=== PATIENT | female | born 1985 ===

== ENCOUNTER → 2019-09-18 08:40 | Outpatient (BNVA) | payer OTHER, SELFPAY | PROVIDERS: Visit Provider Psychiatry & Neurology Psychiatry | DX: F33.3 Major depressive disorder, recurrent, severe with psychotic symptoms (principal); F43.10 Post-traumatic stress disorder, unspecified; G47.00 Insomnia, unspecified | CPT/HCPCS: 99204 ==

== ENCOUNTER 2019-09-18 11:35 | Inpatient (IN) | payer OTHER, SELFPAY ==
[2019-09-18 11:40] VITALS: BP 201/97; PULSE 73; RESP 18; TEMP 36.6; O2SAT 98; BMI 46.5
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
[2019-09-18 12:03] LABS: Basophils % 0.4 %; Eosinophils # 0.2 10^3/uL (0.0-0.8); Eosinophils % 1.5 %; Hematocrit 39.4 % (37.0-47.0); Hemoglobin 11.9 g/dL (11.5-15.3); Lymphocytes # 2.6 10^3/uL (0.8-4.8); Lymphocytes % 26.6 %; Mean Corpuscular HGB Conc 30.2 g/dL (30.0-36.0); Mean Corpuscular Hemoglobin 25.2 pg (28.0-34.0); Mean Corpuscular Volume 83.5 fL (81-99); Mean Platelet Volume 10.8 fL (7.4-10.4); Monocytes # 0.8 10^3/uL (0.2-0.9); Monocytes % 7.6 %; Neutrophils # 6.3 10^3/uL (1.8-7.7); Neutrophils % 63.4 %; Nucleated Red Blood Cells % 0 %; Platelet Count 334 10^3/cmm (130-400); Red Blood Count 4.72 10^6/uL (4.1-5.3); Red Cell Distribution Width 15.2 % (12.1-15.1); White Blood Count 9.9 10^3/uL (4.0-10.0)
[2019-09-18 12:12] LABS: HCG Qualitative Urine. Negative (Negative)
[2019-09-18 12:18] LABS: Alanine Aminotransferase 14 U/L (0-33); Albumin Level 4.2 g/dL (3.5-5.2); Alkaline Phosphatase 101 IU/L (35-105); Aspartate Amino Transferase 16 U/L (0-32); Blood Urea Nitrogen 10 mg/dL (6-20); Calcium 9.3 mg/dL (8.5-10.5); Carbon Dioxide 23 mmol/L (22-29); Chloride 102 mmol/L (98-107); Creatinine Clr Calc Pharmacy 151.9587; Globulin 3.7 g/dL (1.3-4.6); Glomerular Filtration Rate 95.8 mL/min (90-130); Glucose 97 mg/dL (65-115); Osmolality Calculated 280 mOsm/kg (285-295); Sodium 137 mmol/L (136-145); Total Bilirubin 0.3 mg/dL (0.15-1.2); Total Protein 7.9 g/dL (6.6-8.7)
[2019-09-18 12:21] LABS: Amphetamines Screen Urine Negative (Negative); Barbiturates Screen Urine Negative (Negative); Benzodiazepines Screen Urine Negative (Negative); Cocaine Screen Urine Negative (Negative); Opiate Screen Urine Negative (Negative); PCP Screen Urine Negative (Negative); THC Screen Urine Negative (Negative)
[2019-09-18 12:25] LABS: Alcohol Level < 10 mg/dL (0-10)
[2019-09-18 12:40] LABS: Acetaminophen < 5.0 ug/mL (10-30); Salicylate < 0.3 mg/dL (3-10)
--- NOTE | 2019-09-18 13:11 | PC.NURSE ---
Patient is very tearful at this time. Patient offered food and drink, denies need at this time. Pt denies any other needs at this time. Tissues provided to patient at this time.
[2019-09-18 13:38] VITALS: BP 171/92; PULSE 70; RESP 18; TEMP 36.6; O2SAT 100
[2019-09-18 14:00] VITALS: BP 158/100; PULSE 68; RESP 20; TEMP 36.8; O2SAT 100
[2019-09-18] MEDS: acetaminophen 325 mg Tablet 650 MG PO (20:29)
[2019-09-18] MEDS: hyDROXYzine 25 mg Capsule 50 MG PO (20:30)
--- NOTE | 2019-09-18 20:59 | PC.NURSE ---
PRN VISTARIL PT GIVEN VISTARIL 50 MG PO FOR INCREASING ANXIETY. WILL MONITOR FOR MEDICATION EFFECTIVENESS.
[2019-09-18 21:07] VITALS: BP 152/111; PULSE 73; RESP 18; TEMP 37; O2SAT 98
[2019-09-19 06:00] VITALS: BP 148/81; PULSE 59; RESP 16; TEMP 36.2; O2SAT 98
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
[2019-09-19] MEDS: fluoxetine 20 mg Capsule PO (12:52)
[2019-09-19 14:00] VITALS: BP 158/100; PULSE 72; RESP 18; TEMP 37; O2SAT 99
[2019-09-19] MEDS: propranolol 20 mg Tablet PO ×2 (14:50→20:47)
[2019-09-19] MEDS: acetaminophen 325 mg Tablet 650 MG PO (14:50)
[2019-09-19 21:55] VITALS: BP 133/82; PULSE 78; RESP 19; TEMP 37.1; O2SAT 97
[2019-09-20 06:00] VITALS: BP 120/80; PULSE 65; RESP 18; TEMP 36.9; O2SAT 98
[2019-09-20] MEDS: fluoxetine 20 mg Capsule PO (08:32)
[2019-09-20] MEDS: propranolol 20 mg Tablet PO (08:32)
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
[2019-09-20 12:53] VITALS: BP 120/80; PULSE 65; RESP 18; TEMP 36.9; O2SAT 98
== END 2019-09-20 13:50 | disposition home or self-care (01) | DRG 885 ==
LOC: ER 13:03 → NP 13:26
PROVIDERS: Admitting Provider Psychiatry & Neurology Psychiatry; Emergency Provider Emergency Medicine; Visit Provider Psychiatry & Neurology Psychiatry
DX: F33.2 Major depressive disorder, recurrent severe without psychotic features (principal); Z68.42 Body mass index [BMI] 45.0-49.9, adult; R45.851 Suicidal ideations; F60.3 Borderline personality disorder; F43.11 Post-traumatic stress disorder, acute; F17.210 Nicotine dependence, cigarettes, uncomplicated; Z62.810 Personal history of physical and sexual abuse in childhood; Z62.819 Personal history of unspecified abuse in childhood; E66.01 Morbid (severe) obesity due to excess calories; E28.2 Polycystic ovarian syndrome
CPT/HCPCS: 12345; 36415; 80053; 80306; 80307; 81025; 85025; 99284

== ENCOUNTER → 2019-09-27 11:05 | Outpatient (BNVA) | payer OTHER, SELFPAY | PROVIDERS: Visit Provider Counselor Professional | DX: F43.10 Post-traumatic stress disorder, unspecified (principal); F33.9 Major depressive disorder, recurrent, unspecified; F60.3 Borderline personality disorder | CPT/HCPCS: 90834 ==

== ENCOUNTER → 2019-10-04 08:31 | Outpatient (BNVA) | payer OTHER, SELFPAY | PROVIDERS: Visit Provider Psychiatry & Neurology Psychiatry | DX: F60.3 Borderline personality disorder (principal); F43.12 Post-traumatic stress disorder, chronic; F33.9 Major depressive disorder, recurrent, unspecified | CPT/HCPCS: 90834; 99213 ==

== ENCOUNTER → 2019-10-18 09:06 | Outpatient (BNVA) | payer OTHER, SELFPAY | PROVIDERS: Visit Provider Counselor Professional | DX: F43.10 Post-traumatic stress disorder, unspecified (principal); F33.9 Major depressive disorder, recurrent, unspecified; F60.3 Borderline personality disorder | CPT/HCPCS: 90832 ==

== ENCOUNTER → 2019-10-31 16:06 | Outpatient (BNVA) | payer OTHER, SELFPAY | PROVIDERS: Visit Provider Counselor Professional | DX: F43.10 Post-traumatic stress disorder, unspecified (principal); F33.9 Major depressive disorder, recurrent, unspecified; F60.3 Borderline personality disorder | CPT/HCPCS: 90834 ==

== ENCOUNTER → 2019-11-14 08:34 | Outpatient (BNVA) | payer OTHER, SELFPAY | PROVIDERS: Visit Provider Nurse Practitioner Psychiatric/Mental Health | DX: F33.9 Major depressive disorder, recurrent, unspecified (principal); F43.10 Post-traumatic stress disorder, unspecified; F60.3 Borderline personality disorder | CPT/HCPCS: 99213 ==

== ENCOUNTER 2020-02-24 06:55 | Outpatient (CLI) | payer SELFPAY ==
--- NOTE | 2020-02-24 07:25 | MM_ITS ---
WS: [id number] BILATERAL DIGITAL SCREENING MAMMOGRAPHY WITH CAD CLINICAL INFORMATION: SCREEN HISTORY: Screening mammogram. No current complaints. COMPARISON: January 10, 2019 TECHNIQUE: Bilateral CC and MLO views. FINDINGS: Scattered fibroglandular densities bilaterally. No suspicious focal mass, asymmetry, calcifications, or architectural distortion. No evidence of malignancy. MM/[id number] IMPRESSION: BI-RADS: 1-Negative FOLLOW UP: 1 Year Follow-up Recommend return to annual screening mammography.
== END 2020-02-24 06:56 | disposition home or self-care (01) ==
LOC: RADSHAW 06:56
PROVIDERS: Visit Provider Obstetrics & Gynecology
DX: Z12.31 Encounter for screening mammogram for malignant neoplasm of breast (principal)
CPT/HCPCS: 77067

== ENCOUNTER → 2020-03-16 15:27 | Outpatient (BNVA) | payer SELFPAY | PROVIDERS: Visit Provider Family Medicine Adult Medicine | DX: D64.9 Anemia, unspecified (principal); E66.01 Morbid (severe) obesity due to excess calories; Z68.42 Body mass index [BMI] 45.0-49.9, adult; F51.4 Sleep terrors [night terrors]; F43.10 Post-traumatic stress disorder, unspecified; F60.3 Borderline personality disorder | CPT/HCPCS: 80053; 80061; 84439; 84443; 85025 ==

== ENCOUNTER 2020-04-07 20:00 | Outpatient (CLI) | payer SELFPAY | END 2020-04-07 20:01 | disposition home or self-care (01) | LOC: SLEEP 04-08 10:24 | PROVIDERS: Visit Provider Family Medicine Adult Medicine | DX: R06.83 Snoring (principal); R53.83 Other fatigue; G47.33 Obstructive sleep apnea (adult) (pediatric) | CPT/HCPCS: 95810 ==

== ENCOUNTER 2020-04-28 20:00 | Outpatient (CLI) | payer SELFPAY | END 2020-04-28 20:01 | disposition home or self-care (01) | LOC: SLEEP 04-29 09:48 | PROVIDERS: Visit Provider Family Medicine Adult Medicine | DX: G47.33 Obstructive sleep apnea (adult) (pediatric) (principal) | CPT/HCPCS: 95811 ==

== ENCOUNTER 2021-08-30 16:34 | Emergency (ER) | payer MEDICAID, SELFPAY ==
[2021-08-30 16:42] VITALS: BP 133/86; PULSE 116; RESP 16; TEMP 36.8; O2SAT 96; BMI 52.7
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
[2021-08-30 18:42] VITALS: BP 164/95; PULSE 114; O2SAT 95
[2021-08-30 18:46] VITALS: BP 164/95; PULSE 114; RESP 16; O2SAT 95
[2021-08-30 18:46] LABS: Basophils % 0.3 %; Eosinophils % 0.1 %; Hematocrit 49.6 % (37.0-47.0); Hemoglobin 16.2 g/dL (11.5-15.3); Lymphocytes # 0.6 10^3/uL (0.8-4.8); Lymphocytes % 5.4 %; Mean Corpuscular HGB Conc 32.7 g/dL (30.0-36.0); Mean Corpuscular Hemoglobin 28.9 pg (28.0-34.0); Mean Corpuscular Volume 88.4 fl (81-99); Mean Platelet Volume 11.5 fL (7.4-10.4); Monocytes # 0.4 10^3/uL (0.2-0.9); Monocytes % 3.7 %; Neutrophils # 10.44 10^3/uL (1.8-7.7); Neutrophils % 90.2 %; Nucleated Red Blood Cells % 0 %; Platelet Count 268 10^3/cmm (130-400); Red Blood Count 5.61 10^6/uL (4.1-5.3); Red Cell Distribution Width 14.1 % (12.1-15.1); White Blood Count 11.6 10^3/uL (4.0-10.0)
[2021-08-30 19:09] VITALS: RESP 16
[2021-08-30] MEDS: morphine 4 mg/mL SDV 1 mL IVP (19:09)
[2021-08-30] MEDS: ondansetron 2 mg/ML SDV 2 mL 4 MG IVP (19:09)
[2021-08-30] MEDS: lactated ringers 1,000 ML 999 ML IV ×2 (19:11→22:53)
[2021-08-30 19:34] LABS: HCG Qualitative Urine. Negative (Negative)
[2021-08-30 19:40] LABS: Specific Gravity, Urine 1.015 (1.005-1.030); Urine Appearance Clear (CLEAR); Urine Color Yellow (Yellow); pH Urine 5 (5-7)
[2021-08-30 19:41] LABS: Add Urine Microscopic? YES; Bacteria Urine 1+ /hpf; Bilirubin Urine 1+ (Negative); Blood Urine Neg (Negative); Glucose Urine UA Norm (Normal); Ketones Urine 1+ (Negative); Leukocyte Esterase Urine 2+ (Negative); Mucus Urine 1+ /hpf; Nitrate Urine Negative (Negative); Protein Urine Neg (Negative); RBC Urine 0-4 /hpf (0-2); Urobilinogen Urine Norm (Negative); WBC Urine 15-25 /hpf (0-5)
[2021-08-30 19:46] LABS: Influenza A by IFA Negative (Negative); Influenza B by IFA Negative (Negative)
--- NOTE | 2021-08-30 20:34 | CTR_ITS ---
PROCEDURE INFORMATION: Exam: CT Abdomen And Pelvis With Contrast Exam date and time: 08/30/2021 9:10 PM Age: 36 years old Clinical indication: Nausea and vomiting; Abdominal pain; Generalized; Patient HX: C/O abd pain with n/v/d. ; Additional info: Abdominal pain, n/v/d TECHNIQUE: Imaging protocol: Computed tomography of the abdomen and pelvis with contrast. Radiation optimization: All CT scans at this facility use at least one of these dose optimization techniques: automated exposure control; mA and/or kV adjustment per patient size (includes targeted exams where dose is matched to clinical indication); or iterative reconstruction. Contrast material: OMNI 300; Contrast volume: 95 ml; Contrast route: INTRAVENOUS (IV); COMPARISON: CR Abdomen Series Acute [id number] 06/13/2016 2:24 AM RADIATION DOSE METRICS: Total DLP (mGy-cm): 1892.9 FINDINGS: Liver: Diffuse fatty infiltration of the liver. Hepatomegaly. Gallbladder and bile ducts: Sludge in the gallbladder. No wall thickening visualized. The bile ducts are normal. Pancreas: Normal. No ductal dilation. Spleen: Normal. No splenomegaly. Adrenal glands: Normal. No mass. Kidneys and ureters: Normal. No hydronephrosis. Stomach and bowel: Unremarkable. No obstruction. No mucosal thickening. Appendix: The appendix is visualized and is normal. Intraperitoneal space: Unremarkable. No free air. No significant fluid collection. Vasculature: Unremarkable. No abdominal aortic aneurysm. Lymph nodes: Unremarkable. No enlarged lymph nodes. Urinary bladder: Unremarkable as visualized. Reproductive: Unremarkable as visualized. Bones/joints: Unremarkable. No acute fracture. Soft tissues: Small fat containing umbilical hernia. CT/CT abdomen pelvis w con* [id number] IMPRESSION: 1. No acute abnormality identified in the abdomen or pelvis. 2. Enlarged liver with fatty infiltration.
[2021-08-30 21:06] LABS: Alanine Aminotransferase 24 U/L (0-33); Albumin Level 4.3 g/dL (3.5-5.2); Alkaline Phosphatase 99 IU/L (35-105); Anion Gap 17.8 (5-19); Aspartate Amino Transferase 14 U/L (0-32); Blood Urea Nitrogen 9 mg/dL (6-20); Calcium 9.3 mg/dL (8.5-10.5); Carbon Dioxide 23 mmol/L (22-29); Chloride 102 mmol/L (98-107); Globulin 3.3 g/dL (1.3-4.6); Glomerular Filtration Rate 81.2 mL/min (90-130); Glucose 116 mg/dL (65-115); Lipase 11 U/L (13-60); Osmolality Calculated 288 mOsm/kg (285-295); Potassium 3.8 mmol/L (3.5-5.1); Sodium 139 mmol/L (136-145); Total Bilirubin 0.5 mg/dL (0.15-1.2); Total Protein 7.6 g/dL (6.6-8.7)
[2021-08-30] MEDS: iohexol 300 mg/mL 100 mL Btl IV (21:11)
[2021-08-30] MEDS: ketorolac 30 mg/mL INJ 15 MG IVP (22:53)
[2021-08-30] MEDS: diphenhydrAMINE 50 mg/mL SDV 1mL 25 MG IVP (22:53)
[2021-08-30] MEDS: metoclopramide 5 mg/mL SDV 2 mL 10 MG IVP (22:54)
[2021-08-31 00:27] VITALS: BP 145/78; PULSE 97; RESP 16; TEMP 36.8; O2SAT 98
[2021-08-31 00:51] VITALS: BP 137/78; PULSE 94; RESP 16; TEMP 36.8; O2SAT 98
== END 2021-08-31 00:53 | disposition home or self-care (01) ==
PROVIDERS: Emergency Medicine; Emergency Provider Emergency Medicine
DX: B34.9 Viral infection, unspecified (principal); E86.0 Dehydration; K76.0 Fatty (change of) liver, not elsewhere classified; F17.210 Nicotine dependence, cigarettes, uncomplicated
CPT/HCPCS: 74177; 80053; 81001; 81025; 83690; 85025; 87804; 96361; 96374; 96375; 99284; J1200; J1885; J2270; J2405; J2765; Q9967

== ENCOUNTER → 2021-09-30 11:13 | Outpatient (BNVA) | payer MEDICAID, SELFPAY | PROVIDERS: PCP Family Medicine Adult Medicine; Visit Provider Nurse Practitioner Psychiatric/Mental Health | DX: F60.3 Borderline personality disorder (principal); F43.10 Post-traumatic stress disorder, unspecified; F33.41 Major depressive disorder, recurrent, in partial remission | CPT/HCPCS: 99214 ==

== ENCOUNTER → 2022-03-02 10:27 | Outpatient (BNVA) | payer BC, SELFPAY | PROVIDERS: PCP Family Medicine Adult Medicine; Visit Provider Nurse Practitioner Family | DX: J02.0 Streptococcal pharyngitis (principal); J03.90 Acute tonsillitis, unspecified | CPT/HCPCS: 87880 ==

== ENCOUNTER → 2022-04-20 14:35 | Outpatient (BNVA) | payer BC, MEDICAID, SELFPAY | PROVIDERS: PCP Family Medicine Adult Medicine; Visit Provider Family Medicine | DX: J02.0 Streptococcal pharyngitis (principal) | CPT/HCPCS: 87880 ==

== ENCOUNTER 2022-05-10 02:20 | Emergency (ER) | payer BC, MEDICAID, SELFPAY ==
[2022-05-10 02:26] VITALS: BP 171/94; PULSE 97; RESP 18; TEMP 36.8; O2SAT 97; BMI 44.7
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
[2022-05-10] MEDS: HYDROcodone-acetaminophen 7.5-325 mg Tablet 1 TAB PO (02:45)
[2022-05-10] MEDS: ketorolac 30 mg/mL INJ IM (02:45)
== END 2022-05-10 03:05 | disposition home or self-care (01) ==
PROVIDERS: Emergency Provider Nurse Practitioner Family; PCP Family Medicine Adult Medicine
DX: S16.1XXA Strain of muscle, fascia and tendon at neck level, initial encounter (principal); S39.92XA Unspecified injury of lower back, initial encounter; S29.9XXA Unspecified injury of thorax, initial encounter; F17.210 Nicotine dependence, cigarettes, uncomplicated; V89.0XXA Person injured in unspecified motor-vehicle accident, nontraffic, initial encounter
CPT/HCPCS: 96372; 99284; J1885

== ENCOUNTER 2022-05-16 10:56 | Emergency (ER) | payer BC, MEDICAID, SELFPAY ==
[2022-05-16 11:16] VITALS: BP 173/87; PULSE 68; RESP 18; TEMP 36.5; O2SAT 100
[2022-05-16 12:03] LABS: Basophils % 0.6 %; Eosinophils # 0.1 10^3/uL (0.0-0.8); Eosinophils % 0.8 %; Hematocrit 50.8 % (37.0-47.0); Hemoglobin 15.3 g/dL (11.5-15.3); Lymphocytes # 1.9 10^3/uL (0.8-4.8); Mean Corpuscular HGB Conc 30.1 g/dL (30.0-36.0); Mean Corpuscular Hemoglobin 29.7 pg (28.0-34.0); Mean Corpuscular Volume 98.4 fl (81-99); Mean Platelet Volume 10.6 fL (7.4-10.4); Monocytes # 0.6 10^3/uL (0.2-0.9); Monocytes % 9.8 %; Neutrophils # 3.62 10^3/uL (1.8-7.7); Neutrophils % 58.3 %; Nucleated Red Blood Cells % 0 %; Platelet Count 245 10^3/cmm (130-400); Red Blood Count 5.16 10^6/uL (4.1-5.3); Red Cell Distribution Width 13.2 % (12.1-15.1); White Blood Count 6.2 10^3/uL (4.0-10.0)
[2022-05-16 12:22] LABS: Alanine Aminotransferase 38 U/L (0-33); Alkaline Phosphatase 76 U/L (35-105); Aspartate Amino Transferase 24 U/L (0-32); Blood Urea Nitrogen 8 mg/dL (6-20); Calcium 9.3 mg/dL (8.5-10.5); Carbon Dioxide 21 mmol/L (22-29); Chloride 102 mmol/L (98-107); Globulin 3.8 g/dL (1.3-4.6); Glomerular Filtration Rate 138.8 mL/min (90-130); Glucose 80 mg/dL (65-115); Osmolality Calculated 279 mOsm/kg (285-295); Sodium 136 mmol/L (136-145); Total Bilirubin 0.5 mg/dL (0.15-1.2); Total Protein 7.8 g/dL (6.6-8.7)
[2022-05-16 12:24] LABS: Anion Gap 16.8 (5-19); Potassium 3.8 mmol/L (3.5-5.1)
--- NOTE | 2022-05-16 13:37 | W.ED.ABDPA2 ---
HPI - Abdominal Pain General: Chief Complaint: Abdominal Pain Stated Complaint: Unknown Time Seen by Provider: 05/16/22 13:37 History of Present Illness: Ms. Duarte is a 37-year-old lady presenting to the emergency department due to nausea, vomiting, fevers, and abdominal pain. She reports onset of symptoms subacute approximately 1 week ago. Denies known specific provoking event. Since that time she has had multiple episodes of nonbilious and nonbloody emesis from today. Provoked by any oral intake. Has seen PCP and treated outpatient with antiemetic without significant relief. Abdominal pain is primarily epigastric and worse with vomiting. Intensity of symptoms is moderate. Course has worsened. No other specific changes in health, exacerbating, or alleviating factors identified. LMP reported to be mid March Onset (ago): week(s) Pain Consistency: constant Location: Epigastric Severity: moderate Quality: cramping, aching and sharp Exacerbating factors: eating and vomiting Relieving factors: nothing Associated Symptoms: Reports chills, nausea and vomiting Related Data: Date of Last Menstrual Period: 07/31/19 Review of Systems General: Reports: 10 or more systems reviewed and unremarkable except in HPI and below Const: Reports: chills GI: Reports: nausea and vomiting PFSH ED PFSH: Medical History Abnormal uterine bleeding 04/05/19--- 34-year-old female with morbid obesity, complaining she has been with vaginal bleeding for 4 months. She refers she had been diagnosed previously with PCOS by some providers and others not. She refers that she had been treated with OCPs and the Depo without resolution. She also refers she has not had a Pap in at least 4 years. Patient was counseled regarding the most common causes of excessive menstrual bleeding are: anovulation, abnormal growths in the uterus, such as polyps or fibroids, and bleeding disorders. Evaluation entails blood tests to look for a bleeding disorder, anemia, or thyroid disease, a pelvic ultrasound, which can detect endometrial polyps and fibroids, an endometrial biopsy or a hysteroscopy. Treatment options are medical treatment and surgical treatment. But the best treatment of heavy menstrual bleeding will depend on the cause of the bleeding and the patient?s preferences with need to prevent or desire to have children in the future. Medical treatment can be Hormonal control, (the pill, skin patch, vaginal ring, shot, hormonal IUD, and implant), Antifibrinolytic medicines, Non-steroidal anti-inflammatory drugs, Progestin pills, GnRH agonists. Surgical treatment also depends on the cause of AUB and may be myomectomy, endometrial ablation and a hysterectomy. A patient education handout about menorrhagia was given. Bilateral knee pain Dehydration symptoms Epidermoid cyst Ganglion cyst of dorsum of right wrist Gastroenteritis Infertility 04/15/2014-- Discussed that her inability to get was possibly because of an ovulation caused by PCO S.. given that her is 52 years old with medical problems like diabetes I would also recommend a [id number] evaluation to rule out male factor as a cause for her infertility. I would recommend him getting a sperm count as well. Discussed that I would recommend initial regulation of her period for about 6 months and then we can consider ovulation induction with Clomid. Offered her the option of seeing an infertility specialist which she declines at this point. We will reevaluate her infertility in 6 months. Insomnia disorder with non-sleep disorder mental comorbidity Morbid obesity with BMI of 45.0-49.9, adult Night terrors, adult PCOS (polycystic ovarian syndrome) 04/12/19--- Patient came with irregular bleeding-first, who has a history of oligomenorrhea. She refers she was told before that she might have PCOS. Pelvic ultrasound done showed normal uterus and multifolicular ovaries. Bilateral ovaries had several follicles. Discussed that her oligomenorrhea and excess vaginal bleeding when she gets her period as well as increased hair growth noticed on her face were sufficient to give her a diagnosis of PCOS. Discussed the ultrasound shows multifollicular ovaries were suspicious for PCOS. Discussed that since her TSH, prolactin, test was normal and her ultrasound showed no major abnormalities of her uterus and multifollicular ovaries that PCOS was the most likely cause of her irregular menses. I discussed that PCOS was a state of excessive estrogen and androgen levels. Discussed that women with PCOS are at a higher risk of developing hypertension, diabetes, coronary artery disease, elevated cholesterol level, insulin resistance. I discussed that it would be important to screen for these with fasting lipid level as well as two-hour glucose tolerance test. I also discussed that the hormonal imbalance causes her oligomenorrhea and that she was likely having anovulatory cycles. I discussed that the most important thing to do would be weight loss through exercise and diet. I recommend 30 minutes to one hour of exercise 5-6 times a week, low carbohydrate diet. I discussed that women who lost 10-15% of body fat automatically began ovulating and having regular menstrual periods. She refer she does not want to get . I discussed that the unopposed estrogen in patients with PCOS can cause endometrial hyperplasia/cancer. I discussed that it was important to induce regular periods. She agrees with this plan and as she currently does not plan to get we will use control pills to obtain regular periods as well as to prevent . In 6 months if she has lost sufficient weight, we will stop control pills and see if she cycles on her own. Post traumatic stress disorder (PTSD) Psychiatric care Severe obstructive sleep apnea-hypopnea syndrome Subcutaneous nodule of chest wall Viral syndrome Surgical History No history of previous surgery Family History Mother Breast cancer dx age Hypertension Grandmother Hypertension MATERNAL AND PATERNAL Diabetes MATERNAL Grandfather Hypertension MATERNAL AND PATERNAL Heart disease MATERNAL AND PATERNAL Family/Other No problems noted. Denies family history of Colon cancer Ovarian cancer Hyperlipidemia Uterine cancer Thyroid disease Stroke Female Reproductive History: Date of last menstrual period: 07/31/19 Para: 0 Spontaneous abortions: No Physical Exam Const: COMMON NORMALS: alert GENERAL APPEARANCE: cooperative and well developed HENMT: COMMON NORMALS: normocephalic and atraumatic HEAD & SCALP: normocephalic and atraumatic Eye: COMMON NORMALS: conjunctivae normal CONJUNCTIVA: Yes conjunctivae normal SCLERA: sclerae normal Neck/C-Spine: COMMON NORMALS: supple GENERAL: Yes trachea midline Resp: COMMON NORMALS: clear to auscultation bilaterally EFFORT & INSPECTION: Yes able to speak in complete sentences AUSCULTATION: clear to auscultation bilaterally Cardio: COMMON NORMALS: regular rate and regular rhythm RATE: regular rate RHYTHM: regular rhythm GI: COMMON NORMALS: Soft to palpation PALPATION: Yes Soft to palpation, Yes Tenderness to palpation present (GI), No Guarding due to palpation present (GI) and No Rigid due to palpation Extremity: GENERAL: Yes normal exam except as noted and No edema Neuro: COMMON NORMALS: moves all extremities SENSORIUM/ORIENTATION: Yes alert and No Orientation impaired Psych: COMMON NORMALS: mental status grossly normal and Normal thought process present THOUGHT PROCESS: Normal thought process present Course Vital Signs: Vital signs: Vital Signs Temperature 97.7 F 05/16/22 16:17 Pulse Rate 68 05/16/22 16:17 Respiratory Rate 18 05/16/22 16:17 Blood Pressure 173/87 05/16/22 16:17 Pulse Oximetry 100 05/16/22 16:17 MDM - Abdominal Pain Medical Decision Making 37-year-old lady presenting with 1 week history of GI symptoms. Exam as above. Labs with no significant hematologic abnormality, metabolic panel with perhaps mild evidence of dehydration. hCG is positive. No evidence of UTI. Given abdominal symptoms and ED diagnosis of I believe that ultrasound is warranted. Ultrasound demonstrates gestational age 7 weeks 3 days and is an IUP. Patient proved with IV fluids and antiemetics and able to tolerate p.o. intake. Most likely etiology is nausea vomiting associated with . The results of ED evaluation were discussed with the patient including prescriptions and/or symptomatic cares (if applicable) including appropriate and responsible use, followup plan, and return precautions. The patient verbalized understanding and felt safe for discharge. Medical Records I reviewed the patient's medical records. Lab Data I reviewed the patient's lab results. 05/16/22 11:53 05/16/22 11:53 Labs/Radiology: Radiology Impressions Transvaginal US 05/16/22 15:12 IMPRESSION: Live intrauterine gestation. Laboratory Results WBC 6.2 10^3/uL (4.0-10.0) 05/16/22 11:53 RBC 5.16 10^6/uL (4.1-5.3) 05/16/22 11:53 Hgb 15.3 g/dL (11.5-15.3) 05/16/22 11:53 Hct 50.8 % (37.0-47.0) H 05/16/22 11:53 MCV 98.4 fl (81-99) 05/16/22 11:53 MCH 29.7 pg (28.0-34.0) 05/16/22 11:53 MCHC 30.1 g/dL (30.0-36.0) 05/16/22 11:53 RDW 13.2 % (12.1-15.1) 05/16/22 11:53 Plt Count 245 10^3/cmm (130-400) 05/16/22 11:53 MPV 10.6 fL (7.4-10.4) H 05/16/22 11:53 Neut % (Auto) 58.3 % 05/16/22 11:53 Lymph % (Auto) 30.0 % 05/16/22 11:53 Alfalfa % (Auto) 9.8 % 05/16/22 11:53 Eos % (Auto) 0.8 % 05/16/22 11:53 Baso % (Auto) 0.6 % 05/16/22 11:53 Neut # (Auto) 3.62 10^3/uL (1.8-7.7) 05/16/22 11:53 Lymph # (Auto) 1.9 10^3/uL (0.8-4.8) 05/16/22 11:53 Alfalfa # (Auto) 0.6 10^3/uL (0.2-0.9) 05/16/22 11:53 Eos # (Auto) 0.1 10^3/uL (0.0-0.8) 05/16/22 11:53 Baso # (Auto) 0.0 10^3/uL (0.0-0.1) 05/16/22 11:53 Nucleated RBC % (auto) 0 % 05/16/22 11:53 Nucleated RBCs # 0.0 /100WBC 05/16/22 11:53 Sodium 136 mmol/L (136-145) 05/16/22 11:53 Potassium 3.8 mmol/L (3.5-5.1) 05/16/22 11:53 Chloride 102 mmol/L (98-107) 05/16/22 11:53 Carbon Dioxide 21 mmol/L (22-29) L 05/16/22 11:53 Anion Gap 16.8 (5-19) 05/16/22 11:53 BUN 8 mg/dL (6-20) 05/16/22 11:53 Creatinine 0.5 mg/dL (0.5-0.9) 05/16/22 11:53 GFR Calculation 138.8 mL/min (90-130) H 05/16/22 11:53 Glucose 80 mg/dL (65-115) 05/16/22 11:53 Calculated Osmolality 279 mOsm/kg (285-295) L 05/16/22 11:53 Calcium 9.3 mg/dL (8.5-10.5) 05/16/22 11:53 Total Bilirubin 0.5 mg/dL (0.15-1.2) 05/16/22 11:53 AST 24 U/L (0-32) 05/16/22 11:53 ALT 38 U/L (0-33) H 05/16/22 11:53 Alkaline Phosphatase 76 U/L (35-105) 05/16/22 11:53 Total Protein 7.8 g/dL (6.6-8.7) 05/16/22 11:53 Albumin 4.0 g/dL (3.5-5.2) 05/16/22 11:53 Globulin 3.8 g/dL (1.3-4.6) 05/16/22 11:53 HCG, Qual Positive (Negative) H 05/16/22 14:15 Ser , Semi-Qnt 62018.00 mIU/mL 05/16/22 11:53 Urine Color Janice (Yellow) 05/16/22 16:10 Urine Appearance Clear (CLEAR) 05/16/22 16:10 Urine pH 6 (5-7) 05/16/22 16:10 Ur Specific [place] 1.025 (1.005-1.030) 05/16/22 16:10 Urine Protein Trace (Negative) 05/16/22 16:10 Urine Glucose (UA) Norm (Normal) 05/16/22 16:10 Urine Ketones 2+ (Negative) H 05/16/22 16:10 Urine Blood Neg (Negative) 05/16/22 16:10 Urine Nitrate Negative (Negative) 05/16/22 16:10 Urine Bilirubin Neg (Negative) 05/16/22 16:10 Urine Urobilinogen 4 mg/dL (Negative) H 05/16/22 16:10 Ur Leukocyte Esterase Negative (Negative) 05/16/22 16:10 Urine RBC None /hpf (0-2) 05/16/22 16:10 Urine WBC 0-4 /hpf (0-5) H 05/16/22 16:10 Ur Squamous Epith Cells 0-4 /hpf (0-5) H 05/16/22 16:10 Amorphous Sediment Not Reportable 05/16/22 16:10 Urine Bacteria Trace /hpf (NONE) 05/16/22 16:10 Discharge Plan Discharge Patient Disposition: Home Clinical Impression: Nausea & vomiting, Abdominal pain, Condition: Stable Prescriptions: New doxylamine succinate 25 mg tablet 12.5 mg PO Q6H PRN (Reason: nausea and vomiting) Qty: 30 0RF No Action [id number] oil 400 mcg-35 mg -25 mg-5 mg tablet,chewable PO fluoxetine 40 mg capsule 80 mg PO QAM Qty: 60 1RF Rx Instructions: take two capsules by mouth every morning propranolol 20 mg tablet 20 mg PO BID PRN (Reason: anxiety) Qty: 60 1RF Rx Instructions: take one tablet by mouth morning and evening, if needed for anxiety Discharge Orders: Discharge ED (Routine); Ordered 05/16/22 Ordered By: Minh Nicole Referrals: Selvin Conrad MD [Primary Care Provider] - Discharge Diet: Usual diet Discharge Activity: Increase activity as tolerated Patient Instructions: Nausea and Vomiting in (ED), at 7 to 10 Weeks (ED) Activity Restrictions/Additional Instructions: Thank you for visiting the emergency department. You were seen evaluated for nausea and vomiting as well as abdominal discomfort. The most likely cause of your symptoms is related to . I will message case management for follow-up with an dough molder hand. Please ensure that you are staying hydrated. I will prescribe doxylamine and vitamin B6 which is first-line for nausea and vomiting during . I will also prescribe Reglan. Based on ultrasound today you are 8 weeks 3 days and estimated due date is 12/23/2022. Return to the emergency department for uncontrolled symptoms or anything else that you are concerned about and feel needs emergency department evaluation. Coding Level of Care Code ED Dental Specialist for [facility]ai Fwd Exam Comprehensive
[2022-05-16] MEDS: sodium chloride 0.9% 1,000 ML 999 ML IV (14:19)
[2022-05-16] MEDS: metoclopramide 5 mg/mL SDV 2 mL 10 MG IVP (14:19)
[2022-05-16 14:39] LABS: HCG, Serum Qual Positive (Negative)
--- NOTE | 2022-05-16 15:12 | USR_ITS ---
PROCEDURE INFORMATION: Exam: US First Trimester, Transabdominal and US , Transvaginal Exam date and time: 05/16/2022 4:48 PM Age: 37 years old Clinical indication: Pain; Other: Nausea vomiting x1 week; Gestational age or lmp: 7w3d; ; Additional info: Abd pain, n/v, unsure last lmp, pos preg test. Hcg 19375 LABS AND CLINICAL REPORTS: Last menstrual period start date: 03/18/2022 Gestational age (Established): 8 w 3 d Estimated due date (Established): 12/23/2022 TECHNIQUE: Imaging protocol: Real-time transabdominal obstetrical ultrasound of the maternal pelvis and a first trimester , less than 14 weeks 0 days, with image documentation. Transvaginal imaging was used for better evaluation of the fetus, adnexa, and/or cervix. COMPARISON: CT abdomen pelvis w con* [id number] 08/30/2021 9:10 PM FINDINGS: Gestation: Yolk sac measures 3.2 mm. Embryonic/ heart rate: 144 bpm Extra-embryonic membranes/Placenta: Unremarkable. No subchorionic bleed. Amniotic fluid: Amniotic fluid and extra-amniotic fluid is normal for gestational age. BIOMETRY: Gestational age (AUA): 7 w 3 d Mean sac diameter: 3.2 cm. EGA (MSD) is 7 w 5 d [place] length (CRL): 11.6 mm. EGA (CRL) is 7 w 3 d MATERNAL: Uterus: Intrauterine gestation. No uterine mass. Cervix: Cervical length measures 4.2 cm. Right ovary/adnexa: Right ovary measures 2.4 x 2.3 x 4.9 cm. Vascular flow to the right ovary is preserved. Left ovary/adnexa: Corpus luteum noted in the left ovary. Left ovary measures 2.2 x 3.1 x 4.8 cm. Vascular flow to the left ovary is preserved. Intraperitoneal space: Trace free fluid in the posterior cul-de-sac. US/ OB transvaginal [id number] IMPRESSION: Live intrauterine gestation.
[2022-05-16 16:17] VITALS: BP 173/87; PULSE 68; RESP 18; TEMP 36.5; O2SAT 100
[2022-05-16 17:21] LABS: Add Urine Microscopic? YES; Bilirubin Urine Neg (Negative); Blood Urine Neg (Negative); Glucose Urine UA Norm (Normal); Ketones Urine 2+ (Negative); Leukocyte Esterase Urine Negative (Negative); Nitrate Urine Negative (Negative); Protein Urine Trace (Negative); Specific Gravity, Urine 1.025 (1.005-1.030); Urine Appearance Clear (CLEAR); Urine Color Amber (Yellow); Urobilinogen Urine 4 mg/dL (Negative); pH Urine 6 (5-7)
[2022-05-16 17:22] LABS: Add Urine Culture? No; Bacteria Urine TRACE /hpf; Squamous Epithelial Cell Urine 0-4 /hpf (0-5); WBC Urine 0-4 /hpf (0-5)
--- NOTE | 2022-05-17 10:01 | DCPLANNER ---
Addendum entered by Kavita Donis 05/19/22 11:31: Patient had a follow up appointment scheduled for 05.19.22 at [facility] - patient did attend appointment. Original Note: manager casino had message to schedule a follow up appointment for patient with [facility]. manager casino sent patients information to the front office staff at [facility]. Patients information will be printed and reviewed. Clinic will call patient with appointment information.
== END 2022-05-16 18:00 | disposition home or self-care (01) ==
PROVIDERS: Emergency Provider Emergency Medicine; PCP Family Medicine Adult Medicine
DX: O21.9 Vomiting of pregnancy, unspecified (principal); O26.891 Other specified pregnancy related conditions, first trimester; R10.9 Unspecified abdominal pain; Z3A.01 Less than 8 weeks gestation of pregnancy
CPT/HCPCS: 36415; 76817; 80053; 81001; 84702; 84703; 85025; 96361; 96374; 99285; J2765; J7030

== ENCOUNTER → 2022-05-19 08:31 | Outpatient (BNVA) | payer BC, MEDICAID, SELFPAY | PROVIDERS: PCP Family Medicine Adult Medicine; Visit Provider Nurse Practitioner Women's Health | DX: Z32.00 Encounter for pregnancy test, result unknown (principal); Z34.90 Encounter for supervision of normal pregnancy, unspecified, unspecified trimester; R82.90 Unspecified abnormal findings in urine | CPT/HCPCS: 81000; 81025; 87086 ==

== ENCOUNTER 2022-05-20 18:06 | Emergency (ER) | payer BC, MEDICAID, SELFPAY ==
[2022-05-20 18:33] VITALS: BP 176/112; PULSE 74; RESP 16; TEMP 36.9; O2SAT 95
--- NOTE | 2022-05-20 19:08 | ED_ITS ---
HPI - General: Chief complaint: Vaginal Bleeding Stated complaint: 7 Week Preg, Cramping and Bleeding Time Seen by Provider: 05/20/22 18:51 Source: patient Mode of arrival: ambulatory Limitations: no limitations History of Present Illness: See nursing system. Patient with complaints of spotting and mild pelvic cramping started this morning. Patient states that she has not passed any clots or saclike structures. She was seen in the emergency room on May 16, 2022 and had transvaginal ultrasound that showed 7-week 3- day live ending urine at that time. Adnexa were normal. Patient states this is her first . She believes she got in February. She does not know her blood type. She has had no care. Date of Last Menstrual Period: 07/31/19 Associated symptoms: Deny dysuria, headache(s), nausea or vomiting Review of Systems Const: Denies: fever(s) or chills Eyes: Denies: change in vision ENMT: Denies: throat pain Card: Denies: chest pain or palpitations Resp: Denies: dyspnea or wheezing GI: Reports: other (Mild suprapubic cramping.); Denies: nausea or vomiting : Reports: vaginal bleeding (Spotting); Denies: flank pain, dysuria or urinary frequency Musc: Denies: neck pain or back pain Skin/Breast: Denies: rash or pruritus Neuro: Denies: headache(s) or numbness in extremities Psych: Denies: anxiety Ronny/Lymph: Denies: enlarged lymph nodes [facility] ED PFSH: Medical History Abnormal uterine bleeding 04/05/19--- 34-year-old female with morbid obesity, complaining she has been with vaginal bleeding for 4 months. She refers she had been diagnosed previously with PCOS by some providers and others not. She refers that she had been treated with OCPs and the Depo without resolution. She also refers she has not had a Pap in at least 4 years. Patient was counseled regarding the most common causes of excessive menstrual bleeding are: anovulation, abnormal growths in the uterus, such as polyps or fibroids, and bleeding disorders. Evaluation entails blood tests to look for a bleeding disorder, anemia, or thyroid disease, a pelvic ultrasound, which can detect endometrial polyps and fibroids, an endometrial biopsy or a hysteroscopy. Treatment options are medical treatment and surgical treatment. But the best treatment of heavy menstrual bleeding will depend on the cause of the bleeding and the patient?s preferences with need to prevent or desire to have children in the future. Medical treatment can be Hormonal control, (the pill, skin patch, vaginal ring, shot, hormonal IUD, and implant), Antifibrinolytic medicines, Non-steroidal anti-inflammatory drugs, Progestin pills, GnRH agonists. Surgical treatment also depends on the cause of AUB and may be myomectomy, endometrial ablation and a hysterectomy. A patient education handout about menorrhagia was given. Bilateral knee pain Dehydration symptoms Epidermoid cyst Ganglion cyst of dorsum of right wrist Gastroenteritis Infertility 04/15/2014-- Discussed that her inability to get was possibly because of an ovulation caused by PCO S.. given that her is 52 years old with medical problems like diabetes I would also recommend a vozf-zz-crew evaluation to rule out male factor as a cause for her infertility. I would recommend him getting a sperm count as well. Discussed that I would recommend initial regulation of her period for about 6 months and then we can consider ovulation induction with Clomid. Offered her the option of seeing an infertility specialist which she declines at this point. We will reevaluate her infertility in 6 months. Insomnia disorder with non-sleep disorder mental comorbidity Morbid obesity with BMI of 45.0-49.9, adult Night terrors, adult PCOS (polycystic ovarian syndrome) 04/12/19--- Patient came with irregular bleeding-first, who has a history of oligomenorrhea. She refers she was told before that she might have PCOS. Pelvic ultrasound done showed normal uterus and multifolicular ovaries. Bilateral ovaries had several follicles. Discussed that her oligomenorrhea and excess vaginal bleeding when she gets her period as well as increased hair growth noticed on her face were sufficient to give her a diagnosis of PCOS. Discussed the ultrasound shows multifollicular ovaries were suspicious for PCOS. Discussed that since her TSH, prolactin, test was normal and her ultrasound showed no major abnormalities of her uterus and multifollicular ovaries that PCOS was the most likely cause of her irregular menses. I discussed that PCOS was a state of excessive estrogen and androgen levels. Discussed that women with PCOS are at a higher risk of developing hypertension, diabetes, coronary artery disease, elevated cholesterol level, insulin resistance. I discussed that it would be important to screen for these with fasting lipid level as well as two-hour glucose tolerance test. I also discussed that the hormonal imbalance causes her oligomenorrhea and that she was likely having anovulatory cycles. I discussed that the most important thing to do would be weight loss through exercise and diet. I recommend 30 minutes to one hour of exercise 5-6 times a week, low carbohydrate diet. I discussed that women who lost 10-15% of body fat automatically began ovulating and having regular menstrual periods. She refer she does not want to get . I discussed that the unopposed estrogen in patients with PCOS can cause endometrial hyperplasia/cancer. I discussed that it was important to induce regular periods. She agrees with this plan and as she currently does not plan to get we will use control pills to obtain regular periods as well as to prevent . In 6 months if she has lost sufficient weight, we will stop control pills and see if she cycles on her own. Post traumatic stress disorder (PTSD) Psychiatric care Severe obstructive sleep apnea-hypopnea syndrome Subcutaneous nodule of chest wall Viral syndrome Surgical History No history of previous surgery Family History Mother Breast cancer dx age Hypertension Grandmother Hypertension MATERNAL AND PATERNAL Diabetes MATERNAL Grandfather Hypertension MATERNAL AND PATERNAL Heart disease MATERNAL AND PATERNAL Family/Other No problems noted. Denies family history of Colon cancer Ovarian cancer Hyperlipidemia Uterine cancer Thyroid disease Stroke Female Reproductive History: Date of last menstrual period: 07/31/19 Para: 0 Spontaneous abortions: No Supplemental [facility] Information: Recently quit smoking Physical Exam Const: COMMON NORMALS: no acute distress, patient oriented x3, no limitations and well nourished GENERAL APPEARANCE: cooperative HENMT: COMMON NORMALS: normocephalic and atraumatic HEAD & SCALP: normocephalic and atraumatic FACE & SINUS: normal facial exam Eye: COMMON NORMALS: EOMs intact bilaterally Neck/C-Spine: COMMON NORMALS: full ROM, no lymphadenopathy, supple and no meningeal signs GENERAL: Yes normal visual inspection Lymph: LYMPHATIC: no lymphadenopathy noted Chest: COMMONS NORMALS: normal inspection of the chest and normal palpation of entire chest wall CHEST: No Ecchymosis present and No rash Resp: COMMON NORMALS: normal respiratory effort, No retractions and clear to auscultation bilaterally EFFORT & INSPECTION: No respiratory distress AUSCULTATION: clear to auscultation bilaterally Cardio: COMMON NORMALS: regular rate, regular rhythm and Peripheral pulses 2+ throughout JUGULAR VENOUS DISTENTION: no JVD RATE: regular rate RHYTHM: regular rhythm PERIPHERAL PULSES: Peripheral pulses 2+ throughout GI: COMMON NORMALS: Normal to inspection, nondistended, normoactive bowel sounds present OTHER: Morbid obesity. No pain in the abdomen with palpation. : COMMON NORMALS: Yes no CVA tenderness BLADDER/KIDNEY EXAM: Yes no CVA tenderness Back/Pelvis: COMMON NORMALS: no CVA tenderness Extremity: COMMON NORMALS: normal to inspection, full ROM and capillary refill normal Neuro: COMMON NORMALS: patient oriented x3, CN's II-XII intact bilaterally, no focal motor deficits and no sensory deficits noted MENINGEAL SIGNS: Yes no meningeal signs Psych: COMMON NORMALS: mental status grossly normal and Normal thought process present THOUGHT PROCESS: Normal thought process present Skin: COMMON NORMALS: no rashes or lesions noted and no wounds GENERAL SKIN EXAM: no rashes or lesions noted Course Vital Signs: Vital signs: Vital Signs Temperature 98.4 F 05/20/22 18:33 Pulse Rate 74 05/20/22 18:33 Respiratory Rate 16 05/20/22 18:33 Blood Pressure 176/112 05/20/22 18:33 Pulse Oximetry 95 05/20/22 18:33 Oxygen Delivery Me thod 05/20/22 18:33 MDM - OB/Uterine Contractions Medical Decision Making Dysfunctional uterine bleeding, cervicitis, versus threatened miscarriage. Lab Data Quant has increased from last visit. Blood type is O+. Patient does not require RhoGAM. Laboratory Results Ser , Semi-Qnt 47310.00 mIU/mL 05/20/22 19:20 Blood Type O Positive 05/20/22 19:20 Rho(D) Type Positive 05/20/22 19:20 Other Data Ordering Provider/Ordering MD: Minh Nicole MD Date of Service: 05/16/22 Procedure(s): US OB transvaginal 52505 Accession Number(s): [id number] Report Number: [id number] PROCEDURE INFORMATION: Exam: US First Trimester, Transabdominal and US , Transvaginal Exam date and time: 05/16/2022 4:48 PM Age: 37 years old Clinical indication: Pain; Other: Nausea vomiting x1 week; Gestational age or lmp: 7w3d; ; Additional info: Abd pain, n/v, unsure last lmp, pos preg test. Hcg 61333 LABS AND CLINICAL REPORTS: Last menstrual period start date: 03/18/2022 Gestational age (Established): 8 w 3 d Estimated due date (Established): 12/23/2022 TECHNIQUE: Imaging protocol: Real-time transabdominal obstetrical ultrasound of the maternal pelvis and a first trimester , less than 14 weeks 0 days, with image documentation. Transvaginal imaging was used for better evaluation of the fetus, adnexa, and/or cervix. COMPARISON: CT abdomen pelvis w con* [id number] 08/30/2021 9:10 PM FINDINGS: Gestation: Yolk sac measures 3.2 mm. Embryonic/ heart rate: 144 bpm Extra-embryonic membranes/Placenta: Unremarkable. No subchorionic bleed. Amniotic fluid: Amniotic fluid and extra-amniotic fluid is normal for gestational age. BIOMETRY: Gestational age (AUA): 7 w 3 d Mean sac diameter: 3.2 cm. EGA (MSD) is 7 w 5 d [place]-Rump length (CRL): 11.6 mm. EGA (CRL) is 7 w 3 d MATERNAL: Uterus: Intrauterine gestation. No uterine mass. Cervix: Cervical length measures 4.2 cm. Right ovary/adnexa: Right ovary measures 2.4 x 2.3 x 4.9 cm. Vascular flow to the right ovary is preserved. Left ovary/adnexa: Corpus luteum noted in the left ovary. Left ovary measures 2.2 x 3.1 x 4.8 cm. Vascular flow to the left ovary is preserved. Intraperitoneal space: Trace free fluid in the posterior cul-de-sac. US/US OB transvaginal [id number] IMPRESSION: Live intrauterine gestation. ? Dictated By: Oh Harris DO Signed By: Oh Harris DO Signed Date/Time: 05/16/22 1727 DD/ 1648 Discharge Plan Discharge Patient Disposition: Home Clinical Impression: Vaginal bleeding, First trimester Condition: Stable Prescriptions: No Action [id number] oil 400 mcg-35 mg -25 mg-5 mg tablet,chewable PO fluoxetine 40 mg capsule 80 mg PO QAM Qty: 60 1RF Rx Instructions: take two capsules by mouth every morning propranolol 20 mg tablet 20 mg PO BID PRN (Reason: anxiety) Qty: 60 1RF Rx Instructions: take one tablet by mouth morning and evening, if needed for anxiety doxylamine succinate 25 mg tablet 12.5 mg PO Q6H PRN (Reason: nausea and vomiting) Qty: 30 0RF Discharge Orders: Discharge ED (Routine); Ordered 05/20/22 Ordered By: Choco Mckeon Referrals: Selvin Conrad MD [Primary Care Provider] - (Follow-up early this coming week for evaluation of your . ) Patient Instructions: at 7 to 10 Weeks (ED) Activity Restrictions/Additional Instructions: Drink plenty fluids. Rest. Nothing in the vagina.Your blood type is O+. Your hormone level for your has increased which is good. 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 Coding Level of Care Code ED Nurse [employer] [facility] History Comprehensive Exam Comprehensive Medical Decision Making Moderate Complexity
[2022-05-20 21:26] VITALS: BP 158/92; PULSE 72; RESP 18; O2SAT 97
== END 2022-05-20 21:26 | disposition home or self-care (01) ==
PROVIDERS: Emergency Medicine; Emergency Provider Family Medicine; PCP Family Medicine Adult Medicine
DX: O46.91 Antepartum hemorrhage, unspecified, first trimester (principal); Z3A.01 Less than 8 weeks gestation of pregnancy
CPT/HCPCS: 36415; 84702; 86850; 86900; 99283

== ENCOUNTER → 2022-06-17 09:33 | Outpatient (BNVA) | payer BC, MEDICAID, SELFPAY | PROVIDERS: PCP Family Medicine Adult Medicine; Visit Provider Obstetrics & Gynecology | DX: O09.90 Supervision of high risk pregnancy, unspecified, unspecified trimester (principal); Z3A.00 Weeks of gestation of pregnancy not specified | CPT/HCPCS: 80307; 81000; 82950; 84443; 85027; 86592; 86762; 86787; 86803; 86850; 86900; 87086; 87340; 87491; 87591; 87624; 87661; 87806 ==

== ENCOUNTER → 2022-06-20 09:58 | Outpatient (BNVA) | payer OTHER, SELFPAY | PROVIDERS: PCP Family Medicine Adult Medicine; Visit Provider Nurse Practitioner Psychiatric/Mental Health | DX: F60.3 Borderline personality disorder (principal) | CPT/HCPCS: 80061; 83036 ==

== ENCOUNTER → 2022-07-07 09:18 | Outpatient (BNVA) | payer BC, MEDICAID, SELFPAY ==
[2022-07-04 11:18] VITALS: BP 142/89; BMI 44.7
== END ==
PROVIDERS: PCP Family Medicine Adult Medicine; Visit Provider Nurse Practitioner Women's Health
DX: O09.899 Supervision of other high risk pregnancies, unspecified trimester (principal); O09.519 Supervision of elderly primigravida, unspecified trimester; E66.01 Morbid (severe) obesity due to excess calories; F33.9 Major depressive disorder, recurrent, unspecified; G47.33 Obstructive sleep apnea (adult) (pediatric); E03.9 Hypothyroidism, unspecified; R87.619 Unspecified abnormal cytological findings in specimens from cervix uteri; Z3A.00 Weeks of gestation of pregnancy not specified
CPT/HCPCS: 81000; 81511

== ENCOUNTER → 2022-07-18 09:00 | Outpatient (BNVA) | payer BC, MEDICAID, SELFPAY ==
[2022-07-04 11:18] VITALS: BP 142/89; BMI 44.7
== END ==
PROVIDERS: PCP Family Medicine Adult Medicine; Visit Provider Obstetrics & Gynecology
DX: O09.899 Supervision of other high risk pregnancies, unspecified trimester (principal); Z3A.00 Weeks of gestation of pregnancy not specified
CPT/HCPCS: 84443

== ENCOUNTER → 2022-09-12 15:48 | Outpatient (BNVA) | payer BC, MEDICAID, SELFPAY ==
[2022-07-04 11:18] VITALS: BP 142/89; BMI 44.7
== END ==
PROVIDERS: PCP Family Medicine Adult Medicine; Visit Provider Obstetrics & Gynecology
DX: O09.899 Supervision of other high risk pregnancies, unspecified trimester (principal); Z3A.00 Weeks of gestation of pregnancy not specified
CPT/HCPCS: 84315; 87086

== ENCOUNTER 2022-09-24 15:04 | Emergency (ER) | payer BC, MEDICAID, SELFPAY ==
[2022-07-04 11:18] VITALS: BP 142/89; BMI 44.7
[2022-09-24 15:21] VITALS: BP 180/110; PULSE 95; TEMP 36.9; O2SAT 98; BMI 47.7
[2022-09-24 15:48] LABS: Basophils % 0.3 %; Eosinophils # 0.1 10^3/uL (0.0-0.8); Hematocrit 35.7 % (37.0-47.0); Hemoglobin 11.7 g/dL (11.5-15.3); Lymphocytes % 17.1 %; Mean Corpuscular HGB Conc 32.8 g/dL (30.0-36.0); Mean Corpuscular Hemoglobin 29.3 pg (28.0-34.0); Mean Corpuscular Volume 89.5 fl (81-99); Mean Platelet Volume 10.9 fL (7.4-10.4); Monocytes # 0.7 10^3/uL (0.2-0.9); Monocytes % 5.6 %; Neutrophils # 8.86 10^3/uL (1.8-7.7); Neutrophils % 75.2 %; Nucleated Red Blood Cells % 0 %; Platelet Count 249 10^3/cmm (130-400); Red Blood Count 3.99 10^6/uL (4.1-5.3); Red Cell Distribution Width 13.6 % (12.1-15.1); White Blood Count 11.8 10^3/uL (4.0-10.0)
[2022-09-24 16:03] LABS: INR 0.98 (0.8-1.2)
[2022-09-24 16:05] LABS: Partial Thromboplastin Time 27.6 SECONDS (23.9-36.7)
[2022-09-24 16:11] LABS: Alanine Aminotransferase 8 U/L (0-33); Albumin Level 3.3 g/dL (3.5-5.2); Alkaline Phosphatase 73 U/L (35-105); Aspartate Amino Transferase 12 U/L (0-32); Blood Urea Nitrogen 5 mg/dL (6-20); Calcium 8.8 mg/dL (8.5-10.5); Carbon Dioxide 19 mmol/L (22-29); Chloride 103 mmol/L (98-107); Globulin 3.7 g/dL (1.3-4.6); Glomerular Filtration Rate 179.6 mL/min (90-130); Glucose 132 mg/dL (65-115); Osmolality Calculated 279 mOsm/kg (285-295); Sodium 135 mmol/L (136-145); Total Bilirubin 0.2 mg/dL (0.15-1.2)
--- NOTE | 2022-09-24 18:24 | ED_ITS ---
HPI - Dizziness General: Chief Complaint: Dizziness Stated Complaint: nosebleed/ Time Seen by Provider: 09/24/22 18:03 History of Present Illness: HPI Narrative: Patient is a 37-year-old female who comes to the ED with nosebleeds and dizziness. Symptoms started today. Patient says she had 2 random episodes of nosebleeds that lasted for about 20 minutes. Denies any injury or trauma to cause symptoms. Today she also started having some dizziness. She describes it as room spinning type dizziness. Denies any head trauma or headaches. Denies a ny other neurological symptoms. She has had some nausea over the last 24 hours but denies any episodes of emesis. Patient states she feels a little decreased movement within the last couple hours, but no other OB concerns noted. Denies any fevers, chills, vaginal bleeding, dysuria, hematuria, vaginal discharge. Associated symptoms: Denies chest pain, chills, headache(s), nausea, nasal congestion, palpitations or vomiting Associated neuro symptoms: Deny numbness in extremities Review of Systems Const: Denies: fever(s), chills or fatigue Eyes: Denies: change in vision or eye discomfort ENMT: Reports: epistaxis; Denies: throat pain, odynophagia, nasal discharge or nasal congestion Card: Denies: chest pain, palpitations, edema, swelling of feet/ankles, dys pnea on exertion or orthopnea Resp: Denies: dyspnea, productive cough or non-productive cough GI: Denies: abdominal pain, nausea, vomiting, diarrhea, constipation or hematochezia : Denies: flank pain, dysuria or hematuria Musc: Denies: neck pain, back pain or extremity swelling Skin/Breast: Denies: rash or new lesions Neuro: Reports: dizziness; Denies: headache(s), numbness in extremities or weakness in extremities PFS ED PFSH: Medical History Bilateral knee pain Epidermoid cyst Ganglion cyst of dorsum of right wrist Infertility 04/15/2014-- Discussed that her inability to get was possibly because of an ovulation caused by PCO S.. given that her is 52 years old with medical problems like diabetes I would also recommend a [id number] evaluation to rule out male factor as a cause for her infertility. I would recommend him getting a sperm count as well. Discussed that I would recommend initial regulation of her period for about 6 months and then we can consider ovulation induction with Clomid. Offered her the option of seeing an infertility specialist which she declines at this point. We will reevaluate her infertility in 6 months. Insomnia disorder with non-sleep disorder mental comorbidity Morbid obesity with BMI of 45.0-49.9, adult Night terrors, adult PCOS (polycystic ovarian syndrome) 04/12/19--- Patient came with irregular bleeding-first, who has a history of oligomenorrhea. She refers she was told before that she might have PCOS. Pelvic ultrasound done showed normal uterus and multifolicular ovaries. Bilateral ovaries had several follicles. Discussed that her oligomenorrhea and excess vaginal bleeding when she gets her period as well as increased hair growth noticed on her face were sufficient to give her a diagnosis of PCOS. Discussed the ultrasound shows multifollicular ovaries were suspicious for PCOS. Discussed that since her TSH, prolactin, test was normal and her ultrasound showed no major abnormalities of her uterus and multifollicular ovaries that PCOS was the most likely cause of her irregular menses. I discussed that PCOS was a state of excessive estrogen and androgen levels. Discussed that women with PCOS are at a higher risk of developing hypertension, diabetes, coronary artery disease, elevated cholesterol level, insulin resistance. I discussed that it would be important to screen for these with fasting lipid level as well as two-hour glucose tolerance test. I also discussed that the hormonal imbalance causes her oligomenorrhea and that she was likely having anovulatory cycles. I discussed that the most important thing to do would be weight loss through exercise and diet. I recommend 30 minutes to one hour of exercise 5-6 times a week, low carbohydrate diet. I discussed that women who lost 10-15% of body fat automatically began ovulating and having regular menstrual periods. She refer she does not want to get . I discussed that the unopposed estrogen in patients with PCOS can cause endometrial hyperplasia/cancer. I discussed that it was important to induce regular periods. She agrees with this plan and as she currently does not plan to get we will use control pills to obtain regular periods as well as to prevent . In 6 months if she has lost sufficient weight, we will stop control pills and see if she cycles on her own. Pharyngitis Post traumatic stress disorder (PTSD) Psychiatric care Severe obstructive sleep apnea-hypopnea syndrome Subcutaneous nodule of chest wall Surgical History No history of previous surgery Family History Mother Breast cancer dx age Hypertension Grandmother Hypertension MATERNAL AND PATERNAL Diabetes MATERNAL Grandfather Hypertension MATERNAL AND PATERNAL Heart disease MATERNAL AND PATERNAL Family/Other No problems noted. Other Borderline personality disorder Denies family history of Colon cancer Ovarian cancer Hyperlipidemia Uterine cancer Thyroid disease Stroke Social History Current occupation: working on disability Female Reproductive History: Para: 0 Spontaneous abortions: No Physical Exam Const: COMMON NORMALS: no acute distress, patient oriented x3 and alert HENMT: COMMON NORMALS: normocephalic and Normal external nose present HEAD & SCALP: normocephalic NOSE: Normal external nose present, Normal septum present and Epistaxis present (Dried blood present. no active bleeding) on the right anterior source MOUTH: Normal oral and palatal mucosa present THROAT: posterior oropharynx normal and uvula midline Neck/C-Spine: COMMON NORMALS: supple GENERAL: Yes normal visual inspection Resp: COMMON NORMALS: normal respiratory effort, No retractions, No use of accessory muscles and clear to auscultation bilaterally AUSCULTATION: clear to auscultation bilaterally Cardio: COMMON NORMALS: regular rate, regular rhythm, S1 normal heart sound present, S2 normal heart sound present, No gallops present (Cardio), No clicks present (Cardio), No murmurs present (Cardio) and Peripheral pulses 2+ throughout RATE: regular rate RHYTHM: regular rhythm HEART SOUNDS: S1 normal heart sound present and S2 normal heart sound present PERIPHERAL PULSES: Peripheral pulses 2+ throughout GI: COMMON NORMALS: Normal to inspection, nondistended, normoactive bowel sounds present, Soft to palpation, non-tender and no masses PALPATION: Yes Soft to palpation : COMMON NORMALS: Yes no CVA tenderness BLADDER/KIDNEY EXAM: Yes no CVA tenderness Back/Pelvis: COMMON NORMALS: no CVA tenderness Extremity: COMMON NORMALS: normal to inspection Neuro: COMMON NORMALS: patient oriented x3 SENSORIUM/ORIENTATION: Yes alert GAIT: Yes Normal gait present Skin: GENERAL SKIN EXAM: dry skin Course ED course: Dr. Barba performed bedside ultrasound. Baby has a heart rate of around 150 bpm and was witnessed having multiple movements during ultrasound exam. Baby's head measured at 27 weeks and 4 days. Vital Signs: Vital signs: Vital Signs Temperature 98.4 F 09/24/22 15:21 Pulse Rate 87 09/24/22 18:29 Respiratory Rate 14 09/24/22 18:29 Blood Pressure 180/110 09/24/22 15:21 Pulse Oximetry 99 09/24/22 18:29 Oxygen Delivery Me thod Room Air 09/24/22 18:29 MDM - Dizziness Medical Decision Making Patient is a 37-year-old female who comes to the ED with nosebleeds and dizziness. Symptoms started today. Patient says she had 2 random episodes of nosebleeds that lasted for about 20 minutes. Denies any injury or trauma to cause symptoms. Today she also started having some dizziness. She describes it as room spinning type dizziness. Denies any head trauma or headaches. Denies any other neurological symptoms. She has had some nausea over the last 24 hours but denies any episodes of emesis. Patient states she feels a little decreased movement within the last couple hours, but no other OB concerns noted. Denies any fevers, chills, vaginal bleeding, dysuria, hematuria, vaginal discharge. Vitals are stable. Patient had a blood pressure of 136/84. Patient appears nontoxic in no acute distress or pain. She has dried blood present in right nare with no active bleeding noted. Rest of exam is benign. Labs are all unremarkable. Dr. Barba performed bedside ultrasound. Baby has a heart rate of around 150 bpm and was witnessed having multiple movements during ultrasound exam. Baby's head measured at 27 weeks and 4 days. Patient was given dose of meclizine to help with dizziness and stable for discharge home. Diagnosed with dizziness and epistaxis. Told to follow-up with PCP in the next week for reevaluation. Return ED precautions given. Patient understood and agreed with plan. Lab Data I reviewed the patient's lab results. 09/24/22 15:38 09/24/22 15:38 Laboratory Results WBC 11.8 10^3/uL (4.0-10.0) H 09/24/22 15:38 RBC 3.99 10^6/uL (4.1-5.3) L 09/24/22 15:38 Hgb 11.7 g/dL (11.5-15.3) 09/24/22 15: Hct 35.7 % (37.0-47.0) L 09/24/22 15: MCV 89.5 fl (81-99) 09/24/22 15: MCH 29.3 pg (28.0-34.0) 09/24/22 15: MCHC 32.8 g/dL (30.0-36.0) 09/24/22: RDW 13.6 % (12.1-15.1) 09/24/22 15: Plt Count 249 10^3/cmm (130-400) 09/24/22: MPV 10.9 fL (7.4-10.4) H 09/24/22 15: Neut % (Auto) 75.2 % 09/24/22: Lymph % (Auto) 17.1 % 09/24/22: [place] % (Auto) 5.6 % 09/24/22: Eos % (Auto) 1.0 % 09/24/22: Baso % (Auto) 0.3 % 09/24/22: Neut # (Auto) 8.86 10^3/uL (1.8-7.7) H 09/24/22: Lymph # (Auto) 2.0 10^3/uL (0.8-4.8) 09/24/22 15: [place] # (Auto) 0.7 10^3/uL (0.2-0.9) 09/24/22: Eos # (Auto) 0.1 10^3/uL (0.0-0.8) 09/24/22: Baso # (Auto) 0.0 10^3/uL (0.0-0.1) 09/24/22: Nucleated RBC % (auto) 0 % 09/24/22 Nucleated RBCs # 0.0 /100WBC 09/24/22 15: PT 13.30 SECONDS (12.1-14.9) 09/24/22 15: INR 0.98 (0.8-1.2) 09/24/22 15: APTT 27.6 SECONDS (23.9-36.7) 09/24/22 15:38 Sodium 135 mmol/L (136-145) L 09/24/22 15:38 Potassium 4.0 mmol/L (3.5-5.1) 09/24/22 15:38 Chloride 103 mmol/L (98-107) 09/24/22 15:38 Carbon Dioxide 19 mmol/L (22-29) L 09/24/22 15:38 Anion Gap 17.0 (5-19) 09/24/22 15:38 BUN 5 mg/dL (6-20) L 09/24/22 15:38 Creatinine 0.4 mg/dL (0.5-0.9) L 09/24/22 15:38 GFR Calculation 179.6 mL/min (90-130) H 09/24/22 15:38 Glucose 132 mg/dL (65-115) H 09/24/22 15:38 Calculated Osmolality 279 mOsm/kg (285-295) L 09/24/22 15:38 Calcium 8.8 mg/dL (8.5-10.5) 09/24/22 15:38 Total Bilirubin 0.2 mg/dL (0.15-1.2) 09/24/22 15:38 AST 12 U/L (0-32) 09/24/22 15:38 ALT 8 U/L (0-33) 09/24/22 15:38 Alkaline Phosphatase 73 U/L (35-105) 09/24/22 15:38 Total Protein 7.0 g/dL (6.6-8.7) 09/24/22 15:38 Albumin 3.3 g/dL (3.5-5.2) L 09/24/22 15:38 Globulin 3.7 g/dL (1.3-4.6) 09/24/22 15:38 Discharge Plan Discharge Patient Disposition: Home Clinical Impression: Anterior epistaxis, Dizziness Condition: Stable Prescriptions: New meclizine 25 mg tablet 25 mg PO TID PRN (Reason: dizziness) Qty: 20 0RF No Action levothyroxine 50 mcg capsule 50 mcg PO DAILY Qty: 90 5RF aspirin [Adult Aspirin Regimen] 81 mg tablet,delayed release (DR/EC) 81 mg PO DAILY propranolol 20 mg tablet 20 mg PO BID PRN (Reason: anxiety) Qty: 60 1RF Rx Instructions: take one tablet by mouth morning and evening, if needed for anxiety loratadine 10 mg tablet 10 mg PO DAILY Qty: 30 0RF Discharge Orders: Discharge ED (Routine); Ordered 09/24/22 Ordered By: Denny Palacios Referrals: Selvin Conrad MD [Primary Care Provider] - Discharge Diet: Regular Discharge Activity: Increase activity as tolerated Patient Instructions: Epistaxis - Adult Activity Restrictions/Additional Instructions: Follow-up with medical provider as directed in the next 5 to 7 days for reevaluation. Return to the ER or your medical provider if condition worsens. Please read and understand discharge instructions. Thank you for choosing [facility] for your healthcare needs today. Please realize this is an emergency room and that we are providing you with a medical screening exam and this may not be complete and all inclusive of all the testing and or work up that you may need to determine your ailment or severity of your illness. It is very important that you follow up as instructed or that you return to the Emergency Department should you have concerns or if your condition changes or worsens in any way. Coding Level of Care Code ED Account Maintenance Representative for Rai Domingo
[2022-09-24 18:29] VITALS: PULSE 87; RESP 14; O2SAT 99
[2022-09-24] MEDS: meclizine 25 mg tablet 50 MG PO (19:33)
== END 2022-09-24 19:49 | disposition home or self-care (01) ==
PROVIDERS: Emergency Medicine; Emergency Provider Physician Assistant; PCP Family Medicine Adult Medicine
DX: O26.892 Other specified pregnancy related conditions, second trimester (principal); R04.0 Epistaxis; R42 Dizziness and giddiness; Z79.82 Long term (current) use of aspirin; Z3A.27 27 weeks gestation of pregnancy
CPT/HCPCS: 36415; 80053; 85025; 85610; 85730; 99283; J8597

== ENCOUNTER → 2022-10-10 08:54 | Outpatient (BNVA) | payer BC, MEDICAID, SELFPAY ==
[2022-07-04 11:18] VITALS: BP 142/89; BMI 44.7
== END ==
PROVIDERS: PCP Family Medicine Adult Medicine; Visit Provider Obstetrics & Gynecology
DX: Z34.90 Encounter for supervision of normal pregnancy, unspecified, unspecified trimester (principal)
CPT/HCPCS: 81000; 82950; 85025

== ENCOUNTER 2022-10-14 08:15 | Outpatient (CLI) | payer BC, MEDICAID, SELFPAY ==
[2022-07-04 11:18] VITALS: BP 142/89; BMI 44.7
[2022-10-14 08:37] LABS: Basophils % 0.3 %; Eosinophils # 0.1 10^3/uL (0.0-0.8); Eosinophils % 0.9 %; Hematocrit 37.8 % (37.0-47.0); Hemoglobin 12.2 g/dL (11.5-15.3); Lymphocytes # 1.8 10^3/uL (0.8-4.8); Lymphocytes % 15.1 %; Mean Corpuscular HGB Conc 32.3 g/dL (30.0-36.0); Mean Corpuscular Hemoglobin 29.8 pg (28.0-34.0); Mean Corpuscular Volume 92.4 fl (81-99); Mean Platelet Volume 10.7 fL (7.4-10.4); Monocytes # 0.7 10^3/uL (0.2-0.9); Monocytes % 6.1 %; Neutrophils # 9.29 10^3/uL (1.8-7.7); Neutrophils % 76.4 %; Nucleated Red Blood Cells % 0 %; Platelet Count 258 10^3/cmm (130-400); Red Blood Count 4.09 10^6/uL (4.1-5.3); Red Cell Distribution Width 13.9 % (12.1-15.1); White Blood Count 12.2 10^3/uL (4.0-10.0)
[2022-10-14 08:56] LABS: Glucose Fasting Gestational 89 mg/dL (65-115)
[2022-10-14 10:19] LABS: Glucose 1 Hour 153 mg/dL
[2022-10-14 11:50] LABS: Glucose 2 Hour 133 mg/dL
[2022-10-14 12:42] LABS: Glucose 3 Hour 113 mg/dL
== END 2022-10-14 08:16 | disposition home or self-care (01) ==
PROVIDERS: PCP Family Medicine Adult Medicine; Visit Provider Obstetrics & Gynecology
DX: O09.899 Supervision of other high risk pregnancies, unspecified trimester (principal); Z3A.00 Weeks of gestation of pregnancy not specified
CPT/HCPCS: 36415; 82951; 82952; 85025

== ENCOUNTER → 2022-10-26 11:18 | Outpatient (BNVA) | payer BC, SELFPAY ==
[2022-07-04 11:18] VITALS: BP 142/89; BMI 44.7
== END ==
PROVIDERS: PCP Family Medicine Adult Medicine; Visit Provider Obstetrics & Gynecology
DX: O09.899 Supervision of other high risk pregnancies, unspecified trimester (principal); R82.90 Unspecified abnormal findings in urine
CPT/HCPCS: 81000; 87086

== ENCOUNTER 2022-11-09 11:45 | Outpatient (CLI) | payer BC, MEDICAID, SELFPAY ==
[2022-07-04 11:18] VITALS: BP 142/89; BMI 44.7
[2022-11-09] VITALS (28 sets, daily range): BP systolic 143–182; BP diastolic 81–101; PULSE 65–85; RESP 18; BMI 48.7
[2022-11-09 12:18] LABS: Basophils % 0.1 %; Eosinophils # 0.1 10^3/uL (0.0-0.8); Eosinophils % 1.5 %; Hematocrit 33.2 % (37.0-47.0); Hemoglobin 10.8 g/dL (11.5-15.3); Lymphocytes # 1.4 10^3/uL (0.8-4.8); Lymphocytes % 21.3 %; Mean Corpuscular HGB Conc 32.5 g/dL (30.0-36.0); Mean Corpuscular Hemoglobin 28.6 pg (28.0-34.0); Mean Corpuscular Volume 88.1 fl (81-99); Mean Platelet Volume 11.3 fL (7.4-10.4); Monocytes # 0.6 10^3/uL (0.2-0.9); Monocytes % 8.9 %; Neutrophils # 4.54 10^3/uL (1.8-7.7); Neutrophils % 67.8 %; Nucleated Red Blood Cells % 0 %; Platelet Count 201 10^3/cmm (130-400); Red Blood Count 3.77 10^6/uL (4.1-5.3); White Blood Count 6.7 10^3/uL (4.0-10.0)
[2022-11-09 12:40] LABS: Alanine Aminotransferase 11 U/L (0-33); Albumin Level 3.4 g/dL (3.5-5.2); Alkaline Phosphatase 99 U/L (35-105); Anion Gap 13.6 (5-19); Aspartate Amino Transferase 10 U/L (0-32); Blood Urea Nitrogen 5 mg/dL (6-20); Calcium 8.3 mg/dL (8.5-10.5); Carbon Dioxide 20 mmol/L (22-29); Chloride 109 mmol/L (98-107); Glomerular Filtration Rate 179.6 mL/min (90-130); Glucose 102 mg/dL (65-115); Osmolality Calculated 285 mOsm/kg (285-295); Potassium 3.6 mmol/L (3.5-5.1); Sodium 139 mmol/L (136-145); Total Bilirubin 0.2 mg/dL (0.15-1.2); Total Protein 6.4 g/dL (6.6-8.7); Uric Acid 4.6 mg/dL (2.4-5.7)
[2022-11-09 12:59] LABS: Add Urine Microscopic? YES; Bacteria Urine TRACE /hpf; Bilirubin Urine Neg (Negative); Blood Urine 2+ (Negative); Glucose Urine UA Norm (Normal); Ketones Urine Negative (Negative); Leukocyte Esterase Urine Negative (Negative); Nitrate Urine Negative (Negative); Protein Urine Neg (Negative); Urine Appearance Cloudy (CLEAR); Urine Color Dark Yellow (Yellow); Urobilinogen Urine 4 mg/dL (Negative); WBC Urine 0-4 /hpf (0-5); pH Urine 6.5 (5-7)
[2022-11-09 13:00] LABS: Mucus Urine 2+ /hpf
[2022-11-09 13:10] LABS: Urine Creatinine 270 mg/dL (28-217)
[2022-11-09 13:18] LABS: UPRO/UCREAT Ratio 0.13 mg/mg CR; Urine Protein Random 35 mg/dL
[2022-11-09] MEDS: betamethasone susp 6 mg/mL 5 mL 12 MG IM (13:58)
[2022-11-09] MEDS: NIFEdipine ER (24 hr) 30 mg Tablet PO (15:03)
--- NOTE | 2022-11-09 17:18 | PM.OPHPUD ---
Labor & Delivery H&P Update Date of Procedure: November 09, 2022 Date H&P Performed: 11/09/22 H&P update information: I have reviewed H&P completed within last 30 days, I have examined patient prior to procedure and Changes to prior documentation as noted here Changes to previous documentation: The patient was sent to labor and delivery for evaluation of preeclampsia. Her labs were normal, but she had increasingly higher blood pressures. She was given a dose of propranolol, that she normally takes and her blood pressures elevated further. She was given a dose of 30 mg of procardia, with no change in blood pressure. They remain in the severe range 150-160's /90-100's. A few blood pressures were 170-180/90's. Admission Diagnosis: iup@ 32w4d, morbid obesity, AMA, hypothyroidism, LUPE, psychiatric dx. Primary indication for procedure: The patient has been determined to have severe preeclampsia based on blood pressure alone. We are not able to care for babies that are only 32 weeks gestation Planned procedure: Transfer to [facility] in [place] for tertiary care for mom and baby. Other information: The mother has received her first dose of betamethasone today
--- NOTE | 2022-11-09 17:28 | P.DS_ITS ---
Discharge Providers Date of Admission: 11/09/22 Date of Discharge: November 09, 2022 Attending Provider at Admission: Dr. delgado Attending Provider at Discharge: Jennifer Delgado MD Primary Care Provider: Selvin Conrad MD Reason for Visit Reason for Visit: elevated blood pressure Hospital Course Hospital Course The patient presented from clinic for slightly elevated blood pressure. She had normal preeclampsia work up on labs, but her blood pressures were in the severe range. She was given a dose of procardia here to determine if this was gestat ional hypertension, but she continued to have elevated pressures. She was given a dose of steroids. She was transferred to [facility] in [place] for tertiary care. Discharge Data Studies Completed and Pending Laboratory Results WBC 6.7 10^3/uL (4.0-10.0) 11/09/22 12:05 RBC 3.77 10^6/uL (4.1-5.3) L 11/09/22 12:05 Hgb 10.8 g/dL (11.5-15.3) L 11/09/22 12:05 Hct 33.2 % (37.0-47.0) L 11/09/22 12:05 MCV 88.1 fl (81-99) 11/09/22 12:05 MCH 28.6 pg (28.0-34.0) 11/09/22 12:05 MCHC 32.5 g/dL (30.0-36.0) 11/09/22 12:05 RDW 14.0 % (12.1-15.1) 11/09/22 12:05 Plt Count 201 10^3/cmm (130-400) 11/09/22 12:05 MPV 11.3 fL (7.4-10.4) H 11/09/22 12:05 Neut % (Auto) 67.8 % 11/09/22 12:05 Lymph % (Auto) 21.3 % 11/09/22 12:05 [place] % (Auto) 8.9 % 11/09/22 12:05 Eos % (Auto) 1.5 % 11/09/22 12:05 Baso % (Auto) 0.1 % 11/09/22 12:05 Neut # (Auto) 4.54 10^3/uL (1.8-7.7) 11/09/22 12:05 Lymph # (Auto) 1.4 10^3/uL (0.8-4.8) 11/09/22 12:05 [place] # (Auto) 0.6 10^3/uL (0.2-0.9) 11/09/22 12:05 Eos # (Auto) 0.1 10^3/uL (0.0-0.8) 11/09/22 12:05 Baso # (Auto) 0.0 10^3/uL (0.0-0.1) 11/09/22 12:05 Nucleated RBC % (auto) 0 % 11/09/22 12:05 Nucleated RBCs # 0.0 /100WBC 11/09/22 12:05 Sodium 139 mmol/L (136-145) 11/09/22 12:05 Potassium 3.6 mmol/L (3.5-5.1) 11/09/22 12:05 Chloride 109 mmol/L (98-107) H 11/09/22 12:05 Carbon Dioxide 20 mmol/L (22-29) L 11/09/22 12:05 Anion Gap 13.6 (5-19) 11/09/22 12:05 BUN 5 mg/dL (6-20) L 11/09/22 12:05 Creatinine 0.4 mg/dL (0.5-0.9) L 11/09/22 12:05 GFR Calculation 179.6 mL/min (90-130) H 11/09/22 12:05 Glucose 102 mg/dL (65-115) 11/09/22 12:05 Calculated Osmolality 285 mOsm/kg (285-295) 11/09/22 12:05 Uric Acid 4.6 mg/dL (2.4-5.7) 11/09/22 12:05 Calcium 8.3 mg/dL (8.5-10.5) L 11/09/22 12:05 Total Bilirubin 0.2 mg/dL (0.15-1.2) 11/09/22 12:05 AST 10 U/L (0-32) 11/09/22 12:05 ALT 11 U/L (0-33) 11/09/22 12:05 Alkaline Phosphatase 99 U/L (35-105) 11/09/22 12:05 Total Protein 6.4 g/dL (6.6-8.7) L 11/09/22 12:05 Albumin 3.4 g/dL (3.5-5.2) L 11/09/22 12:05 Globulin 3.0 g/dL (1.3-4.6) 11/09/22 12:05 Urine Color Dark yellow (Yellow) 11/09/22 12:30 Urine Appearance Cloudy (CLEAR) A 11/09/22 12:30 Urine pH 6.5 (5-7) 11/09/22 12:30 Ur Specific [place] 1.020 (1.005-1.030) 11/09/22 12:30 Urine Protein Neg (Negative) 11/09/22 12:30 Urine Glucose (UA) Norm (Normal) 11/09/22 12:30 Urine Ketones Negative (Negative) 11/09/22 12:30 Urine Blood 2+ (Negative) H 11/09/22 12:30 Urine Nitrate Negative (Negative) 11/09/22 12:30 Urine Bilirubin Neg (Negative) 11/09/22 12:30 Urine Urobilinogen 4 mg/dL (Negative) H 11/09/22 12:30 Ur Leukocyte Esterase Negative (Negative) 11/09/22 12:30 Urine RBC 5-10 /hpf (0-2) H 11/09/22 12:30 Urine WBC 0-4 /hpf (0-5) H 11/09/22 12:30 Ur Squamous Epith Cells 10-15 /hpf (0-5) H 11/09/22 12:30 Amorphous Sediment Not Reportable 11/09/22 12:30 Urine Bacteria Trace /hpf (NONE) 11/09/22 12:30 Urine Mucus 2+ /hpf 11/09/22 12:30 U Random Total Protein 35 mg/dL 11/09/22 12:30 Urine Creatinine 270 mg/dL (28-217) H 11/09/22 12:30 Protein/Creatinin Ratio 0.13 mg/mg CR 11/09/22 12:30 Vitals Last Vital Signs Pulse 82 11/09/22 17:07 Resp 18 11/09/22 11:52 BP 167/81 11/09/22 17:07 Discharge Plan Discharge Patient Disposition: Home Prescriptions: No Action fluoxetine 20 mg capsule 20 mg PO .q am Qty: 30 1RF Rx Instructions: Take 1 capsule by mouth every morning levothyroxine 50 mcg capsule 50 mcg PO DAILY Qty: 90 5RF aspirin [Adult Aspirin Regimen] 81 mg tablet,delayed release (DR/EC) 81 mg PO DAILY propranolol 20 mg tablet 20 mg PO BID PRN (Reason: anxiety) Qty: 60 1RF Rx Instructions: take one tablet by mouth morning and evening, if needed for anxiety loratadine 10 mg tablet 10 mg PO DAILY Qty: 30 0RF meclizine 25 mg tablet 25 mg PO TID PRN (Reason: dizziness) Qty: 20 0RF Discharge Attestations Time Spent in Discharge Care*: less than 30 min Quality Metrics Clinical Quality Measures [ No reported AMI, CVA or VTE this stay] Coding Level of Care Code Acute Code for Chg Fwd Diagnoses
== END 2022-11-09 18:39 | disposition home or self-care (01) ==
LOC: OPOB 11:50 → OBGYN 11:51
PROVIDERS: PCP Family Medicine Adult Medicine; Visit Provider Obstetrics & Gynecology
DX: O16.9 Unspecified maternal hypertension, unspecified trimester (principal); Z3A.00 Weeks of gestation of pregnancy not specified
CPT/HCPCS: 36415; 59025; 80053; 81000; 81001; 82570; 84156; 84550; 85025; 87086; 96372; 99211; J0702

== ENCOUNTER 2023-02-08 20:39 | Emergency (ER) | payer BC, MEDICAID, SELFPAY ==
[2022-07-04 11:18] VITALS: BP 142/89; BMI 44.7
[2023-02-08 20:41] VITALS: BP 149/93; PULSE 69; RESP 22; TEMP 36.7; O2SAT 100; BMI 44.7
--- NOTE | 2023-02-08 20:45 | XRR_ITS ---
PROCEDURE INFORMATION: Exam: XR Chest Exam date and time: 02/08/2023 9:04 PM Age: 37 years old Clinical indication: Pain; Chest pressure; Additional info: Cp TECHNIQUE: Imaging protocol: Radiologic exam of the chest. Views: 1 view. COMPARISON: CT abdomen pelvis w con* [id number] 08/30/2021 9:10 PM FINDINGS: Lungs: Unremarkable. No consolidation. Pleural spaces: Unremarkable. No pleural effusion. No pneumothorax. Heart/Mediastinum: Unremarkable. No cardiomegaly. Bones/joints: Unremarkable. Intraperitoneal space: There is no free intraperitoneal air. XR/XR chest 1V portable [id number] IMPRESSION: No acute cardiopulmonary disease.
--- NOTE | 2023-02-08 20:45 | ECG_ITS ---
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 Measurements Intervals [place] Rate: 71 P: 44 [place]: 163 QRS: 56 QRSD: 97 T: 58 QT: 400 QTc: 436 Interpretive Statements SINUS RHYTHM No previous ECG available for comparison Electronically Signed On 02-09-2023 6:49:48 CDT by Jaxson Garcia M.D. [id number]
[2023-02-08 21:44] LABS: Basophils # 0.1 10^3/uL (0.0-0.1); Basophils % 0.4 %; Eosinophils # 0.2 10^3/uL (0.0-0.8); Eosinophils % 1.6 %; Hematocrit 39.7 % (36-47); Lymphocytes # 3.8 10^3/uL (0.8-4.8); Lymphocytes % 32.4 %; Mean Corpuscular HGB Conc 31.7 g/dL (30-55); Mean Corpuscular Hemoglobin 27.5 pg (27-33); Mean Corpuscular Volume 86.7 fl (85-98); Mean Platelet Volume 10.7 fL (7.4-10.4); Monocytes # 0.7 10^3/uL (0.2-0.9); Neutrophils # 6.88 10^3/uL (1.8-7.7); Neutrophils % 59.3 %; Nucleated Red Blood Cells % 0 %; Platelet Count 337 10^3/cmm (157-399); Red Blood Count 4.58 10^6/uL (3.85-5.65); Red Cell Distribution Width 13.8 % (12.1-15.1); White Blood Count 11.59 10^3/uL (3.29-11.43)
[2023-02-08 22:02] LABS: Troponin(5th) Baseline 6 ng/L (0-10)
[2023-02-08 22:04] LABS: Alanine Aminotransferase 12 U/L (0-33); Albumin Level 4.1 g/dL (3.5-5.2); Alkaline Phosphatase 117 U/L (35-105); Anion Gap 13.9 (5-19); Aspartate Amino Transferase 10 U/L (0-32); Blood Urea Nitrogen 14 mg/dL (6-20); Calcium 8.9 mg/dL (8.5-10.5); Carbon Dioxide 25 mmol/L (22-29); Chloride 104 mmol/L (98-107); Globulin 2.8 g/dL (1.3-4.6); Glomerular Filtration Rate 138.8 mL/min (90-130); Glucose 101 mg/dL (65-115); Lipase 19 U/L (13-60); Osmolality Calculated 289 mOsm/kg (285-295); Potassium 3.9 mmol/L (3.5-5.1); Sodium 139 mmol/L (136-145); Total Bilirubin 0.2 mg/dL (0.15-1.2); Total Protein 6.9 g/dL (6.6-8.7)
--- NOTE | 2023-02-08 22:32 | ED_ITS ---
HPI - Chest Pain General: Chief Complaint: Chest Pain Stated Complaint: panic attack, chest tightness Time Seen by Provider: 02/08/23 21:36 Source: patient Mode of arrival: ambulatory Limitations: no limitations History of Present Illness: 37-year-old female states she been having anxiety throughout the day. States she felt extremely anxious this evening at 6 PM started having some shortness of breath along with chest pain folic she can check catch her breath. States she has since calmed down her symptoms resolved she denies any fever denies any cough denies any vomiting or diarrhea Associated symptoms: Deny abdominal pain, dyspnea, fever(s), nausea or vomiting Review of Systems Const: Denies: fever(s) or chills ENMT: Denies: throat pain or dental pain Card: Reports: chest pain Resp: Denies: dyspnea GI: Denies: abdominal pain, nausea, vomiting or diarrhea : Denies: dysuria Musc: Denies: neck pain or back pain Skin/Breast: Denies: rash Neuro: Denies: headache(s) Psych: Reports: anxiety PFSH ED PFSH: Medical History Bilateral knee pain Epidermoid cyst Ganglion cyst of dorsum of right wrist Infertility 04/15/2014-- Discussed that her inability to get was possibly because of an ovulation caused by PCO S.. given that her is 52 years old with medical problems like diabetes I would also recommend a [id number] evaluation to rule out male factor as a cause for her infertility. I would recommend him getting a sperm count as well. Discussed that I would recommend initial regulation of her period for about 6 months and then we can consider ovulation induction with Clomid. Offered her the option of seeing an infertility specialist which she declines at this point. We will reevaluate her infertility in 6 months. Insomnia disorder with non-sleep disorder mental comorbidity Morbid obesity with BMI of 45.0-49.9, adult Night terrors, adult PCOS (polycystic ovarian syndrome) 04/12/19--- Patient came with irregular bleeding-first, who has a history of oligomenorrhea. She refers she was told before that she might have PCOS. Pelvic ultrasound done showed normal uterus and multifolicular ovaries. Bilateral ovaries had several follicles. Discussed that her oligomenorrhea and excess vaginal bleeding when she gets her period as well as increased hair growth noticed on her face were sufficient to give her a diagnosis of PCOS. Discussed the ultrasound shows multifollicular ovaries were suspicious for PCOS. Discussed that since her TSH, prolactin, test was normal and her ultrasound showed no major abnormalities of her uterus and multifollicular ovaries that PCOS was the most likely cause of her irregular menses. I discussed that PCOS was a state of excessive estrogen and androgen levels. Discussed that women with PCOS are at a higher risk of developing hypertension, diabetes, coronary artery disease, elevated cholesterol level, insulin resistance. I discussed that it would be important to screen for these with fasting lipid level as well as two-hour glucose tolerance test. I also discussed that the hormonal imbalance causes her oligomenorrhea and that she was likely having anovulatory cycles. I discussed that the most important thing to do would be weight loss through exercise and diet. I recommend 30 minutes to one hour of exercise 5-6 times a week, low carbohydrate diet. I discussed that women who lost 10-15% of body fat automatically began ovulating and having regular menstrual periods. She refer she does not want to get . I discussed that the unopposed estrogen in patients with PCOS can cause endometrial hyperplasia/cancer. I discussed that it was important to induce regular periods. She agrees with this plan and as she currently does not plan to get we will use bi rth control pills to obtain regular periods as well as to prevent . In 6 months if she has lost sufficient weight, we will stop control pills and see if she cycles on her own. Post traumatic stress disorder (PTSD) Psychiatric care Severe obstructive sleep apnea-hypopnea syndrome Subcutaneous nodule of chest wall Tinea corporis Surgical History No history of previous surgery Family History Mother Breast cancer dx age Hypertension Grandmother Hypertension MATERNAL AND PATERNAL Diabetes MATERNAL Grandfather Hypertension MATERNAL AND PATERNAL Heart disease MATERNAL AND PATERNAL Family/Other No problems noted. Other Borderline personality disorder Denies family history of Colon cancer Ovarian cancer Hyperlipidemia Uterine cancer Thyroid disease Stroke Social History Substance/Drug Use: current Substance/Drug use frequency: daily Other substance/drug use details: last use 03.06.22 Current occupation: working on disability Do you think of yourself as: Straight/Heterosexual Female Reproductive History: Para: 0 Spontaneous abortions: No Physical Exam Const: COMMON NORMALS: no acute distress, patient oriented x3 and healthy appearing HENMT: COMMON NORMALS: normocephalic and atraumatic HEAD & SCALP: normocephalic and atraumatic Eye: COMMON NORMALS: Equal, round and reactive pupils present and EOMs intact bilaterally PUPIL: Yes Equal, round and reactive pupils present Neck/C-Spine: COMMON NORMALS: full ROM and supple Chest: COMMONS NORMALS: normal inspection of the chest and normal palpation of entire chest wall Resp: COMMON NORMALS: normal respiratory effort, No retractions, No use of accessory muscles and clear to auscultation bilaterally AUSCULTATION: clear to auscultation bilaterally Cardio: COMMON NORMALS: regular rate, regular rhythm and No murmurs present (Cardio) RATE: regular rate RHYTHM: regular rhythm GI: COMMON NORMALS: Normal to inspection, nondistended, normoactive bowel sounds present, Soft to palpation, non-tender and no masses PALPATION: Yes Soft to palpation Extremity: COMMON NORMALS: normal to inspection and full ROM Neuro: COMMON NORMALS: patient oriented x3, moves all extremities and no focal motor deficits Psych: COMMON NORMALS: mental status grossly normal, Normal thought process present and cooperative THOUGHT PROCESS: Normal thought process present Skin: COMMON NORMALS: no rashes or lesions noted and no wounds GENERAL SKIN EXAM: no rashes or lesions noted Course Vital Signs: Vital signs: Vital Signs Temperature 98.1 F 02/08/23 20:41 Pulse Rate 69 02/08/23 20:41 Respiratory Rate 22 H 02/08/23 20:41 Blood Pressure 149/93 02/08/23 20:41 Pulse Oximetry 100 02/08/23 20:41 Oxygen Delivery Me thod Room Air 02/08/23 20:41 MDM - Chest Pain Medical Decision Making Patient presents for chest pain atypical in nature likely from anxiety her troponins here are normal she has no signs of dissection or pulm embolism she is stable for discharge she will follow-up with PCP and return if worsening. Medical Records I reviewed the patient's medical records. Lab Data I reviewed the patient's lab results. 02/08/23 21:36 02/08/23 21:36 Radiology Impressions Chest X-Ray 02/08/23 20:45 IMPRESSION: No acute cardiopulmonary disease. Laboratory Results WBC 11.59 10^3/uL (3.29-11.43) H 02/08/23 21:36 RBC 4.58 10^6/uL (3.85-5.65) 02/08/23 21:36 Hgb 12.60 g/dL (11.27-16.99) 02/08/23 21:36 Hct 39.7 % (36-47) 02/08/23 21:36 MCV 86.7 fl (85-98) 02/08/23 21:36 MCH 27.5 pg (27-33) 02/08/23 21:36 MCHC 31.7 g/dL (30-55) 02/08/23 21:36 RDW 13.8 % (12.1-15.1) 02/08/23 21:36 Plt Count 337 10^3/cmm (157-399) 02/08/23 21:36 MPV 10.7 fL (7.4-10.4) H 02/08/23 21:36 Neut % (Auto) 59.3 % 02/08/23 21:36 Lymph % (Auto) 32.4 % 02/08/23 21:36 Carter % (Auto) 6.0 % 02/08/23 21:36 Eos % (Auto) 1.6 % 02/08/23 21:36 Baso % (Auto) 0.4 % 02/08/23 21:36 Neut # (Auto) 6.88 10^3/uL (1.8-7.7) 02/08/23 21:36 Lymph # (Auto) 3.8 10^3/uL (0.8-4.8) 02/08/23 21:36 Carter # (Auto) 0.7 10^3/uL (0.2-0.9) 02/08/23 21:36 Eos # (Auto) 0.2 10^3/uL (0.0-0.8) 02/08/23 21:36 Baso # (Auto) 0.1 10^3/uL (0.0-0.1) 02/08/23 21:36 Nucleated RBC % (auto) 0 % 02/08/23 21:36 Nucleated RBCs # 0.0 /100WBC 02/08/23 21:36 Sodium 139 mmol/L (136-145) 02/08/23 21:36 Potassium 3.9 mmol/L (3.5-5.1) 02/08/23 21:36 Chloride 104 mmol/L (98-107) 02/08/23 21:36 Carbon Dioxide 25 mmol/L (22-29) 02/08/23 21:36 Anion Gap 13.9 (5-19) 02/08/23 21:36 BUN 14 mg/dL (6-20) 02/08/23 21:36 Creatinine 0.5 mg/dL (0.5-0.9) 02/08/23 21:36 GFR Calculation 138.8 mL/min (90-130) H 02/08/23 21:36 Glucose 101 mg/dL (65-115) 02/08/23 21:36 Calculated Osmolality 289 mOsm/kg (285-295) 02/08/23 21:36 Calcium 8.9 mg/dL (8.5-10.5) 02/08/23 21:36 Total Bilirubin 0.2 mg/dL (0.15-1.2) 02/08/23 21:36 AST 10 U/L (0-32) 02/08/23 21:36 ALT 12 U/L (0-33) 02/08/23 21:36 Alkaline Phosphatase 117 U/L (35-105) H 02/08/23 21:36 Troponin T Baseline 6 ng/L (0-10) 02/08/23 21:36 Troponin T 120 Minute 6.00 ng/L (0-10) 02/08/23 23:10 Delta Troponin T 0 ABS# (0-10) 02/08/23 23:10 Total Protein 6.9 g/dL (6.6-8.7) 02/08/23 21:36 Albumin 4.1 g/dL (3.5-5.2) 02/08/23 21:36 Globulin 2.8 g/dL (1.3-4.6) 02/08/23 21:36 Lipase 19 U/L (13-60) 02/08/23 21:36 Discharge Plan Discharge Patient Disposition: Home Clinical Impression: Chest pain Condition: Stable Prescriptions: No Action nifedipine 30 mg tablet extended release 30 mg PO DAILY ferrous sulfate [FeroSul] 325 mg (65 mg iron) tablet 325 mg PO DAILY propranolol 20 mg tablet 20 mg PO BID PRN (Reason: anxiety) Qty: 60 1RF Rx Instructions: take one tablet by mouth morning and evening, if needed for anxiety fluoxetine 40 mg capsule 40 mg PO QAM Qty: 30 1RF Rx Instructions: Take one capsule by mouth every morning clotrimazole-betamethasone 1-0.05 % lotion 1 applic topical BID 14 Days Qty: 60 0RF Rx Instructions: Repeat for 2 weeks if it has not resolved/returns levothyroxine 50 mcg capsule 50 mcg PO DAILY Qty: 90 5RF aspirin [Adult Aspirin Regimen] 81 mg tablet,delayed release (DR/EC) 81 mg PO DAILY loratadine 10 mg tablet 10 mg PO DAILY Qty: 30 0RF meclizine 25 mg tablet 25 mg PO TID PRN (Reason: dizziness) Qty: 20 0RF Discharge Orders: Discharge ED (Routine); Ordered 02/08/23 Ordered By: Coleman Cochran Referrals: Selvin Conrad MD [Primary Care Provider] - 1-3 days Discharge Diet: Advance as tolerated Discharge Activity: Resume usual activity Patient Instructions: Chest Pain (ED) Coding Level of Care Code ED Bandage Maker for Rai Domingo
[2023-02-08] MEDS: LORazepam 1 mg Tablet PO (23:35)
--- NOTE | 2023-02-08 23:37 | PC.NURSE ---
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 Care assumed from prior shift at 2334 and was not given by prior nurse.
[2023-02-08 23:39] LABS: Troponin 5 2HR Delta 0 ABS# (0-10)
[2023-02-08 23:53] VITALS: BP 124/68; PULSE 88; RESP 20; O2SAT 98
[2023-02-09 00:09] VITALS: BP 105/68; PULSE 68; RESP 20; O2SAT 98
== END 2023-02-09 00:12 | disposition home or self-care (01) ==
PROVIDERS: Emergency Provider Emergency Medicine; PCP Family Medicine Adult Medicine
DX: R07.9 Chest pain, unspecified (principal); Z79.82 Long term (current) use of aspirin
CPT/HCPCS: 36415; 71045; 80053; 83690; 84484; 85025; 93005; 99285

== ENCOUNTER 2023-04-25 07:37 | Day surgery (SDC) | payer BC, MEDICAID, SELFPAY ==
[2022-07-04 11:18] VITALS: BP 142/89; BMI 44.7
[2023-04-25] VITALS (15 sets, daily range): BP systolic 125–175; BP diastolic 73–100; PULSE 40–58; RESP 13–21; TEMP 36.1–36.7; O2SAT 96–100; BMI 45.4
[2023-04-25] MEDS: scopolamine 1.5 Patch 1 PATCH TRANSDERMA (08:44)
[2023-04-25] MEDS: sodium chloride 0.9% 500 ML IV (08:45)
--- NOTE | 2023-04-25 08:46 | W.PM.OPSUD ---
Surgery/Procedure H&P Update DATE OF PROCEDURE: April 25, 2023 DATE H&P PERFORMED: 04/17/23 H&P UPDATE INFORMATION: I have reviewed H&P completed within last 30 days, I have examined patient prior to procedure and No changes to prior documentation PREOP DIAGNOSIS: Desire permanent sterilization PLANNED PROCEDURE: Operation Date: 04/25/23 10:30 Proposed Procedures p Laparoscopic bilateral salpingectomy 56433, Z30.2(Bilateral) - Earle Turner MD
[2023-04-25 08:47] LABS: Basophils # 0.1 10^3/uL (0.0-0.1); Basophils % 0.7 %; Eosinophils # 0.1 10^3/uL (0.0-0.8); Eosinophils % 1.6 %; Hematocrit 39.5 % (36-47); Lymphocytes # 2.6 10^3/uL (0.8-4.8); Lymphocytes % 33.7 %; Mean Corpuscular HGB Conc 31.6 g/dL (30-55); Mean Corpuscular Hemoglobin 26.5 pg (27-33); Mean Corpuscular Volume 83.7 fl (85-98); Mean Platelet Volume 11.7 fL (7.4-10.4); Monocytes # 0.5 10^3/uL (0.2-0.9); Monocytes % 6.3 %; Neutrophils % 57.2 %; Nucleated Red Blood Cells % 0 %; Platelet Count 261 10^3/cmm (157-399); Red Blood Count 4.72 10^6/uL (3.85-5.65); White Blood Count 7.68 10^3/uL (3.29-11.43)
[2023-04-25 08:56] LABS: OR HCG Qualitative Urine Negative (Negative)
[2023-04-25] MEDS: sodium chloride 0.9% 1,000 ML 30 ML IV (08:59)
--- NOTE | 2023-04-25 09:02 | P.ANESASSM_ITS ---
Pre-Anesthetic Assessment Height/Weight: Height 1.65 m Weight 123.831 kg BP O2 Del Method 175/100 Room Air 04/25/23 08:44 04/25/23 08:14 Preop Diagnosis: Desire permanent sterilization Operation Date: 04/25/23 10:30 Proposed Procedures p Laparoscopic bilateral salpingectomy 85023, Z30.2(Bilateral) - Earle Turner MD Familial anesthetic complications: None Was Beta Pat taken within 24 hours: N/A Was Clonidine taken within 24 hours: N/A Last intake: Intake Last Liquid Date 04/24/23 Last Liquid Time 18:30 Last Solid Date 04/24/23 Last Solid Time 18:30 Social No alcohol and No tobacco Exam alert, oriented x 3, clear to auscultation bilaterally and regular rate & rhythm Airway Mallampati: Class III Dentition: full Pulmonary Sleep Apnea Metabolic Morbid Obesity and Thyroid Disease Anesthetic Plan ASA status: 3 Anesthesia: General Risk of > 500 ml blood loss (7ml/kg in children): No Medications/Allergies Home Medications Medication Instructions Recorded Confirmed Last Taken Type fluoxetine 40 mg capsule 40 mg PO QAM #30 caps 01/17/23 04/25/23 04/23/23 Rx propranolol 20 mg tablet 20 mg PO BID PRN anxiety #60 tabs 01/17/23 04/18/23 04/23/23 Rx Allergies Allergy/AdvReac Type Severity Reaction Status Date / Time SOYBEAN OIL Allergy Severe ANAPHYLAXIS Uncoded 04/25/23 08:13 Current Medications Generic Name Dose Route Start Last Admin Trade Name Freq PRN Reason Stop Dose Admin Sodium Chloride 1,000 mls @ 30 mls/hr 04/25/23 08:15 04/25/23 08:59 Sodium Chloride 0.9% IV 04/26/23 08:14 30 mls/hr .Q24H ASHLEY Administration PFSH Anesthesia Medical History Bilateral knee pain Epidermoid cyst of hand Ganglion cyst of dorsum of right wrist Infertility 04/15/2014-- Discussed that her inability to get was possibly because of an ovulation caused by PCO S.. given that her is 52 years old with medical problems like diabetes I would also recommend a oucy-dd-xyld evaluation to rule out male factor as a cause for her infertility. I would recommend him getting a sperm count as well. Discussed that I would recommend initial regulation of her period for about 6 months and then we can consider ovulation induction with Clomid. Offered her the option of seeing an infertility specialist which she declines at this point. We will reevaluate her infertility in 6 months. Insomnia disorder with non-sleep disorder mental comorbidity Morbid obesity with BMI of 45.0-49.9, adult Night terrors, adult PCOS (polycystic ovarian syndrome) 04/12/19--- Patient came with irregular bleeding-first, who has a history of oligomenorrhea. She refers she was told before that she might have PCOS. Pelvic ultrasound done showed normal uterus and multifolicular ovaries. Bilateral ovaries had several follicles. Discussed that her oligomenorrhea and excess vaginal bleeding when she gets her period as well as increased hair growth noticed on her face were suf ficient to give her a diagnosis of PCOS. Discussed the ultrasound shows multifollicular ovaries were suspicious for PCOS. Discussed that since her TSH, prolactin, test was normal and her ultrasound showed no major abnormalities of her uterus and multifollicular ovaries that PCOS was the mo st likely cause of her irregular menses. I discussed that PCOS was a state of excessive estrogen and androgen levels. Discussed that women with PCOS are at a higher risk of developing hypertension, diabetes, coronary artery disease, elevated cholesterol level, insulin resistance. I discussed that it would be important to screen for these with fasting lipid level as well as two-hour glucose tolerance test. I also discussed that the hormonal imbalance causes her oligomenorrhea and that she was likely having anovulatory cycles. I discussed that the most important thing to do would be weight loss through exercise and diet. I recommend 30 minutes to one hour of exercise 5-6 times a week, low carbohydrate diet. I discussed that women who lost 10-15% of body fat automatically began ovulating and having regular menstrual periods. She refer she does not want to get . I discussed that the unopposed estrogen in patients with PCOS can cause endometrial hyperplasia/cancer. I discussed that it was important to induce regular periods. She agrees with this plan and as she currently does not plan to get we will use control pills to obtain regular periods as well as to prevent . In 6 months if she has lost sufficient weight, we will stop control pills and see if she cycles on her own. Post traumatic stress disorder (PTSD) Psychiatric care Severe obstructive sleep apnea-hypopnea syndrome Subcutaneous nodule of chest wall Surgical History No history of previous surgery Family History Mother Breast cancer dx age Hypertension Grandmother Hypertension MATERNAL AND PATERNAL Diabetes MATERNAL Grandfather Hypertension MATERNAL AND PATERNAL Heart disease MATERNAL AND PATERNAL Family/Other No problems noted. Other Borderline personality disorder Denies family history of Colon cancer Ovarian cancer Hyperlipidemia Uterine cancer Thyroid disease Stroke Social History Substance/Drug Use: current Substance/Drug use frequency: daily Other substance/drug use details: last use 03.06.22 Current occupation: working on disability Do you think of yourself as: Straight/Heterosexual Female Reproductive History Date of last menstrual period: 04/13/23 Para: 0 Spontaneous abortions: No Data Anesthesia 04/25/23 08:30 04/25/23 08:30 Short CBC 04/25/23 Range/Units 08:30 WBC 7.68 (3.29-11.43) 10^3/uL Hgb 12.50 (11.27-16.99) g/dL Hct 39.5 (36-47) % MCV 83.7 L (85-98) fl Plt Count 261 (157-399) 10^3/cmm Neut % (Auto) 57.2 % Neut # (Auto) 4.40 (1.8-7.7) 10^3/uL Cardiac Studies: No Data to Display
[2023-04-25 09:05] LABS: Alanine Aminotransferase 16 U/L (0-33); Albumin Level 4.2 g/dL (3.5-5.2); Alkaline Phosphatase 97 U/L (35-105); Anion Gap 12.1 (5-19); Aspartate Amino Transferase 16 U/L (0-32); Blood Urea Nitrogen 13 mg/dL (6-20); Calcium 9.1 mg/dL (8.5-10.5); Carbon Dioxide 27 mmol/L (22-29); Chloride 105 mmol/L (98-107); Globulin 3.4 g/dL (1.3-4.6); Glomerular Filtration Rate 138.1 mL/min (90-130); Glucose 112 mg/dL (65-115); Osmolality Calculated 291 mOsm/kg (285-295); Potassium 4.1 mmol/L (3.5-5.1); Sodium 140 mmol/L (136-145); Total Bilirubin 0.3 mg/dL (0.15-1.2); Total Protein 7.6 g/dL (6.6-8.7)
[2023-04-25 09:46] LABS: Add Urine Microscopic? YES; Bilirubin Urine Neg (Negative); Blood Urine Neg (Negative); Glucose Urine UA Norm (Normal); Ketones Urine Negative (Negative); Leukocyte Esterase Urine Trace (Negative); Nitrate Urine Negative (Negative); Protein Urine Neg (Negative); Urine Appearance SL Hazy (CLEAR); Urine Color Yellow (Yellow); Urobilinogen Urine Norm (Negative); pH Urine 6 (5-7)
[2023-04-25 09:57] LABS: Add Urine Culture? No; Bacteria Urine t /hpf; Mucus Urine 1+ /hpf; RBC Urine 0-4 /hpf (0-2); Squamous Epithelial Cell Urine 0-4 /hpf (0-5)
[2023-04-25] MEDS: ceFAZolin 2,000 MG in sodium chloride 0.9% (plus) 50 ML 100 MG IV (13:03)
[2023-04-25] MEDS: BUPivacaine 0.5% INJ 10 mL INJECTION (13:36)
--- NOTE | 2023-04-25 14:05 | PM.OP ---
Operative Report Date of procedure: April 25, 2023 Pre-op diagnosis: Desire permanent sterilization Post-op diagnosis: Same Procedure done: Laparoscopic bilateral salpingectomy Surgeon: Earle Turner MD Estimated blood loss (mL): 5 IV fluids (mL): 400 Urine output (mL): 25 Procedure: After informed consent, the patient was taken to the operating room where general anesthesia was administered. She was placed in the dorsal lithotomy position and prepped and draped in sterile fashion. Pre-Procedure Time-Out verifying the correct patient identity, correct procedure verified with consent, correct site and side, correct patient position, availability of correct implants and any special equipment or requirements was performed and acknowledge by the OR team. The patient was examined under anesthesia and found to have a normal uterus with normal adnexa. A weighted speculum was placed in the vagina, and the anterior lip of cervix was grasped with the single toothed tenaculum. A uterine manipulator was advanced into the endocervical canal and uterus. The tenaculum was removed after uterine manipulator was secured. The speculum was removed from the vagina. An intraumbilical incision was made with a scalpel. While tenting up on the abdomen, a Verres needle was admitted into the intra-abdominal cavity. A saline drop test was performed and noted to be within normal limits. Pneumoperitoneum was attained with 4 liters of carbon dioxide. The Verres needle was removed. A 5 mm Opitc view trocar and sleeve were admitted into the abdomen and laparoscopic confirmation of location was achieved. A second incision was made 3 cm above the symphysis pubis, and a 5 mm trocar sleeves were admitted into the abdomen under direct laparoscopic visualization without complication. A survey revealed normal abdominal anatomy with the exception of string adhesion to the right lower anterior abdominal wall. A 5 mm blunt probe was advanced through the second trocar sleeve, and light manipulation of ovaries and uterus to assess the posterior aspects was performed. The pelvic survey shows normal uterus, left and right adnexa. The left ovary was noted with a follicular cyst. The string adhesion was fulgurated and transected with good hemostasis with the Ligasure. The patient was placed into Trendelenburg position. The fallopian tubes were inspected bilaterally and the fimbriated ends of the fallopian tubes were visualized bilaterally. Attention was then directed to the right side. The fallopian tube and mesosalpinx were grasped and the underlying mesosalpinx was cauterized and cut using the Ligasure device. Serial cauterization and cutting was used to separate the fallopian tube from the underlying mesosalpinx until it could be amputated cutting it approximated 2 cm from the cornua. Attention was then turned to the contralateral fallopian tube, which was removed in similar fashion. Both specimens were removed through the trocar and sent to pathology. The instruments were removed. The suprapubic trocar port was removed under direct visualization insuring good hemostasis. The carbon dioxide was allowed to escape from the abdomen. The intraumbilical trocar sleeve was withdrawn under visualization with laparoscope in the sleeve to insure hemostasis. The skin incisions were closed with 3-O Monocryl subcuticular stich and Dermabond. The instruments were removed from the vagina, and excellent hemostasis was noted. The patient tolerated the procedure well, and sponge, lap and needle count were correct times two. The patient was taken to the recovery room in good condition.
--- NOTE | 2023-04-25 14:31 | PC.NURSE ---
1430 - airway removed per pt - simple mask at [address]
[2023-04-25] MEDS: fentaNYL 50 mcg/mL INJ 2mL IVP (14:37)
--- NOTE | 2023-04-25 15:15 | ANE.PACU2 ---
Inpatient post-anesthesia follow up: Airway intact: Yes Vital signs: Temperature 98.1 F Pulse Rate 55 Respiratory Rate 17 Blood Pressure 161/94 Pulse Oximetry 96 Oxygen Delivery Me thod Room Air Oxygen Flow Rate 2 Fraction of Inspir ed Oxygen Hydration adequate: Yes Nausea and vomiting: No Pain level: 1 Mental status: Baseline
[2023-04-25] MEDS: HYDROcodone-acetaminophen 5-325 mg Tablet 1 TAB PO (15:33)
== END 2023-04-25 15:50 | disposition home or self-care (01) ==
PROVIDERS: PCP Family Medicine Adult Medicine; Visit Provider Obstetrics & Gynecology
PROC: (CPT 58661; principal; 2023-04-25 10:20)
DX: Z30.2 Encounter for sterilization (principal); G47.30 Sleep apnea, unspecified; E66.01 Morbid (severe) obesity due to excess calories; Z68.42 Body mass index [BMI] 45.0-49.9, adult; E28.2 Polycystic ovarian syndrome
CPT/HCPCS: 58661; 36415; 80053; 81001; 81025; 84703; 85025; 86850; 86900; 88302; J0690; J1100; J2250; J2405; J2704; J3010; J3490; J7030; J7040

== ENCOUNTER 2023-04-27 15:12 | Emergency (ER) | payer BC, MEDICAID, SELFPAY ==
[2022-07-04 11:18] VITALS: BP 142/89; BMI 44.7
[2023-04-27 15:21] VITALS: BP 152/91; PULSE 70; RESP 18; TEMP 36.9; O2SAT 97; BMI 45.6
--- NOTE | 2023-04-27 15:38 | ED_ITS ---
Documented by User: DENITA Jamison 04/27/23 21:03 HPI - Female Genitourinary General: Chief complaint: Vaginal Bleeding Stated complaint: vag bleeding Time Seen by Provider: 04/27/23 15:27 History of Present Illness: Patient is in today for complaints of vaginal bleeding. Patient reports that on Monday she had a tubal ligation. She reports that today she has bleeding even heavier. She reports going through 4 pads in the course of today. She states that she change her last pad 1 hour ago at 2:30 PM. Patient reports that she is feeling a little bit dizzy and tired. Associated symptoms: Reports abdominal pain (Generalized abdominal cramping) Review of Systems Const: Reports: fatigue; Denies: fever(s) or chills Card: Denies: chest pain or palpitations Resp: Denies: dyspnea, productive cough or non-productive cough GI: Reports: abdominal pain (Generalized abdominal cramping) : Reports: vaginal bleeding [facility] ED PFSH: Medical History Bilateral knee pain Epidermoid cyst of hand Ganglion cyst of dorsum of right wrist Infertility 04/15/2014-- Discussed that her inability to get was possibly because of an ovulation caused by PCO S.. given that her is 52 years old with medical problems like diabetes I would also recommend a [id number] evaluation to rule out male factor as a cause for her infertility. I would recommend him getting a sperm count as well. Discussed that I would recommend initial regulation of her period for about 6 months and then we can consider ovulation induction with Clomid. Offered her the option of seeing an infertility specialist which she declines at this point. We will reevaluate her infertility in 6 months. Insomnia disorder with non-sleep disorder mental comorbidity Morbid obesity with BMI of 45.0-49.9, adult Night terrors, adult PCOS (polycystic ovarian syndrome) 04/12/19--- Patient came with irregular bleeding-first, who has a history of oligomenorrhea. She refers she was told before that she might have PCOS. Pelvic ultrasound done showed normal uterus and multifolicular ovaries. Bilateral ovaries had several follicles. Discussed that her oligomenorrhea and excess vaginal bleeding when she gets her period as well as increased hair growth noticed on her face were sufficient to give her a diagnosis of PCOS. Discussed the ultrasound shows multifollicular ovaries were suspicious for PCOS. Discussed that since her TSH, prolactin, test was normal and her ultrasound showed no major abnormalities of her uterus and multifollicular ovaries that PCOS was the most likely cause of her irregular menses. I discussed that PCOS was a state of excessive estrogen and androgen levels. Discussed that women with PCOS are at a higher risk of developing hypertension, diabetes, coronary artery disease, elevated cholesterol level, insulin resistance. I discussed that it would be important to screen for these with fasting lipid level as well as two-hour glucose tolerance test. I also discussed that the hormonal imbalance causes her oligomenorrhea and that she was likely having anovulatory cycles. I discussed that the most important thing to do would be weight loss through exercise and diet. I recommend 30 minutes to one hour of exercise 5-6 times a week, low carbohydrate diet. I discussed that women who lost 10-15% of body fat automatically began ovulating and having regular menstrual periods. She refer she does not want to get . I discussed that the unopposed estrogen in patients with PCOS can cause endometrial hyperplasia/cancer. I discussed that it was important to induce regular periods. She agrees with this plan and as she currently does not plan to get we will use control pills to obtain regular periods as well as to prevent pregn joel. In 6 months if she has lost sufficient weight, we will stop control pills and see if she cycles on her own. Post traumatic stress disorder (PTSD) Psychiatric care Severe obstructive sleep apnea-hypopnea syndrome Subcutaneous nodule of chest wall Surgical History No history of previous surgery Family History Mother Breast cancer dx age Hypertension Grandmother Hypertension MATERNAL AND PATERNAL Diabetes MATERNAL Grandfather Hypertension MATERNAL AND PATERNAL Heart disease MATERNAL AND PATERNAL Family/Other No problems noted. Other Borderline personality disorder Denies family history of Colon cancer Ovarian cancer Hyperlipidemia Uterine cancer Thyroid disease Stroke Social History Substance/Drug Use: current Substance/Drug use frequency: daily Other substance/drug use details: last use 03.06.22 Current occupation: working on disability Do you think of yourself as: Straight/Heterosexual Female Reproductive History: Para: 0 Spontaneous abortions: No Physical Exam Const: COMMON NORMALS: no acute distress, patient oriented x3 and alert Neck/C-Spine: COMMON NORMALS: no JVD Resp: COMMON NORMALS: normal respiratory effort, No use of accessory muscles and clear to auscultation bilaterally AUSCULTATION: clear to auscultation bilaterally Cardio: COMMON NORMALS: no JVD, regular rate, regular rhythm, S1 normal heart sound present and S2 normal heart sound present RATE: regular rate RHYTHM: regular rhythm HEART SOUNDS: S1 normal heart sound present and S2 normal hear t sound present GI: COMMON NORMALS: Soft to palpation INSPECTION: Yes normal to inspection AUSCULTATION: Yes normoactive bowel sounds PALPATION: Yes Soft to palpation and Yes Tenderness to palpation present (GI) Details: LLQ, RLQ, LUQ and RUQ : OTHER: Attempted to do a pelvic examination. Speculum inserted partially and patient reports significant tenderness. Examination ended at that time. There is minimal blood noted in the vaginal vault. Pad has minimal blood noted that has been in place for 3 hours. Patient is generally tender to abdomen and with pelvic exam. Neuro: COMMON NORMALS: patient oriented x3 SENSORIUM/ORIENTATION: Yes alert Psych: MOOD & AFFECT: Yes Flat affect present Course Vital Signs: Vital signs: Vital Signs Temperature 98.5 F 04/27/23 15:21 Pulse Rate 66 04/27/23 18:47 Respiratory Rate 18 04/27/23 15:21 Blood Pressure 138/81 04/27/23 18:47 Pulse Oximetry 95 04/27/23 18:47 Oxygen Delivery Me thod Room Air 04/27/23 18:47 MDM - Female Medical Decision Making Patient is in today for vaginal bleeding. She had a tubal ligation on Monday a nd reports heavy bleeding today with dizziness and fatigue. Patient is in no acute distress. She has a flat affect. Vital signs are stable. Patient is generally tender anywhere she is touched on her abdomen. She was extremely tender with attempted pelvic exam. I called and spoke with Dr. Valera, on-call for [facility], and he advised that he will come down and evaluate the patient. Dr. Thomas came to see patient and recommends a CT abdomen and pelvis with a chest x-ray. I called and discussed CT abdomen results and chest x-ray results with Dr. Thomas. He agrees that patient's pain is likely typical postoperative pain from laparoscopic procedure. He agrees with discharge to home and continued follow-up as already scheduled with surgeon. I discussed this with the patient. She does have pain medication at home already for postop pain. She is agreeable to discharge to home. Advised her to follow-up as already scheduled. Return to the ER as needed for any new or worsening symptoms. Lab Data 04/27/23 16:25 04/27/23 16:25 Radiology Impressions Abdomen/Pelvis CT 04/27/23 19:21 IMPRESSION: 1. Pneumoperitoneum. Small volume free fluid and/or blood products in the pelvis. Presumably postoperative given patient history. 2. Cholelithiasis without findings of acute cholecystitis. Chest X-Ray 04/27/23 19: IMPRESSION: 1. No acute airspace disease. 2. Pneumoperitoneum beneath the right hemidiaphragm, presumably postoperative, correlate clinically. Laboratory Results WBC 11.56 10^3/uL (3.29-11.43) H 04/27/23 16:25 RBC 4.53 10^6/uL (3.85-5.65) 04/27/23 16:25 Hgb 11.90 g/dL (11.27-16.99) 04/27/23 16:25 Hct 38.9 % (36-47) 04/27/23 16:25 MCV 85.9 fl (85-98) 04/27/23 16:25 MCH 26.3 pg (27-33) L 04/27/23 16:25 MCHC 30.6 g/dL (30-55) 04/27/23 16:25 RDW 14.5 % (12.1-15.1) 04/27/23 16:25 Plt Count 263 10^3/cmm (157-399) 04/27/23 16:25 MPV 11.1 fL (7.4-10.4) H 04/27/23 16:25 Neut % (Auto) 63.8 % 04/27/23 16:25 Lymph % (Auto) 28.9 % 04/27/23 16:25 [place] % (Auto) 5.4 % 04/27/23 16:25 Eos % (Auto) 1.1 % 04/27/23 16:25 Baso % (Auto) 0.4 % 04/27/23 16:25 Neut # (Auto) 7.37 10^3/uL (1.8-7.7) 04/27/23 16:25 Lymph # (Auto) 3.3 10^3/uL (0.8-4.8) 04/27/23 16:25 [place] # (Auto) 0.6 10^3/uL (0.2-0.9) 04/27/23 16:25 Eos # (Auto) 0.1 10^3/uL (0.0-0.8) 04/27/23 16:25 Baso # (Auto) 0.1 10^3/uL (0.0-0.1) 04/27/23 16:25 Nucleated RBC % (auto) 0 % 04/27/23 16:25 Nucleated RBCs # 0.0 /100WBC 04/27/23 16:25 Sodium 142 mmol/L (136-145) 04/27/23 16:25 Potassium 3.5 mmol/L (3.5-5.1) 04/27/23 16:25 Chloride 107 mmol/L (98-107) 04/27/23 16:25 Carbon Dioxide 28 mmol/L (22-29) 04/27/23 16:25 Anion Gap 10.5 (5-19) 04/27/23 16:25 BUN 12 mg/dL (6-20) 04/27/23 16:25 Creatinine 0.6 mg/dL (0.5-0.9) 04/27/23 16:25 GFR Calculation 111.9 mL/min (90-130) 04/27/23 16:25 Glucose 102 mg/dL (65-115) 04/27/23 16:25 Calculated Osmolality 294 mOsm/kg (285-295) 04/27/23 16:25 Calcium 8.7 mg/dL (8.5-10.5) 04/27/23 16:25 Total Bilirubin 0.2 mg/dL (0.15-1.2) 04/27/23 16:25 AST 12 U/L (0-32) 04/27/23 16:25 ALT 12 U/L (0-33) 04/27/23 16:25 Alkaline Phosphatase 95 U/L (35-105) 04/27/23 16:25 Total Protein 6.8 g/dL (6.6-8.7) 04/27/23 16:25 Albumin 3.8 g/dL (3.5-5.2) 04/27/23 16:25 Globulin 3.0 g/dL (1.3-4.6) 04/27/23 16:25 Urine Color Yellow (Yellow) 04/27/23 17:42 Urine Appearance Cloudy (CLEAR) A 04/27/23 17:42 Urine pH 6 (5-7) 04/27/23 17:42 Ur Specific [place] 1.020 (1.005-1.030) 04/27/23 17:42 Urine Protein Neg (Negative) 04/27/23 17:42 Urine Glucose (UA) Norm (Normal) 04/27/23 17:42 Urine Ketones Negative (Negative) 04/27/23 17:42 Urine Blood 3+ (Negative) H 04/27/23 17:42 Urine Nitrate Negative (Negative) 04/27/23 17:42 Urine Bilirubin Neg (Negative) 04/27/23 17:42 Urine Urobilinogen Norm mg/dL (Negative) 04/27/23 17:42 Ur Leukocyte Esterase Negative (Negative) 04/27/23 17:42 Urine RBC >100 /hpf (0-2) H 04/27/23 17:42 Urine WBC 0-4 /hpf (0-5) H 04/27/23 17:42 Ur Squamous Epith Cells 5-10 /hpf (0-5) H 04/27/23 17:42 Amorphous Sediment Not Reportable 04/27/23 17:42 Urine Bacteria Trace /hpf (NONE) 04/27/23 17:42 Urine Mucus 4+ /hpf 04/27/23 17:42 All radiology interpretation(s) finalized by discharge Discharge Plan Discharge Patient Disposition: Home Clinical Impression: Vaginal bleeding, Postoperative abdominal pain Condition: Stable Prescriptions: No Action propranolol 20 mg tablet 20 mg PO BID PRN (Reason: anxiety) Qty: 60 1RF fluoxetine 40 mg capsule 40 mg PO QAM Qty: 30 1RF ibuprofen 800 mg tablet 800 mg PO TID PRN (Reason: pain) Qty: 60 0RF hydrocodone-acetaminophen 5-325 mg tablet 1 tab PO Q4H PRN (Reason: pain) Qty: 10 0RF acetaminophen 325 mg capsule 325 mg PO Q4H PRN (Reason: fever or pain) Qty: 60 0RF Discharge Orders: Discharge ED (Routine); Ordered 04/27/23 Ordered By: Darlene Smith Referrals: Selvin Conrad MD [Primary Care Provider] - Discharge Diet: Usual diet Discharge Activity: Limit activity as instructed Patient Instructions: Opioid Safety, Pain Management Activity Restrictions/Additional Instructions: Your CT did not show any acute changes. I spoke with Dr. Thomas and he agrees that your pain is typical postoperative pain. Follow-up as already scheduled with your surgeon for your postop appointment. Make sure that you are staying well- hydrated. Use your pain medication prescribed to you as directed as needed for pain. Return to the ER as needed for any new or worsening symptoms Coding Level of Care Code ED Custodial Worker for Chg Fwd Documented by User: Otoniel Ward DO 04/29/23 06:30 HPI - Female Genitourinary General: Chief complaint: Vaginal Bleeding Stated complaint: vag bleeding Time Seen by Provider: 04/27/23 15:27 [facility] ED PFSH: Medical History Bilateral knee pain Epidermoid cyst of hand Ganglion cyst of dorsum of right wrist Infertility 04/15/2014-- Discussed that her inability to get was possibly because of an ovulation caused by PCO S.. given that her is 52 years old with medical problems like diabetes I would also recommend a [id number] evaluation to rule out male factor as a cause for her infertility. I would recommend him getting a sperm count as well. Discussed that I would recommend initial regulation of her period for about 6 months and then we can consider ovulation induction with Clomid. Offered her the option of seeing an infertility specialist which she declines at this point. We will reevaluate her infertility in 6 months. Insomnia disorder with non-sleep disorder mental comorbidity Morbid obesity with BMI of 45.0-49.9, adult Night terrors, adult PCOS (polycystic ovarian syndrome) 04/12/19--- Patient came with irregular bleeding-first, who has a history of oligomenorrhea. She refers she was told before that she might have PCOS. Pelvic ultrasound done showed normal uterus and multifolicular ovaries. Bilateral ovaries had several follicles. Discussed that her oligomenorrhea and excess vaginal bleeding when she gets her period as well as increased hair growth noticed on her face were sufficient to give her a diagnosis of PCOS. Discussed the ultrasound shows multifollicular ovaries were suspicious for PCOS. Discussed that since her TSH, prolactin, test was normal and her ultrasound showed no major abnormalities of her uterus and multifollicular ovaries that PCOS was the most likely cause of her irregular menses. I discussed that PCOS was a state of excessive estrogen and androgen levels. Discussed that women with PCOS are at a higher risk of developing hypertension, diabetes, coronary artery disease, elevated cholesterol level, insulin resistance. I discussed that it would be important to screen for these with fasting lipid level as well as two-hour glucose tolerance test. I also discussed that the hormonal imbalance causes her oligomenorrhea and that she was likely having anovulatory cycles. I discussed that the most important thing to do would be weight loss through exercise and diet. I recommend 30 minutes to one hour of exercise 5-6 times a week, low carbohydrate diet. I discussed that women who lost 10-15% of body fat automatically began ovulating and having regular menstrual periods. She refer she does not want to get . I discussed that the unopposed estrogen in patients with PCOS can cause endometrial hyperplasia/cancer. I discussed that it was important to induce regular periods. She agrees with this plan and as she currently does not plan to get we will use control pills to obtain regular periods as well as to prevent . In 6 months if she has lost sufficient weight, we will stop control pills and see if she cycles on her own. Post traumatic stress disorder (PTSD) Psychiatric care Severe obstructive sleep apnea-hypopnea syndrome Subcutaneous nodule of chest wall Surgical History No history of previous surgery Family History Mother Breast cancer dx age Hypertension Grandmother Hypertension MATERNAL AND PATERNAL Diabetes MATERNAL Grandfather Hypertension MATERNAL AND PATERNAL Heart disease MATERNAL AND PATERNAL Family/Other No problems noted. Other Borderline personality disorder Denies family history of Colon cancer Ovarian cancer Hyperlipidemia Uterine cancer Thyroid disease Stroke Social History Substance/Drug Use: current Substance/Drug use frequency: daily Other substance/drug use details: last use 03.06.22 Current occupation: working on disability Do you think of yourself as: Straight/Heterosexual Course Vital Signs: Vital signs: Vital Signs Temperature 98.5 F 04/27/23 15:21 Pulse Rate 66 04/27/23 18:47 Respiratory Rate 18 04/27/23 15:21 Blood Pressure 138/81 04/27/23 18:47 Pulse Oximetry 95 04/27/23 18:47 Oxygen Delivery Me thod Room Air 04/27/23 18:47 MDM - Female Medical Decision Making Patient is in today for vaginal bleeding. She had a tubal ligation on Monday and reports heavy bleeding today with dizziness and fatigue. Patient is in no acute distress. She has a flat affect. Vital signs are stable. Patient is generally tender anywhere she is touched on her abdomen. She was extremely tender with attempted pelvic exam. I called and spoke with Dr. Valera, on-call for [facility], and he advised that he will come down and evaluate the patient. Dr. Thomas came to see patient and recommends a CT abdomen and pelvis with a chest x-ray. I called and discussed CT abdomen results and chest x-ray results with Dr. Thomas. He agrees that patient's pain is likely typical postoperative pain from laparoscopic procedure. He agrees with discharge to home and continued follow-up as already scheduled with surgeon. I discussed this with the patient. She does have pain medication at home already for postop pain. She is agreeable to discharge to home. Advised her to follow-up as already scheduled. Return to the ER as needed for any new or worsening symptoms. Chart reviewed and patient discussed with midlevel. Agree with assessment and plan. Lab Data 04/27/23 16:25 04/27/23 16:25 Radiology Impressions Abdomen/Pelvis CT 04/27/23 19:21 IMPRESSION: 1. Pneumoperitoneum. Small volume free fluid and/or blood products in the pelvis. Presumably postoperative given patient history. 2. Cholelithiasis without findings of acute cholecystitis. Chest X-Ray 04/27/23 19:21 IMPRESSION: 1. No acute airspace disease. 2. Pneumoperitoneum beneath the right hemidiaphragm, presumably postoperative, correlate clinically. Laboratory Results WBC 11.56 10^3/uL (3.29-11.43) H 04/27/23 16:25 RBC 4.53 10^6/uL (3.85-5.65) 04/27/23 16:25 Hgb 11.90 g/dL (11.27-16.99) 04/27/23 16:25 Hct 38.9 % (36-47) 04/27/23 16:25 MCV 85.9 fl (85-98) 04/27/23 16:25 MCH 26.3 pg (27-33) L 04/27/23 16: MCHC 30.6 g/dL (30-55) 04/27/23 16:25 RDW 14.5 % (12.1-15.1) 04/27/23 16:25 Plt Count 263 10^3/cmm (157-399) 04/27/23 16:25 MPV 11.1 fL (7.4-10.4) H 04/27/23 16:25 Neut % (Auto) 63.8 % 04/27/23 16:25 Lymph % (Auto) 28.9 % 04/27/23 16:25 [place] % (Auto) 5.4 % 04/27/23 16:25 Eos % (Auto) 1.1 % 04/27/23 16: Baso % (Auto) 0.4 % 04/27/23: Neut # (Auto) 7.37 10^3/uL (1.8-7.7) 04/27/23 16:25 Lymph # (Auto) 3.3 10^3/uL (0.8-4.8) 04/27/23 16:25 [place] # (Auto) 0.6 10^3/uL (0.2-0.9) 04/27/23 16:25 Eos # (Auto) 0.1 10^3/uL (0.0-0.8) 04/27/23 16:25 Baso # (Auto) 0.1 10^3/uL (0.0-0.1) 04/27/23 16:25 Nucleated RBC % (auto) 0 % 04/27/23 16:25 Nucleated RBCs # 0.0 /100WBC 04/27/23 16:25 Sodium 142 mmol/L (136-145) 04/27/23 16:25 Potassium 3.5 mmol/L (3.5-5.1) 04/27/23 16:25 Chloride 107 mmol/L (98-107) 04/27/23 16:25 Carbon Dioxide 28 mmol/L (22-29) 04/27/23 16:25 Anion Gap 10.5 (5-19) 04/27/23 16:25 BUN 12 mg/dL (6-20) 04/27/23 16:25 Creatinine 0.6 mg/dL (0.5-0.9) 04/27/23 16:25 GFR Calculation 111.9 mL/min (90-130) 04/27/23 16:25 Glucose 102 mg/dL (65-115) 04/27/23 16:25 Calculated Osmolality 294 mOsm/kg (285-295) 04/27/23 16:25 Calcium 8.7 mg/dL (8.5-10.5) 04/27/23 16:25 Total Bilirubin 0.2 mg/dL (0.15-1.2) 04/27/23 16:25 AST 12 U/L (0-32) 04/27/23 16:25 ALT 12 U/L (0-33) 04/27/23 16:25 Alkaline Phosphatase 95 U/L (35-105) 04/27/23 16:25 Total Protein 6.8 g/dL (6.6-8.7) 04/27/23 16:25 Albumin 3.8 g/dL (3.5-5.2) 04/27/23 16:25 Globulin 3.0 g/dL (1.3-4.6) 04/27/23 16:25 Urine Color Yellow (Yellow) 04/27/23 17:42 Urine Appearance Cloudy (CLEAR) A 04/27/23 17:42 Urine pH 6 (5-7) 04/27/23 17:42 Ur Specific [place] 1.020 (1.005-1.030) 04/27/23 17:42 Urine Protein Neg (Negative) 04/27/23 17:42 Urine Glucose (UA) Norm (Normal) 04/27/23 17:42 Urine Ketones Negative (Negative) 04/27/23 17:42 Urine Blood 3+ (Negative) H 04/27/23 17:42 Urine Nitrate Negative (Negative) 04/27/23 17:42 Urine Bilirubin Neg (Negative) 04/27/23 17:42 Urine Urobilinogen Norm mg/dL (Negative) 04/27/23 17:42 Ur Leukocyte Esterase Negative (Negative) 04/27/23 17:42 Urine RBC >100 /hpf (0-2) H 04/27/23 17:42 Urine WBC 0-4 /hpf (0-5) H 04/27/23 17:42 Ur Squamous Epith Cells 5-10 /hpf (0-5) H 04/27/23 17:42 Amorphous Sediment Not Reportable 04/27/23 17:42 Urine Bacteria Trace /hpf (NONE) 04/27/23 17:42 Urine Mucus 4+ /hpf 04/27/23 17:42 Discharge Plan Discharge Patient Disposition: Home Clinical Impression: Vaginal bleeding, Postoperative abdominal pain Condition: Stable Prescriptions: No Action propranolol 20 mg tablet 20 mg PO BID PRN (Reason: anxiety) Qty: 60 1RF fluoxetine 40 mg capsule 40 mg PO QAM Qty: 30 1RF ibuprofen 800 mg tablet 800 mg PO TID PRN (Reason: pain) Qty: 60 0RF hydrocodone-acetaminophen 5-325 mg tablet 1 tab PO Q4H PRN (Reason: pain) Qty: 10 0RF acetaminophen 325 mg capsule 325 mg PO Q4H PRN (Reason: fever or pain) Qty: 60 0RF Discharge Orders: Discharge ED (Routine); Ordered 04/27/23 Ordered By: Darlene Smith Referrals: Selvin Conrad MD [Primary Care Provider] - Discharge Diet: Usual diet Discharge Activity: Limit activity as instructed Patient Instructions: Opioid Safety, Pain Management Activity Restrictions/Additional Instructions: Your CT did not show any acute changes. I spoke with Dr. Thomas and he agrees that your pain is typical postoperative pain. Follow-up as already scheduled with your surgeon for your postop appointment. Make sure that you are staying well- hydrated. Use your pain medication prescribed to you as directed as needed for pain. Return to the ER as needed for any new or worsening symptoms Coding Level of Care Code ED Custodial Worker for Rai Domingo
[2023-04-27 16:00] VITALS: BP 142/84; PULSE 67; O2SAT 96
[2023-04-27 16:57] LABS: Alanine Aminotransferase 12 U/L (0-33); Albumin Level 3.8 g/dL (3.5-5.2); Alkaline Phosphatase 95 U/L (35-105); Anion Gap 10.5 (5-19); Aspartate Amino Transferase 12 U/L (0-32); Blood Urea Nitrogen 12 mg/dL (6-20); Calcium 8.7 mg/dL (8.5-10.5); Carbon Dioxide 28 mmol/L (22-29); Chloride 107 mmol/L (98-107); Glomerular Filtration Rate 111.9 mL/min (90-130); Glucose 102 mg/dL (65-115); Osmolality Calculated 294 mOsm/kg (285-295); Potassium 3.5 mmol/L (3.5-5.1); Sodium 142 mmol/L (136-145); Total Bilirubin 0.2 mg/dL (0.15-1.2); Total Protein 6.8 g/dL (6.6-8.7)
[2023-04-27 16:58] LABS: Basophils # 0.1 10^3/uL (0.0-0.1); Basophils % 0.4 %; Eosinophils # 0.1 10^3/uL (0.0-0.8); Eosinophils % 1.1 %; Hematocrit 38.9 % (36-47); Lymphocytes # 3.3 10^3/uL (0.8-4.8); Lymphocytes % 28.9 %; Mean Corpuscular HGB Conc 30.6 g/dL (30-55); Mean Corpuscular Hemoglobin 26.3 pg (27-33); Mean Corpuscular Volume 85.9 fl (85-98); Mean Platelet Volume 11.1 fL (7.4-10.4); Monocytes # 0.6 10^3/uL (0.2-0.9); Monocytes % 5.4 %; Neutrophils # 7.37 10^3/uL (1.8-7.7); Neutrophils % 63.8 %; Nucleated Red Blood Cells % 0 %; Platelet Count 263 10^3/cmm (157-399); Red Blood Count 4.53 10^6/uL (3.85-5.65); Red Cell Distribution Width 14.5 % (12.1-15.1); White Blood Count 11.56 10^3/uL (3.29-11.43)
[2023-04-27 18:47] VITALS: BP 138/81; PULSE 66; O2SAT 95
[2023-04-27 18:55] LABS: Add Urine Microscopic? YES; Bilirubin Urine Neg (Negative); Blood Urine 3+ (Negative); Glucose Urine UA Norm (Normal); Ketones Urine Negative (Negative); Leukocyte Esterase Urine Negative (Negative); Nitrate Urine Negative (Negative); Protein Urine Neg (Negative); Urine Appearance Cloudy (CLEAR); Urine Color Yellow (Yellow); Urobilinogen Urine Norm (Negative); pH Urine 6 (5-7)
[2023-04-27 18:58] LABS: Add Urine Culture? Yes; Bacteria Urine TRACE /hpf; Mucus Urine 4+ /hpf; RBC Urine >100 /hpf (0-2); WBC Urine 0-4 /hpf (0-5)
--- NOTE | 2023-04-27 19:21 | XRR_ITS ---
PROCEDURE INFORMATION: Exam: XR Chest Exam date and time: 04/27/2023 7:35 PM Age: 38 years old Clinical indication: Patient HX: Epigastric pain; Excessive bleeding post op tubal (3 days ago); HX HTN TECHNIQUE: Imaging protocol: Radiologic exam of the chest. Views: 2 views. COMPARISON: CR XR chest 1V portable [id number] 02/08/2023 9:04 PM FINDINGS: Lungs: No consolidation. Pleural spaces: No pleural effusion. No pneumothorax. Heart/Mediastinum: Unremarkable cardiomediastinal silhouette. Bones/joints: No acute abnormality. Intraperitoneal space: There is free air beneath the right hemidiaphragm. XR/XR chest 2V* [id number] IMPRESSION: 1. No acute airspace disease. 2. Pneumoperitoneum beneath the right hemidiaphragm, presumably postoperative, correlate clinically.
--- NOTE | 2023-04-27 19:21 | CTR_ITS ---
PROCEDURE INFORMATION: Exam: CT Abdomen And Pelvis With Contrast Exam date and time: 04/27/2023 8:11 PM Age: 38 years old Clinical indication: Abdominal pain; Localized; Lower; Prior surgery; Surgery date: Post-operative (0-2 days); Surgery type: Tubal; Additional info: Abdominal pain post-op tubal ligation TECHNIQUE: Imaging protocol: Computed tomography of the abdomen and pelvis with contrast. Radiation optimization: All CT scans at this facility use at least one of these dose optimization techniques: automated exposure control; mA and/or kV adjustment per patient size (includes targeted exams where dose is matched to clinical indication); or iterative reconstruction. Contrast material: OMNI 350; Contrast volume: 100 ml; Contrast route: INTRAVENOUS (IV); REPORTING DATA: Count of CT and Cardiac NM exams in prior 12 months: This patient has received 0 known CTs and 0 known cardiac nuclear medicine studies in the 12 months prior to the current study. COMPARISON: CT abdomen pelvis w con* [id number] 08/30/2021 9:10 PM RADIATION DOSE METRICS: Total DLP (mGy-cm): 1237 FINDINGS: Liver: Unremarkable. Gallbladder and bile ducts: Cholelithiasis without findings of acute cholecystitis. Pancreas: Unremarkable. No duct dilation. Spleen: Unremarkable. Adrenal glands: Unremarkable. Kidneys and ureters: No hydronephrosis or hydroureter. No renal or ureteral calculi. Stomach and bowel: No bowel obstruction. Appendix: No evidence of appendicitis. Intraperitoneal space: Pneumoperitoneum. Small volume free fluid and/or blood products in the pelvis. Presumably postoperative given patient history. Vasculature: No abdominal aortic aneurysm. Lymph nodes: No enlarged lymph nodes. Urinary bladder: Unremarkable as visualized. Reproductive: Unremarkable as visualized. Bones/joints: No acute fracture. No aggressive osseous lesions. Soft tissues: Small fat/fluid and air containing umbilical hernia. CT/CT abdomen pelvis w con* [id number] IMPRESSION: 1. Pneumoperitoneum. Small volume free fluid and/or blood products in the pelvis. Presumably postoperative given patient history. 2. Cholelithiasis without findings of acute cholecystitis.
[2023-04-27] MEDS: iohexol 350 mg/mL 500 mL Btl (per mL) IV (20:14)
== END 2023-04-27 21:09 | disposition home or self-care (01) ==
PROVIDERS: Emergency Provider Nurse Practitioner Family; PCP Family Medicine Adult Medicine
DX: N93.9 Abnormal uterine and vaginal bleeding, unspecified (principal); G89.18 Other acute postprocedural pain; R10.84 Generalized abdominal pain; K80.20 Calculus of gallbladder without cholecystitis without obstruction
CPT/HCPCS: 36415; 71046; 74177; 80053; 81001; 85025; 87086; 99285; Q9967

== ENCOUNTER 2023-05-28 00:48 | Emergency (ER) | payer BC, MEDICAID, SELFPAY ==
[2022-07-04 11:18] VITALS: BP 142/89; BMI 44.7
[2023-05-28 00:53] VITALS: BMI 44.9
[2023-05-28 00:55] VITALS: BP 172/112; PULSE 68; RESP 16; TEMP 36.8; O2SAT 98
--- NOTE | 2023-05-28 01:08 | XRR_ITS ---
PROCEDURE INFORMATION: Exam: XR Chest Exam date and time: 05/28/2023 1:10 AM Age: 38 years old Clinical indication: Chest pressure; Patient HX: C/O chest pain; Additional info: Cp TECHNIQUE: Imaging protocol: Radiologic exam of the chest. Views: 1 view. COMPARISON: CR (CHEST, ) 04/27/2023 7:35 PM FINDINGS: Lungs: Unremarkable. No consolidation. Pleural spaces: Unremarkable. No pleural effusion. No pneumothorax. Heart/Mediastinum: Unremarkable. No cardiomegaly. Bones/joints: Unremarkable. XR/XR chest 1V portable [id number] IMPRESSION: No acute findings.
--- NOTE | 2023-05-28 01:08 | ECG_ITS ---
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 Measurements Intervals [place] Rate: 65 P: 13 ID: [id number] QRS: 19 QRSD: 110 T: 12 QT: 418 QTc: 437 Interpretive Statements SINUS RHYTHM Compared to ECG 02/08/2023 20:45:26 No significant changes Electronically Signed On 05-28-2023 19:39:38 [employer] FE[employer] LINE by Agnes Acharya M.D. [id number]
[2023-05-28] MEDS: ondansetron 2 mg/ML SDV 2 mL 4 MG IVP (01:25)
--- NOTE | 2023-05-28 01:25 | ED_ITS ---
HPI - Anxiety 2 General: Chief Complaint: Anxiety Stated Complaint: Emotional Distress Time Seen by Provider: 05/28/23 00:53 History of Present Illness: 38-year-old female who says she has been battling chest discomfort all day. She has been under a lot of stress, and has a history of anxiety and neck. She believes she may have had a panic attack. She has had trouble breathing. No cough. No fever. No other symptoms. She has no history of heart disease Associated symptoms: Deny chills, confusion, fever(s), headache(s), nausea or vomiting Review of Systems 2 Const: Denies: fever(s), chills or body aches Eyes: Denies: change in vision Resp: Denies: productive cough, non-productive cough or wheezing GI: Denies: abdominal pain, nausea, vomiting, diarrhea or hematochezia : Denies: difficulty voiding Skin/Breast: Denies: rash Neuro: Denies: headache(s), weakness in extremities, dizziness or confusion PFSH ED 2 PFSH: Medical History Epidermoid cyst of hand Psychiatric care Insomnia disorder with non-sleep disorder mental comorbidity Ganglion cyst of dorsum of right wrist Bilateral knee pain Severe obstructive sleep apnea-hypopnea syndrome Subcutaneous nodule of chest wall Night terrors, adult Morbid obesity with BMI of 45.0-49.9, adult Infertility 04/15/2014-- Discussed that her inability to get was possibly because of an ovulation caused by PCO S.. given that her is 52 years old with medical problems like diabetes I would also recommend a [id number] evaluation to rule out male factor as a cause for her infertility. I would recommend him getting a sperm count as well. Discussed that I would recommend initial regulation of her period for about 6 months and then we can consider ovulation induction with Clomid. Offered her the option of seeing an infertility specialist which she declines at this point. We will reevaluate her infertility in 6 months. PCOS (polycystic ovarian syndrome) 04/12/19--- Patient came with irregular bleeding-first, who has a history of oligomenorrhea. She refers she was told before that she might have PCOS. Pelvic ultrasound done showed normal uterus and multifolicular ovaries. Bilateral ovaries had several follicles. Discussed that her oligomenorrhea and excess vaginal bleeding when she gets her period as well as increased hair growth noticed on her face were sufficient to give her a diagnosis of PCOS. Discussed the ultrasound shows multifollicular ovaries were suspicious for PCOS. Discussed that since her TSH, prolactin, test was normal and her ultrasound showed no major abnormalities of her uterus and multifollicular ovaries that PCOS was the most likely cause of her irregular menses. I discussed that PCOS was a state of excessive estrogen and androgen levels. Discussed that women with PCOS are at a higher risk of developing hypertension, diabetes, coronary artery disease, elevated cholesterol level, insulin resistance. I discussed that it would be important to screen for these with fasting lipid level as well as two-hour glucose tolerance test. I also discussed that the hormonal imbalance causes her oligomenorrhea and that she was likely having anovulatory cycles. I discussed that the most important thing to do would be weight loss through exercise and diet. I recommend 30 minutes to one hour of exercise 5-6 times a week, low carbohydrate diet. I discussed that women who lost 10-15% of body fat automatically began ovulating and having regular menstrual periods. She refer she does not want to get . I discussed that the unopposed estrogen in patients with PCOS can cause endometrial hyperplasia/cancer. I discussed that it was important to induce regular periods. She agrees with this plan and as she currently does not plan to get we will use control pills to obtain regular periods as well as to prevent . In 6 months if she has lost sufficient weight, we will stop control pills and see if she cycles on her own. Post traumatic stress disorder (PTSD) Surgical History H/O bilateral salpingectomy (~04/25/23) Family History Mother Breast cancer dx age Hypertension Grandmother Hypertension MATERNAL AND PATERNAL Diabetes MATERNAL Grandfather Hypertension MATERNAL AND PATERNAL Heart disease MATERNAL AND PATERNAL Family/Other No problems noted. Other Borderline personality disorder Denies family history of Colon cancer Ovarian cancer Hyperlipidemia Uterine cancer Thyroid disease Stroke Social History (Updated 05/24/23 @ 10:57 by Vicky Zabala RN) Smoking and tobacco/nicotine status: never used tobacco/nicotine Second hand smoke exposure: No Alcohol intake: never Substance/Drug Use: former Former substance use details: marijuana during Adopted: No Caregiver/support person: No Lives independently: Yes Household members: significant other, children and friend(s) Housing: Other Details: [facility] Marital status: Number of children: 1 Number of grandchildren: 0 Highest education level completed: High School Graduate service: No Current occupational status: other Details: trying to get disability Current occupational exposures/hazards: No Pets and animals: Yes Pets & animals: cat(s) and dog(s) Leisure activites: other Leisure activities details: take care of the baby, nap Sexually active: Yes Do you think of yourself as: Straight/Heterosexual Current gender identity: Female Argenis/Worship: Other Special argenis needs: No Agree to transfusion: Yes Female Reproductive History: Para: 1 Spontaneous abortions: No Physical Exam 2 Const: GENERAL APPEARANCE: cooperative and anxious; not ill appearing and not frail appearing HENMT: COMMON NORMALS: normocephalic, atraumatic and Normal external nose present HEAD & SCALP: normocephalic and atraumatic FACE & SINUS: normal facial exam and face symmetric NOSE: Normal external nose present Eye: COMMON NORMALS: Equal, round and reactive pupils present and EOMs intact bilaterally PUPIL: Yes Equal, round and reactive pupils present Neck/C-Spine: GENERAL: Yes trachea midline Chest: CHEST: Yes Symmetrical chest wall rise Resp: COMMON NORMALS: normal respiratory effort, No retractions, No use of accessory muscles and clear to auscultation bilaterally AUSCULTATION: clear to auscultation bilaterally Cardio: COMMON NORMALS: regular rate and regular rhythm RATE: regular rate RHYTHM: regular rhythm GI: COMMON NORMALS: Normal to inspection, nondistended, normoactive bowel sounds present Extremity: COMMON NORMALS: no pedal edema Neuro: KATELYN COMA SCALE: document GCS findings Katelyn coma scale eye opening: Spontaneous Katelyn coma scale verbal response: Orientated Katelyn coma scale motor response: Obey commands [place] coma scale total score: 15 S ENSORY EXAM: Yes extremities (intact) Psych: COMMON NORMALS: speech normal SPEECH: Yes normal speech Skin: COMMON NORMALS: no rashes or lesions noted GENERAL SKIN EXAM: no rashes or lesions noted Course 2 Vital Signs: Vital signs: Vital Signs Temperature 98.3 F 05/28/23 00:55 Pulse Rate 63 05/28/23 02:47 Respiratory Rate 15 05/28/23 01:26 Blood Pressure 140/86 05/28/23 02:47 Pulse Oximetry 99 05/28/23 02:47 MDM - Anxiety Medical Decision Making Blood pressure is improving as patient is following. EKG shows a sinus rhythm with a rate of 65, normal axis, normal intervals, no acute ST wave changes. Chest x-ray is negative. White blood cell count is 12.5, other indices of CBC are normal. She is not . EKG is normal with sinus rhythm, rate of 65, normal axis and intervals and no ST wave changes. Troponin is nondetectable. She will be allowed discharge. Lab Data 05/28/23 01:29 05/28/23 01:29 Radiology Impressions Chest X-Ray 05/28/23 01:08 IMPRESSION: No acute findings. Laboratory Results WBC 12.47 10^3/uL (3.29-11.43) H 05/28/23 01:29 RBC 4.59 10^6/uL (3.85-5.65) 05/28/23 01:29 Hgb 12.20 g/dL (11.27-16.99) 05/28/23 01:29 Hct 39.0 % (36-47) 05/28/23 01:29 MCV 85.0 fl (85-98) 05/28/23 01:29 MCH 26.6 pg (27-33) L 05/28/23 01:29 MCHC 31.3 g/dL (30-55) 05/28/23 01:29 RDW 14.3 % (12.1-15.1) 05/28/23 01:29 Plt Count 266 10^3/cmm (157-399) 05/28/23 01:29 MPV 10.9 fL (7.4-10.4) H 05/28/23 01:29 Neut % (Auto) 65.5 % 05/28/23 01:29 Lymph % (Auto) 24.9 % 05/28/23 01:29 [place] % (Auto) 7.5 % 05/28/23 01:29 Eos % (Auto) 1.4 % 05/28/23 01:29 Baso % (Auto) 0.4 % 05/28/23 01:29 Neut # (Auto) 8.17 10^3/uL (1.8-7.7) H 05/28/23 01:29 Lymph # (Auto) 3.1 10^3/uL (0.8-4.8) 05/28/23 01:29 [place] # (Auto) 0.9 10^3/uL (0.2-0.9) 05/28/23 01:29 Eos # (Auto) 0.2 10^3/uL (0.0-0.8) 05/28/23 01:29 Baso # (Auto) 0.1 10^3/uL (0.0-0.1) 05/28/23 01:29 Nucleated RBC % (auto) 0 % 05/28/23 01:29 Nucleated RBCs # 0.0 /100WBC 05/28/23 01:29 Sodium Cancelled 05/28/23 01:29 Potassium Cancelled 05/28/23 01:29 Chloride Cancelled 05/28/23 01:29 Carbon Dioxide Cancelled 05/28/23 01:29 Anion Gap Cancelled 05/28/23 01:29 BUN Cancelled 05/28/23 01:29 Creatinine Cancelled 05/28/23 01:29 GFR Calculation Cancelled 05/28/23 01:29 Glucose Cancelled 05/28/23 01:29 Calculated Osmolality Cancelled 05/28/23 01:29 Calcium Cancelled 05/28/23 01:29 Total Bilirubin Cancelled 05/28/23 01:29 AST Cancelled 05/28/23 01:29 ALT Cancelled 05/28/23 01:29 Alkaline Phosphatase Cancelled 05/28/23 01:29 Troponin T Baseline < 6 ng/L (0-10) 05/28/23 01:29 Total Protein Cancelled 05/28/23 01:29 Albumin Cancelled 05/28/23 01:29 Globulin Cancelled 05/28/23 01:29 HCG, Qual Negative (Negative) 05/28/23 01:29 All radiology interpretation(s) finalized by discharge Discharge Plan Discharge Patient Disposition: Home Clinical Impression: Acute anxiety, Chest pain Condition: Stable Prescriptions: No Action fluoxetine 40 mg capsule 40 mg PO QAM Qty: 30 1RF Rx Instructions: Take one capsule by mouth every morning with the 20 mg capsule fluoxetine 20 mg capsule 20 mg PO QAM Qty: 30 1RF Rx Instructions: Take one capsule by mouth every morning with the 40 mg capsule propranolol 20 mg tablet 20 mg PO BID PRN (Reason: anxiety) Qty: 60 1RF aripiprazole 2 mg tablet 2 mg PO DAILY Qty: 30 1RF Rx Instructions: Take one tablet daily at bedtime ibuprofen 800 mg tablet 800 mg PO TID PRN (Reason: pain) Qty: 60 0RF acetaminophen 325 mg capsule 325 mg PO Q4H PRN (Reason: fever or pain) Qty: 60 0RF Discharge Orders: Discharge ED (Routine); Ordered 05/28/23 Ordered By: Dani Barba Referrals: Selvin Conrad MD [Primary Care Provider] - 1-3 days Patient Instructions: Chest Pain (ED), Anxiety (ED), Opioid Safety, Pain Management Activity Restrictions/Additional Instructions: See your doctor later this week. Coding Level of Care Code ED Building Illuminating Engineer for Rai Domingo
[2023-05-28 01:26] VITALS: RESP 15
[2023-05-28] MEDS: morphine 4 mg/mL SDV 1 mL IVP (01:26)
[2023-05-28 01:27] VITALS: BP 156/98; PULSE 63; O2SAT 99
[2023-05-28 01:38] LABS: Basophils # 0.1 10^3/uL (0.0-0.1); Basophils % 0.4 %; Eosinophils # 0.2 10^3/uL (0.0-0.8); Eosinophils % 1.4 %; Lymphocytes # 3.1 10^3/uL (0.8-4.8); Lymphocytes % 24.9 %; Mean Corpuscular HGB Conc 31.3 g/dL (30-55); Mean Corpuscular Hemoglobin 26.6 pg (27-33); Mean Platelet Volume 10.9 fL (7.4-10.4); Monocytes # 0.9 10^3/uL (0.2-0.9); Monocytes % 7.5 %; Neutrophils # 8.17 10^3/uL (1.8-7.7); Neutrophils % 65.5 %; Nucleated Red Blood Cells % 0 %; Platelet Count 266 10^3/cmm (157-399); Red Blood Count 4.59 10^6/uL (3.85-5.65); Red Cell Distribution Width 14.3 % (12.1-15.1); White Blood Count 12.47 10^3/uL (3.29-11.43)
[2023-05-28 01:55] LABS: HCG, Serum Qual Negative (Negative); Troponin(5th) Baseline < 6 ng/L (0-10)
[2023-05-28 02:47] VITALS: BP 140/86; PULSE 63; O2SAT 99
== END 2023-05-28 02:49 | disposition home or self-care (01) ==
PROVIDERS: Emergency Provider Emergency Medicine; PCP Family Medicine Adult Medicine
DX: F41.9 Anxiety disorder, unspecified (principal); R07.9 Chest pain, unspecified
CPT/HCPCS: 71045; 84484; 84703; 85025; 93005; 96374; 96375; 99285; J2270; J2405

== ENCOUNTER → 2023-06-17 10:32 | Outpatient (BNVA) | payer BC, MEDICAID, SELFPAY ==
[2022-07-04 11:18] VITALS: BP 142/89; BMI 44.7
== END ==
PROVIDERS: PCP Family Medicine Adult Medicine; Visit Provider Emergency Medicine
DX: R05.9 Cough, unspecified (principal); J45.21 Mild intermittent asthma with (acute) exacerbation; J06.9 Acute upper respiratory infection, unspecified
CPT/HCPCS: 87400

== ENCOUNTER → 2023-06-19 14:46 | Outpatient (BNVA) | payer SELFPAY ==
[2022-07-04 11:18] VITALS: BP 142/89; BMI 44.7
== END ==
PROVIDERS: PCP Family Medicine Adult Medicine; Visit Provider Obstetrics & Gynecology
DX: Z79.899 Other long term (current) drug therapy (principal)
CPT/HCPCS: 80061; 83036

== ENCOUNTER 2023-07-18 08:38 | Day surgery (SDC) | payer BC, MEDICAID, SELFPAY ==
[2022-07-04 11:18] VITALS: BP 142/89; BMI 44.7
[2023-06-30 14:59] VITALS: BP 156/92; BMI 45.2
[2023-07-18] VITALS (13 sets, daily range): BP systolic 103–160; BP diastolic 47–100; PULSE 62–100; RESP 16–18; TEMP 36.1–36.9; O2SAT 92–100; BMI 44.9
[2023-07-18 09:15] LABS: OR HCG Qualitative Urine Negative (Negative)
[2023-07-18] MEDS: sodium chloride 0.9% 1,000 ML 30 ML IV (09:18)
[2023-07-18] MEDS: scopolamine 1.5 Patch 1 PATCH TRANSDERMA (09:20)
[2023-07-18] MEDS: midazolam 1 mg/mL INJ 2 mL 2 MG IVP (09:28)
--- NOTE | 2023-07-18 09:38 | ANES.PREANE2 ---
Pre-Anesthetic Assessment Height/Weight: Height 1.65 m Weight 122.47 kg Temp Pulse Resp BP Pulse Ox O2 Del Method 97.9 F 100 16 160/100 97 Room Air 07/18/23 09:09 07/18/23 09:09 07/18/23 09:09 07/18/23 09:09 07/18/23 09:09 07/18/23 09:04 Operation Date: 07/18/23 10:55 Proposed Procedures p 34016 lap robby K80.20(Not Applicable) - Wolfgang Cornejo DO Familial anesthetic complications: none Last intake: Intake Last Liquid Date 07/17/23 Last Liquid Time 19:00 Last Solid Date 07/17/23 Last Solid Time 19:00 Social No tobacco Exam alert, clear to auscultation bilaterally and regular rate & rhythm Airway Submandibular: within normal limits Cervical ROM: within normal limits Mallampati: Class I Anesthetic Plan ASA status: 3 Other: LUPE noncompliant with CPAP Medications/Allergies Home Medications Medication Instructions Recorded Confirmed Last Taken Type acetaminophen 325 mg capsule 325 mg PO Q4H PRN fever or pain 04/25/23 07/17/23 Unknown Rx #60 caps albuterol sulfate 90 mcg/actuation 2 inh inhalation Q4H PRN shortness 06/17/23 07/17/23 Unknown Rx aerosol inhaler of breath or wheezing #6.7 grams cetirizine 10 mg tablet (Zyrtec) 10 mg PO DAILY #30 tabs 06/17/23 07/17/23 07/17/23 Rx buspirone 15 mg tablet 15 mg PO BID anxiety/panic attacks 06/29/23 07/17/23 07/17/23 Rx #60 tabs pantoprazole 40 mg tablet,delayed 40 mg PO BID 6 weeks #84 tabs 06/30/23 07/17/23 07/17/23 Rx release (Protonix) brexpiprazole 1 mg tablet 1 mg PO DAILY #30 tabs 07/07/23 07/17/23 07/17/23 Rx fluoxetine 20 mg capsule 20 mg PO QAM #30 caps 07/07/23 07/17/23 07/17/23 Rx fluoxetine 40 mg capsule 40 mg PO QAM #30 caps 07/07/23 07/17/23 07/17/23 Rx propranolol 20 mg tablet 20 mg PO BID PRN anxiety #60 tabs 07/07/23 07/17/23 07/17/23 Rx Allergies Allergy/AdvReac Type Severity Reaction Status Date / Time SOYBEAN OIL Allergy Severe ANAPHYLAXIS Uncoded 07/17/23 09:11 Current Medications Generic Name Dose Route Start Last Admin Trade Name Haja PRN Reason Stop Dose Admin Sodium Chloride 1,000 mls @ 30 mls/hr 07/18/23 09:00 07/18/23 09:18 Sodium Chloride 0.9% IV 07/19/23 08:59 30 mls/hr .Q24H ASHLEY Administration Midazolam HCl 2 mg 07/18/23 08:47 07/18/23 09:28 Midazolam 1 Mg/Ml Inj 2 Ml IVP 2 mg Q5M PRN Administration Preop Anxiety PFSH Anesthesia Medical History Generalized anxiety disorder with panic attacks Gall bladder disease Epidermoid cyst of hand Psychiatric care Insomnia disorder with non-sleep disorder mental comorbidity Ganglion cyst of dorsum of right wrist Bilateral knee pain Severe obstructive sleep apnea-hypopnea syndrome Subcutaneous nodule of chest wall Night terrors, adult Morbid obesity with BMI of 45.0-49.9, adult Infertility 04/15/2014-- Discussed that her inability to get was possibly because of an ovulation caused by PCO S.. given that her is 52 years old with medical problems like diabetes I would also recommend a nidn-ks-xbid evaluation to rule out male factor as a cause for her infertility. I would recommend him getting a sperm count as well. Discussed that I would recommend initial regulation of her period for about 6 months and then we can consider ovulation induction with Clomid. Offered her the option of seeing an infertility specialist which she declines at this point. We will reevaluate her infertility in 6 months. PCOS (polycystic ovarian syndrome) 04/12/19--- Patient came with irregular bleeding-first, who has a history of oligomenorrhea. She refers she was told before that she might have PCOS. Pelvic ultrasound done showed normal uterus and multifolicular ovaries. Bilateral ovaries had several follicles. Discussed that her oligomenorrhea and excess vaginal bleeding when she gets her period as well as increased hair growth noticed on her face were sufficient to give her a diagnosis of PCOS. Discussed the ultrasound shows multifollicular ovaries were suspicious for PCOS. Discussed that since her TSH, prolactin, test was normal and her ultrasound showed no major abnormalities of her uterus and multifollicular ovaries that PCOS was the most likely cause of her irregular menses. I discussed that PCOS was a state of excessive estrogen and androgen levels. Discussed that women with PCOS are at a higher risk of developing hypertension, diabetes, coronary artery disease, elevated cholesterol level, insulin resistance. I discussed that it would be important to screen for these with fasting lipid level as well as two-hour glucose tolerance test. I also discussed that the hormonal imbalance causes her oligomenorrhea and that she was likely having anovulatory cycles. I discussed that the most important thing to do would be weight loss through exercise and diet. I recommend 30 minutes to one hour of exercise 5-6 times a week, low carbohydrate diet. I discussed that women who lost 10-15% of body fat automatically began ovulating and having regular menstrual periods. She refer she does not want to get . I discussed that the unopposed estrogen in patients with PCOS can cause endometrial hyperplasia/cancer. I discussed that it was important to induce regular periods. She agrees with this plan and as she currently does not plan to get we will use control pills to obtain regular periods as well as to prevent . In 6 months if she has lost sufficient weight, we will stop control pills and see if she cycles on her own. Post traumatic stress disorder (PTSD) Surgical History H/O bilateral salpingectomy (~04/25/23) Family History Mother Breast cancer dx age Hypertension Grandmother Hypertension MATERNAL AND PATERNAL Diabetes MATERNAL Grandfather Hypertension MATERNAL AND PATERNAL Heart disease MATERNAL AND PATERNAL Family/Other No problems noted. Other Borderline personality disorder Denies family history of Colon cancer Ovarian cancer Hyperlipidemia Uterine cancer Thyroid disease Stroke Social History Smoking and tobacco/nicotine status: never used tobacco/nicotine Second hand smoke exposure: No Alcohol intake: never Adopted: No Caregiver/support person: No Lives independently: Yes Housing: Other Marital status: Number of children: 1 Highest education level completed: High School Graduate Pets and animals: Yes Sexually active: Yes Argenis/Zoroastrian: Other Special argenis needs: No Agree to transfusion: Yes Female Reproductive History Date of last menstrual period: 07/14/23 Para: 1 Spontaneous abortions: No Data Anesthesia Cardiac Studies: No Data to Display
--- NOTE | 2023-07-18 09:45 | W.PM.OPSUD ---
Surgery/Procedure H&P Update DATE OF PROCEDURE: July 18, 2023 DATE H&P PERFORMED: 06/30/23 H&P UPDATE INFORMATION: I have reviewed H&P completed within last 30 days, I have examined patient prior to procedure and No changes to prior documentation PLANNED PROCEDURE: Operation Date: 07/18/23 10:55 Proposed Procedures p 12416 lap robby K80.20(Not Applicable) - Wolfgang Cornejo DO
[2023-07-18] MEDS: ceFAZolin 3,000 MG in sodium chloride 0.9% (plus) 50 ML 100 MG IV (10:11)
[2023-07-18] MEDS: lidocaine-epi 2% 20 mL INJ INJECTION (10:39)
--- NOTE | 2023-07-18 10:59 | P.OP_ITS ---
Operative Report Date of procedure: July 18, 2023 Surgeon: Wolfgang Cornejo DO Brief History: This very pleasant 38-year-old female was diagnosed with symptomatic cholelithiasis. Laparoscopic cholecystectomy was indicated. The risk and benefits were explained and documented. Procedure: Preoperative diagnosis: Symptomatic cholelithiasis Postoperative diagnosis: Same Procedure performed: Laparoscopic cholecystectomy Surgeon: Dr. Wolfgang Cornejo DO Estimated blood loss: 10 mL Specimens: Gallbladder to pathology Complications: None apparent Description of procedure: Patient was wheeled into the operative room and placed on the OR table in a supine position. Abdomen was inspected prepped and draped in usual sterile fashion. Time-out was performed and all present were in agreement. A 15 blade scalp was used to make a stab incision in the left upper quadrant and intra- abdominal insufflation was attempted using a Veress needle. This proved to be difficult and I converted to Optiview entrance with a 5 mm trocar at this location. After localizing the tissue incisions were made and a 5 millimeter trocar was placed into the umbilicus as well as 2 in the right upper quadrant. A 12 millimeter trocar was placed in the epigastrium. There was a small needle hole in the left lobe of the liver from the Veress needle which was cauterized. Less than 5 cc of blood was lost. Gallbladder was grasped and elevated. The triangle of Calot was carefully dissected using blunt dissection and electrocautery until the triangle of Calot clearly identified. The cystic duct was clipped proximally and double clipped distally. The duct was then ligated proximally. The cystic artery was doubly clipped and ligated. The gallbladder was then removed from the liver bed using electrocautery. The gallbladder was removed from the abdomen using an Endo-Catch bag through the epigastric incision. The liver bed was inspected and no bleeding was seen. The abdomen was irrigated and suctioned. All ports removed. Skin was washed and dried. Incisions were closed with 4-0 Monocryl in a subcuticular interrupted fashion. Skin glue was applied. Patient tolerated the procedure well.
[2023-07-18] MEDS: ondansetron 2 mg/ML SDV 2 mL 4 MG IVP ×2 (11:20→11:25)
[2023-07-18] MEDS: fentaNYL 50 mcg/mL INJ 2mL IVP (11:25)
[2023-07-18] MEDS: HYDROmorphone 1 mg/mL INJ 1 mL 0.5 MG IVP (11:35)
[2023-07-18] MEDS: HYDROcodone-acetaminophen 7.5-325 mg Tablet 1 TAB PO (12:28)
== END 2023-07-18 12:40 | disposition home or self-care (01) ==
PROVIDERS: PCP Family Medicine Adult Medicine; Visit Provider Surgery
PROC: 0FT44ZZ Resection of Gallbladder, Percutaneous Endoscopic Approach (ICD-10-PCS; CPT 47562; principal; 2023-07-18 10:45)
DX: K80.10 Calculus of gallbladder with chronic cholecystitis without obstruction (principal); G47.33 Obstructive sleep apnea (adult) (pediatric); Z91.199 Patient's noncompliance with other medical treatment and regimen due to unspecified reason; E66.01 Morbid (severe) obesity due to excess calories; Z68.41 Body mass index [BMI] 40.0-44.9, adult; E28.2 Polycystic ovarian syndrome
CPT/HCPCS: 47562; 81025; 84703; 88304; J0690; J1100; J1170; J1885; J2250; J2405; J2704; J2710; J3010; J3490; J7030

== ENCOUNTER 2023-09-05 05:21 | Day surgery (SDC) | payer BC, MEDICAID, SELFPAY ==
[2023-06-30 14:59] VITALS: BP 156/92; BMI 45.2
[2023-09-05] VITALS (9 sets, daily range): BP systolic 124–155; BP diastolic 73–110; PULSE 72–83; RESP 17–18; TEMP 36.1–36.6; O2SAT 92–99; BMI 49.4
[2023-09-05 06:20] LABS: OR HCG Qualitative Urine Negative (Negative)
[2023-09-05] MEDS: sodium chloride 0.9% 1,000 ML 30 ML IV (06:35)
--- NOTE | 2023-09-05 06:37 | W.PM.OPSUD ---
Surgery/Procedure H&P Update DATE OF PROCEDURE: September 05, 2023 DATE H&P PERFORMED: 08/16/23 H&P UPDATE INFORMATION: I have reviewed H&P completed within last 30 days, I have examined patient prior to procedure and No changes to prior documentation CHANGES TO PREVIOUS DOCUMENTATION: No changes PRIMARY INDICATION FOR PROCEDURE: Mass right medial upper eyelid for excision. PLANNED PROCEDURE: Operation Date: 09/05/23 07:00 Proposed Procedures p 46078 excision of subcutaneous mass of scal R22.9(Not Applicable) - DO maría Morris Excision Facial/Scalp Mass/Lesion(Right) - Gurvinder Vernon MD
--- NOTE | 2023-09-05 06:42 | P.ANESASSM_ITS ---
Pre-Anesthetic Assessment Height/Weight: Height 1.65 m Weight 134.717 kg Temp Pulse Resp BP Pulse Ox O2 Del Method 97.9 F 83 17 155/110 99 Room Air 09/05/23 06:10 09/05/23 06:10 09/05/23 06:10 09/05/23 06:10 09/05/23 06:10 09/05/23 06:11 Operation Date: 09/05/23 07:00 Proposed Procedures p 62292 excision of subcutaneous mass of scal R22.9(Not Applicable) - DO maría Morris Excision Facial/Scalp Mass/Lesion(Right) - Gurvinder Vernon MD Familial anesthetic complications: None Was Beta Pat taken within 24 hours: N/A Was Clonidine taken within 24 hours: N/A Last intake: Intake Last Liquid Date 09/04/23 Last Liquid Time 19:00 Last Solid Date 09/04/23 Last Solid Time 19:00 Social No alcohol and No tobacco Exam alert, oriented x 3, clear to auscultation bilaterally and regular rate & rhythm Airway Mallampati: Class II Dentition: full Pulmonary Sleep Apnea CV/HEM Hypertension GI Gastroesophageal Reflux Disease Metabolic Morbid Obesity and Thyroid Disease PCOS Anesthetic Plan ASA status: 3 Anesthesia: General Risk of > 500 ml blood loss (7ml/kg in children): No Other Pertinent Information Recent sinus drainage - given and completed a course of antibiotics per patient. Denies any fevers or severe malaise and nausea during infection. Feels improved, but still having some sinus drainage. Informed of increased risk of hypoxia/bronchospasm with recent upper resp symptoms/infection. wishes to proceed Medications/Allergies Home Medications Medication Instructions Recorded Confirmed Last Taken Type acetaminophen 325 mg capsule 325 mg PO Q4H PRN fever or pain 04/25/23 09/04/23 Unknown Rx #60 caps albuterol sulfate 90 mcg/actuation 2 inh inhalation Q4H PRN shortness 06/17/23 09/04/23 1 Month Ago Rx aerosol inhaler of breath or wheezing #6.7 grams ~08/06/23 buspirone 15 mg tablet 15 mg PO BID anxiety/panic attacks 06/29/23 09/04/23 09/04/23 Rx #60 tabs brexpiprazole 1 mg tablet 1 mg PO DAILY #30 tabs 07/07/23 09/04/23 09/04/23 Rx fluoxetine 20 mg capsule 20 mg PO QAM #30 caps 07/07/23 09/04/23 09/04/23 Rx fluoxetine 40 mg capsule 40 mg PO QAM #30 caps 07/07/23 09/04/23 09/04/23 Rx propranolol 20 mg tablet 20 mg PO BID PRN anxiety #60 tabs 07/07/23 09/04/23 09/04/23 Rx trazodone 100 mg tablet 100 mg PO .bedtime PRN insomnia 08/18/23 09/04/23 Unknown Rx #30 tabs azithromycin 250 mg tablet See Rx Instructions PO .COMPLEX #6 08/31/23 09/04/23 09/04/23 Rx tabs guaifenesin 600 mg tablet, 600 mg PO BID PRN congestion/cough 08/31/23 09/04/23 09/04/23 Rx extended release 12 hr #20 tabs Allergies Allergy/AdvReac Type Severity Reaction Status Date / Time adhesive Allergy ALGY-Bliste Verified 08/31/23 11:22 r SOYBEAN OIL Allergy Severe ANAPHYLAXIS Uncoded 08/31/23 11:22 Current Medications Generic Name Dose Route Start Last Admin Trade Name Freq PRN Reason Stop Dose Admin Sodium Chloride 1,000 mls @ 30 mls/hr 09/05/23 06:00 09/05/23 06:35 Sodium Chloride 0.9% IV 09/06/23 05:59 30 mls/hr .Q24H ASHLEY Administration PFSH Anesthesia Medical History (Updated 08/31/23 @ 11:48 by Selvin Conrad MD) URI with cough and congestion Generalized anxiety disorder with panic attacks Psychiatric care Insomnia disorder with non-sleep disorder mental comorbidity Ganglion cyst of dorsum of right wrist Bilateral knee pain Severe obstructive sleep apnea-hypopnea syndrome Subcutaneous nodule of chest wall Night terrors, adult Morbid obesity with BMI of 45.0-49.9, adult Infertility 04/15/2014-- Discussed that her inability to get was possibly because of an ovulation caused by PCO S.. given that her is 52 years old with medical problems like diabetes I would also recommend a [id number] evaluation to rule out male factor as a cause for her infertility. I would recommend him getting a sperm count as well. Discussed that I would recommend initial regulation of her period for about 6 months and then we can consider ovulation induction with Clomid. Offered her the option of seeing an infertility specialist which she declines at this point. We will reevaluate her infertility in 6 months. PCOS (polycystic ovarian syndrome) 04/12/19--- Patient came with irregular bleeding-first, who has a history of oligomeno rrhea. She refers she was told before that she might have PCOS. Pelvic ultrasound done showed normal uterus and multifolicular ovaries. Bilateral ovaries had several follicles. Discussed that her oligomenorrhea and excess vaginal bleeding when she gets her period as well as increased hair growth noticed on her face were sufficient to give her a diagnosis of PCOS. Discussed the ultrasound shows multifollicular ovaries were suspicious for PCOS. Discussed that since her TSH, prolactin, test was normal and her ultrasound showed no major abnormalities of her uterus and multifollicular ovaries that PCOS was the most likely cause of her irregular menses. I discussed that PCOS was a state of excessive estrogen and androgen levels. Discussed that women with PCOS are at a higher risk of developing hypertension, diabetes, coronary artery disease, elevated cholesterol level, insulin resistance. I discussed that it would be important to screen for these with fasting lipid level as well as two-hour glucose tolerance test. I also discussed that the hormonal imbalance causes her oligomenorrhea and that she was likely having anovulatory cycles. I discussed that the most important thing to do would be weight loss through exercise and diet. I recommend 30 minutes to one hour of exercise 5-6 times a week, low carbohydrate diet. I discussed that women who lost 10-15% of body fat automatically began ovulating and having regular menstrual periods. She refer she does not want to get . I discussed that the unopposed estrogen in patients with PCOS can cause endometrial hyperplasia/cancer. I discussed that it was important to induce regular periods. She agrees with this plan and as she currently does not plan to get we will use control pills to obtain regular periods as well as to prevent . In 6 months if she has lost sufficient weight, we will stop control pills and see if she cycles on her own. Post traumatic stress disorder (PTSD) Surgical History Hx laparoscopic cholecystectomy 07/18 dr. whitley H/O bilateral salpingectomy (~04/25/23) Family History Mother Breast cancer dx age Hypertension Grandmother Hypertension MATERNAL AND PATERNAL Diabetes MATERNAL Grandfather Hypertension MATERNAL AND PATERNAL Heart disease MATERNAL AND PATERNAL Family/Other No problems noted. Other Borderline personality disorder Denies family history of Colon cancer Ovarian cancer Hyperlipidemia Uterine cancer Thyroid disease Stroke Social History Smoking and tobacco/nicotine status: never used tobacco/nicotine Second hand smoke exposure: No Alcohol intake: never Adopted: No Caregiver/support person: No Lives independently: Yes Housing: Other Marital status: Number of children: 1 Highest education level completed: High School Graduate Pets and animals: Yes Sexually active: Yes Argenis/Zoroastrianism: Other Special argenis needs: No Agree to transfusion: Yes Female Reproductive History Date of last menstrual period: 08/05/23 Para: 1 Spontaneous abortions: No Data Anesthesia Cardiac Studies: No Data to Display
--- NOTE | 2023-09-05 06:58 | P.HP_ITS ---
Providers/Chief Complaint Primary Care Provider: Selvin Conrad MD Chief Complaint: R22.9 History of Present Illness Tashi Duarte is a 38 year old female Review of Systems General: Reports: 10 or more systems reviewed and unremarkable except in HPI and below Medications/Allergies Home Medications Medication Instructions Recorded Confirmed Last Taken Type acetaminophen 325 mg capsule 325 mg PO Q4H PRN fever or pain 04/25/23 09/04/23 Unknown Rx #60 caps albuterol sulfate 90 mcg/actuation 2 inh inhalation Q4H PRN shortness 06/17/23 09/04/23 1 Month Ago Rx aerosol inhaler of breath or wheezing #6.7 grams ~08/06/23 buspirone 15 mg tablet 15 mg PO BID anxiety/panic attacks 06/29/23 09/04/23 09/04/23 Rx #60 tabs brexpiprazole 1 mg tablet 1 mg PO DAILY #30 tabs 07/07/23 09/04/23 09/04/23 Rx fluoxetine 20 mg capsule 20 mg PO QAM #30 caps 07/07/23 09/04/23 09/04/23 Rx fluoxetine 40 mg capsule 40 mg PO QAM #30 caps 07/07/23 09/04/23 09/04/23 Rx propranolol 20 mg tablet 20 mg PO BID PRN anxiety #60 tabs 07/07/23 09/04/23 09/04/23 Rx trazodone 100 mg tablet 100 mg PO .bedtime PRN insomnia 08/18/23 09/04/23 Unknown Rx #30 tabs azithromycin 250 mg tablet See Rx Instructions PO .COMPLEX #6 08/31/23 09/04/23 09/04/23 Rx tabs guaifenesin 600 mg tablet, 600 mg PO BID PRN congestion/cough 08/31/23 09/04/23 09/04/23 Rx extended release 12 hr #20 tabs Allergies Allergy/AdvReac Type Severity Reaction Status Date / Time adhesive Allergy ALGY-Bliste Verified 08/31/23 11:22 r SOYBEAN OIL Allergy Severe ANAPHYLAXIS Uncoded 08/31/23 11:22 PFSH Acute 2 PFSH: Medical History (Updated 08/31/23 @ 11:48 by Selvin Conrad MD) URI with cough and congestion Generalized anxiety disorder with panic attacks Psychiatric care Insomnia disorder with non-sleep disorder mental comorbidity Ganglion cyst of dorsum of right wrist Bilateral knee pain Severe obstructive sleep apnea-hypopnea syndrome Subcutaneous nodule of chest wall Night terrors, adult Morbid obesity with BMI of 45.0-49.9, adult Infertility 04/15/2014-- Discussed that her inability to get was possibly because of an o vulation caused by PCO S.. given that her is 52 years old with medical problems like diabetes I would also recommend a [id number] evaluation to rule out male factor as a cause for her infertility. I would recommend him getting a sperm count as well. Discussed that I would recommend initial regulation of her period for about 6 months and then we can consider ovulation induction with Clomid. Offered her the option of seeing an infertility specialist which she declines at this point. We will reevaluate her infertility in 6 months. PCOS (polycystic ovarian syndrome) 04/12/19--- Patient came with irregular bleeding-first, who has a history of oligomenorrhea. She refers she was told before that she might have PCOS. Pelvic ultrasound done showed normal uterus and multifolicular ovaries. Bilateral ovaries had several follicles. Discussed that her oligomenorrhea and excess vaginal bleeding when she gets her period as well as increased hair growth noticed on her face were sufficient to give her a diagnosis of PCOS. Discussed the ultrasound shows multifollicular ovaries were suspicious for PCOS. Discussed that since her TSH, prolactin, test was normal and her ultrasound showed no major abnormalities of her uterus and multifollicular ovaries that PCOS was the most likely cause of her irregular menses. I discussed that PCOS was a state of excessive estrogen and androgen levels. Discussed that women with PCOS are at a higher risk of developing hypertension, diabetes, coronary artery disease, elevated cholesterol level, insulin resistance. I discussed that it would be important to screen for these with fasting lipid level as well as two-hour glucose tolerance test. I also discussed that the hormonal imbalance causes her oligomenorrhea and that she was likely having anovulatory cycles. I discussed that the most important thing to do would be weight loss through exercise and diet. I recommend 30 minutes to one hour of exercise 5-6 times a week, low carbohydrate diet. I discussed that women who lost 10-15% of body fat automatically began ovulating and having regular menstrual periods. She refer she does not want to get . I discussed that the unopposed estrogen in patients with PCOS can cause endometrial hyperplasia/cancer. I discussed that it was important to induce regular periods. She agrees with this plan and as she currently does not plan to get we will use control pills to obtain regular periods as well as to prevent . In 6 months if she has lost sufficient weight, we will stop control pills and see if she cycles on her own. Post traumatic stress disorder (PTSD) Surgical History Hx laparoscopic cholecystectomy 07/18 dr. whitley H/O bilateral salpingectomy (~04/25/23) Family History Mother Breast cancer dx age Hypertension Grandmother Hypertension MATERNAL AND PATERNAL Diabetes MATERNAL Grandfather Hypertension MATERNAL AND PATERNAL Heart disease MATERNAL AND PATERNAL Family/Other No problems noted. Other Borderline personality disorder Denies family history of Colon cancer Ovarian cancer Hyperlipidemia Uterine cancer Thyroid disease Stroke Social History Smoking and tobacco/nicotine status: never used tobacco/nicotine Second hand smoke exposure: No Alcohol intake: never Adopted: No Caregiver/support person: No Lives independently: Yes Housing: Other Marital status: Number of children: 1 Highest education level completed: High School Graduate Pets and animals: Yes Sexually active: Yes Argenis/Sikh: Other Special argenis needs: No Agree to transfusion: Yes Female Reproductive History: Date of last menstrual period: 08/05/23 Para: 1 Spontaneous abortions: No Vitals/I&O/Wt Last Vital Signs Temp 97.9 F 09/05/23 06:10 Pulse 83 09/05/23 06:10 Resp 17 09/05/23 06:10 BP 155/110 09/05/23 06:10 Pulse Ox 99 09/05/23 06:10 O2 Del Method Room Air 09/05/23 06:11 Weight last 48 hrs Weight 297 lb A&P Assessment and plan (1) Subcutaneous mass: Plan Excision of subcutaneous mass of the scalp Attestations Medical Necessity Statement*: Home Coding Level of Care Code Acute Code for Chg Fwd Diagnoses Subcutaneous mass R22.9
[2023-09-05] MEDS: ceFAZolin 2,000 MG in sodium chloride 0.9% (plus) 50 ML 100 MG IV (07:02)
[2023-09-05] MEDS: ceFAZolin 1,000 MG in sodium chloride 0.9% (plus) 50 ML 100 MG IV (07:02)
[2023-09-05] MEDS: lidocaine-epi 2% 1.7mL Cartridge (OR Only) 1.69999999999999996 ML XX (07:34)
--- NOTE | 2023-09-05 07:40 | P.OP_ITS ---
Operative Report Date of procedure: September 05, 2023 Pre-op diagnosis: Right medial upper eyelid lesion/mass Post-op diagnosis: Same Post-op findings: Irregular jimenez lesion right medial upper eyelid extending beyond medial canthus onto the perinasal tissue. Excision length 1 cm Procedure done: Excision of right medial upper eyelid lesion/mass with subcuticular closure and repair Implants: No implants Specimens removed/disposition: Lesion right medial upper eyelid Pathology: Same Surgeon: Gurvinder Vernon MD Anesthesia: General and Local Estimated blood loss: 5 mL Complications: No complications encountered Findings: Less than 1 cm irregular jimenez mass of the medial upper eyelid just above the eyelash area. This was approximately 2 mm in width. It extended past the medial canthus onto the perinasal tissue. No erythema. No ulceration. Was bothering the patient in regards to medial field of vision. Brief History: 38-year-old female patient presents to the operating room today to undergo excision of a scalp lesion under the direction of Dr. Wolfgang Cornejo. In addition she has a right medial upper eyelid mass/lesion that is bothering her with her field of vision medially. Therefore it was advised to have this excised under the same anesthesia. The procedure its risks and complications were explained in detail. These risks included bleeding and infection and numbness and scarring and bruising and swelling and potential need for additional treatment as well as allergic reaction. Anesthetic risks were also discussed. With these things understood informed consent was granted and witnessed. Procedure: Description of procedure: The patient was placed on the operating table in the supine position. Adequate general endotracheal tube anesthesia was obtained. Patient was then repositioned into a semirecumbent position tilting her head slightly to the right side. The area had sign the site noted on the right medial upper eyelid. This was cleansed with alcohol wipe. After that had dried an injection of the upper medial eyelid and perinasal tissue was accomplished utilizing 1.7 mL of 2% Xylocaine with 1-100,000 epinephrine. Then the area was prepped with ChloraPrep taking care to make sure that not got into the eye itself. This was allowed to dry for at least 3 minutes. Then the patient was draped in the usual fashion. The lesion was excised with a 15 blade incorporating a small amount amount of surrounding well-appearing skin. The length of the incision was 1 cm and somewhat curvilinear as it extended for the medial upper eyelid/artery and onto the perinasal tissue. Once excised this was sent for pathology for permanent section only. Then the area was checked for bleeding. Bipolar cautery was used to obtain hemostasis medially. Then a subcuticular 6-0 Prolene was used to close the skin. After period of being ex cellent closure with good approximation no sign of any bleeding the area was cleansed with saline and then Neosporin ointment was applied to the incision. The drapes were removed. Patient was then returned to anesthesia Continue under the care of Dr. Cornejo to proceed with the scalp mass excision. Estimated blood loss for this portion of the procedure was 5 mL. She remained under anesthesia in stable condition.
[2023-09-05] MEDS: lidocaine-epi 2% PF 1:200,000 20 mL SDV 10 ML XX (07:57)
[2023-09-05] MEDS: neomycin-poly-bacitracin oint 28 gm 2 APPLIC TOPICAL (08:00)
--- NOTE | 2023-09-05 08:11 | PM.OP ---
Operative Report Date of procedure: September 05, 2023 Pre-op diagnosis: Subcutaneous mass of scalp Post-op diagnosis: same Procedure done: Excision of subcutaneous mass of scalp measuring 1.5 cm in greatest diameter Implants: None Specimens removed/disposition: Elliptical scalp excision with subcutaneous mass Surgeon: Wolfgang Cornejo DO Anesthesia: General and Local Estimated blood loss (mL): 5 Complications: None apparent Brief History: This very pleasant 38-year-old female presented my office with a subcutaneous mass of her scalp that was painful and enlarging. She desired excision. The risk and benefits of excision of subcutaneous mass of scalp were explained and documented. Procedure: General tracheal ovation was achieved by department anesthesia. Prior to my procedure a right upper eyelid mass was removed by ENT. A timeout was performed. All present were in agreement. The scalp subcutaneous mass was shaved and the area was inspected prepped and draped in usual sterile fashion. 2% lidocaine with epinephrine was used to anesthetize the skin. A 15 blade scalpel was used to make a 1.5 cm elliptical excision. Bovie cautery was then used to carefully dissect out a 1.5 cm cystic subcutaneous structure. Specimen was passed off. Hemostasis was achieved electrocautery. Skin was approximated with 4-0 nylon in a simple interrupted fashion. Triple antibiotic was applied. Patient tolerated procedure well.
--- NOTE | 2023-09-05 09:03 | SUR.PHASEII ---
After arrival to Post op patient ambulated with assistance to restroom.
[2023-09-05] MEDS: HYDROcodone-acetaminophen 5-325 mg Tablet 1 TAB PO (09:05)
--- NOTE | 2023-09-05 09:25 | ANE.PACU2 ---
Inpatient post-anesthesia follow up: Airway intact: Yes Vital signs: Temperature 97.7 F Pulse Rate 74 Respiratory Rate 17 Blood Pressure 145/89 Pulse Oximetry 97 Oxygen Delivery Me thod Room Air Oxygen Flow Rate Fraction of Inspir ed Oxygen Hydration adequate: Yes Nausea and vomiting: No Pain level: 1 Mental status: Baseline
== END 2023-09-05 09:22 | disposition home or self-care (01) ==
PROVIDERS: Otolaryngology; PCP Family Medicine Adult Medicine; Visit Provider Surgery
PROC: (CPT 11422; principal; 2023-09-05 07:00)
DX: L72.11 Pilar cyst (principal); E66.01 Morbid (severe) obesity due to excess calories; Z68.42 Body mass index [BMI] 45.0-49.9, adult; E28.2 Polycystic ovarian syndrome; G47.30 Sleep apnea, unspecified; K21.9 Gastro-esophageal reflux disease without esophagitis
CPT/HCPCS: 11422; 81025; 84703; 88304; 88307; A4216; J0690; J1100; J1885; J2405; J2704; J3010; J7030

== ENCOUNTER → 2023-09-08 13:01 | Outpatient (BNVA) | payer BC, MEDICAID, SELFPAY ==
[2023-06-30 14:59] VITALS: BP 156/92; BMI 45.2
== END ==
PROVIDERS: PCP Family Medicine Adult Medicine; Visit Provider Emergency Medicine
DX: J02.9 Acute pharyngitis, unspecified (principal); J20.8 Acute bronchitis due to other specified organisms; B96.89 Other specified bacterial agents as the cause of diseases classified elsewhere
CPT/HCPCS: 87071; 87880

== ENCOUNTER → 2023-12-26 09:26 | Outpatient (BNVA) | payer BC, MEDICAID, SELFPAY ==
[2023-10-06 11:37] VITALS: BP 156/92; BMI 45.2
== END ==
PROVIDERS: PCP Family Medicine Adult Medicine; Referring Provider Family Medicine Adult Medicine; Visit Provider Physician Assistant
DX: M25.561 Pain in right knee (principal); M25.562 Pain in left knee; M17.0 Bilateral primary osteoarthritis of knee; G89.29 Other chronic pain
CPT/HCPCS: 73560; 73565

== ENCOUNTER → 2024-01-04 09:31 | Outpatient (BNVA) | payer BC, SELFPAY ==
[2023-10-06 11:37] VITALS: BP 156/92; BMI 45.2
== END ==
PROVIDERS: PCP Family Medicine Adult Medicine; Visit Provider Nurse Practitioner Family
DX: R50.9 Fever, unspecified (principal); J06.9 Acute upper respiratory infection, unspecified
CPT/HCPCS: 87426

== ENCOUNTER → 2024-01-12 11:40 | Outpatient (BNVA) | payer BC, MEDICAID, SELFPAY ==
[2023-10-06 11:37] VITALS: BP 156/92; BMI 45.2
== END ==
PROVIDERS: PCP Family Medicine Adult Medicine; Visit Provider Family Medicine Adult Medicine
DX: E03.9 Hypothyroidism, unspecified (principal); F60.3 Borderline personality disorder; G47.33 Obstructive sleep apnea (adult) (pediatric); Z68.43 Body mass index [BMI] 50.0-59.9, adult
CPT/HCPCS: 80053; 84443; 85025

== ENCOUNTER → 2024-02-13 11:21 | Outpatient (BNVA) | payer BC, SELFPAY ==
[2023-10-06 11:37] VITALS: BP 156/92; BMI 45.2
== END ==
PROVIDERS: PCP Family Medicine Adult Medicine
DX: R30.0 Dysuria (principal); R30.9 Painful micturition, unspecified
CPT/HCPCS: 81000; 87086

== ENCOUNTER → 2024-02-15 15:00 | Outpatient (BNVA) | payer BC, SELFPAY ==
[2023-10-06 11:37] VITALS: BP 156/92; BMI 45.2
== END ==
PROVIDERS: PCP Family Medicine Adult Medicine; Visit Provider Nurse Practitioner
DX: R39.9 Unspecified symptoms and signs involving the genitourinary system (principal)
CPT/HCPCS: 81000

== ENCOUNTER 2024-03-20 17:21 | Emergency (ER) | payer BC, MEDICAID, SELFPAY ==
[2023-10-06 11:37] VITALS: BP 156/92; BMI 45.2
[2024-03-20 17:28] VITALS: BP 167/116; PULSE 94; RESP 15; TEMP 37; O2SAT 95; BMI 51.5
[2024-03-20 18:44] VITALS: BP 168/114; PULSE 84; RESP 16; O2SAT 97
--- NOTE | 2024-03-20 18:48 | ED_ITS ---
HPI - General Adult 2 General: Chief complaint: General Medical Stated complaint: Dizzy, Lighthead, Weakness Time Seen by Provider: 03/20/24 18:39 History of Present Illness: 39-year-old female with history of deprko leal who presents emergency room with complaints for about a month now. Says this started ever since she started her antidepressant. She discontinued it a few days ago. She is on duloxetine. She says it has been causing her to have headaches. Lightheadedness weakness and dizziness. No chest pain. No fevers. No altered mental status. No focal motor deficits. Related Data Previous Rx's Medication Instructions Recorded acetaminophen 325 mg capsule 325 mg PO Q4H PRN fever or pain 04/25/23 #60 caps albuterol sulfate 90 mcg/actuation 2 inh inhalation Q4H PRN shortness 06/17/23 aerosol inhaler of breath or wheezing #6.7 grams sumatriptan succinate 25 mg tablet See Rx Instructions PO .COMPLEX 10/25/23 #10 tabs medial inspector and unloader brace #1 ea 12/26/23 left knee medial inspector and unloader brace #1 ea 12/27/23 oxybutynin chloride 10 mg 10 mg PO DAILY incontinence #30 01/12/24 tablet,extended release 24 hr tabs propranolol 20 mg tablet 20 mg PO BID PRN anxiety #60 tabs 02/05/24 mupirocin 2 % topical ointment 1 applic topical BID 3 days #15 02/28/24 grams duloxetine 30 mg capsule,delayed 30 mg PO .q am #30 caps 03/18/24 release Allergies Allergy/AdvReac Type Severity Reaction Status Date / Time adhesive Allergy ALGY-Bliste Verified 03/05/24 10:38 r SOYBEAN OIL Allergy Severe ANAPHYLAXIS Uncoded 03/05/24 10:38 Review of Systems 2 Narrative: Constitutional symptoms: Negative except as documented in HPI. Skin symptoms: Negative except as documented in HPI. Eye symptoms: Negative except as documented in HPI. ENMT symptoms: Negative except as documented in HPI. Respiratory symptoms: Negative except as documented in HPI. Cardiovascular symptoms: Negative except as documented in HPI. Gastrointestinal symptoms: Negative except as documented in HPI. Genitourinary symptoms: Negative except as documented in HPI. Musculoskeletal symptoms: Negative except as documented in HPI. Neurologic symptoms: Negative except as documented in HPI. Psychiatric symptoms: Negative except as documented in HPI. Endocrine symptoms: Negative except as documented in HPI. [facility] ED 2 [facility]: Medical History (Updated 03/20/24 @ 20:15 by Cassy Clayton MD) Stress incontinence in female BMI 50.0-59.9, adult Chronic pain of both knees Migraine Constipation by delayed colonic transit Atypical squamous cell changes of undetermined significance (ASCUS) on cervical cytology with positive high risk human papilloma virus (HPV) Lesion of right upper eyelid Generalized anxiety disorder with panic attacks Psychiatric care Insomnia disorder with non-sleep disorder mental comorbidity Ganglion cyst of dorsum of right wrist Severe obstructive sleep apnea-hypopnea syndrome Night terrors, adult Infertility 04/15/2014-- Discussed that her inability to get was possibly because of an ovulation caused by PCO S.. given that her is 52 years old with medical problems like diabetes I would also recommend a [id number] evaluation to rule out male factor as a cause for her infertility. I would recommend him getting a sperm count as well. Discussed that I would recommend initial regulation of her period for about 6 months and then we can consider ovulation induction with Clomid. Offered her the option of seeing an infertility specialist which she declines at this point. We will reevaluate her infertility in 6 months. PCOS (polycystic ovarian syndrome) 04/12/19--Patient came with irregular bleeding-first, who has a history of oligomenorrhea. Pelvic ultrasound done showed normal uterus and multifolicular ovaries. Bilateral ovaries had several follicles. Discussed that her oligomenorrhea and excess vaginal bleeding when she gets her period as well as increased hair growth noticed on her face were sufficient to give her a diagnosis of PCOS. Post traumatic stress disorder (PTSD) Surgical History (Updated 03/04/24 @ 08:55 by Wolfgang Cornejo DO) Hx of excision of mass Excision of subcutaneous mass of scalp measuring 1.5 cm in greatest diameter- 09/05/23 Dr Cornejo Hx laparoscopic cholecystectomy 07/18/23 Dr. Cornejo H/O bilateral salpingectomy (~04/25/23) Family History Mother Breast cancer dx age Hypertension Grandmother Hypertension MATERNAL AND PATERNAL Diabetes MATERNAL Grandfather Hypertension MATERNAL AND PATERNAL Heart disease MATERNAL AND PATERNAL Family/Other No problems noted. Other Borderline personality disorder Denies family history of Colon cancer Ovarian cancer Hyperlipidemia Uterine cancer Thyroid disease Stroke Social History Smoking and tobacco/nicotine status: never used tobacco/nicotine Second hand smoke exposure: No Alcohol intake: never Adopted: No Caregiver/support person: No Lives independently: Yes Housing: Other Marital status: Number of children: 1 Highest education level completed: High School Graduate Pets and animals: Yes Sexually active: Yes Argenis/Nondenominational: Other Special argenis needs: No Agree to transfusion: Yes Female Reproductive History: Para: 1 Spontaneous abortions: No Physical Exam 2 Narrative: EXAM NARRATIVE: General: Alert, no acute distress. Skin: Warm, dry. Head: Normocephalic, atraumatic. Neck: Supple, trachea midline. Eye: Extraocular movements are intact. Ears, nose, mouth and throat: mucosa moist. Cardiovascular: Regular, Normal peripheral perfusion. Respiratory: Lungs are clear to auscultation, respirations are non-labored, breath sounds are equal, Symmetrical chest wall expansion. Gastrointestinal: Soft, Nontender, Non distended Musculoskeletal: Normal ROM, no deformity. Neurological: Alert and oriented, No focal neurological deficit observed. Psychiatric: Cooperative, appropriate mood & affect. Course 2 Vital Signs: Vital signs: Vital Signs Temperature 98.6 F 03/20/24 17:28 Pulse Rate 84 03/20/24 19:00 Respiratory Rate 16 03/20/24 18:44 Blood Pressure 171/85 03/20/24 19:00 Pulse Oximetry 98 03/20/24 19:00 Oxygen Delivery Me thod Room Air 03/20/24 19:00 MDM - General Adult Medical Decision Making Medical decision making: Differential diagnosis including but not limited to and based on the above HPI, review of systems and physical exam: Will rule out any kind of laboratory abnormalities. Sounds like this may be a result of her antidepressant. If there is no emergent findings she will need to continue workup with her prescribing provider. Orders placed to evaluate differential diagnosis based on the above differential, HPI and physical exam Lab Review: Laboratory results were reviewed and interpreted by myself the emergency room physician. White count is 12.7. Hemoglobin is 12. Platelets 330. Urinalysis is negative for infection. [place] flu and RSV are negative. No renal failure. I reviewed the patient's medical record. Reexamination: Patient remained stable. No increased work of breathing. No altered mental status. No focal motor deficits. Assessment and plan: Adverse medication reaction Headache - Discharged home - Discussed plan with patient. Answered any questions. - Evaluation and treatment of this problem were appropriate in the emergency setting. Lab Data 03/20/24 19:03/20/24: Laboratory Results WBC 12.71 10^3/uL (3.29-11.43) H 03/20/24 19: RBC 4.72 10^6/uL (3.85-5.65) 03/20/24: Hgb 12.00 g/dL (11.27-16.99) 03/20/24: Hct 39.0 % (36-47) 03/20/24: MCV 82.6 fl (85-98) L 03/20/24: MCH 25.4 pg (27-33) L 03/20/24: MCHC 30.8 g/dL (30-55) 03/20/24: RDW 15.4 % (12.1-15.1) H 03/20/24: Plt Count 330 10^3/cmm (157-399) 03/20/24: MPV 10.5 fL (7.4-10.4) H 03/20/24: Neut % (Auto) 60.1 % 03/20/24: Lymph % (Auto) 28.8 % 03/20/24: Cross % (Auto) 8.2 % 03/20/24: Eos % (Auto) 1.6 % 03/20/24: Baso % (Auto) 0.6 % 03/20/24: Neut # (Auto) 7.65 10^3/uL (1.8-7.7) 03/20/24: Lymph # (Auto) 3.7 10^3/uL (0.8-4.8) 03/20/24: Cross # (Auto) 1.0 10^3/uL (0.2-0.9) H 03/20/24: Eos # (Auto) 0.2 10^3/uL (0.0-0.8) 03/20/24: Baso # (Auto) 0.1 10^3/uL (0.0-0.1) 03/20/24 19:26 Nucleated RBC % (auto) 0 % 03/20/24 19:26 Nucleated RBCs # 0.0 /100WBC 03/20/24 19:26 Sodium 135 mmol/L (136-145) L 03/20/24 19:26 Potassium 4.0 mmol/L (3.5-5.1) 03/20/24 19:26 Chloride 104 mmol/L (98-107) 03/20/24 19:26 Carbon Dioxide 24 mmol/L (22-29) 03/20/24 19:26 Anion Gap 11.0 (5-19) 03/20/24 19:26 BUN 11 mg/dL (6-20) 03/20/24 19:26 Creatinine 0.7 mg/dL (0.5-0.9) 03/20/24 19:26 GFR Calculation 93.2 mL/min (90-130) 03/20/24 19:26 Glucose 95 mg/dL (65-115) 03/20/24 19:26 Calculated Osmolality 279 mOsm/kg (285-295) L 03/20/24 19:26 Calcium 8.5 mg/dL (8.5-10.5) 03/20/24 19:26 Total Bilirubin 0.2 mg/dL (0.15-1.2) 03/20/24 19:26 AST 17 U/L (0-32) 03/20/24 19:26 ALT 27 U/L (0-33) 03/20/24 19:26 Alkaline Phosphatase 112 U/L (35-105) H 03/20/24 19:26 Total Protein 7.0 g/dL (6.6-8.7) 03/20/24 19:26 Albumin 3.7 g/dL (3.5-5.2) 03/20/24 19:26 Globulin 3.3 g/dL (1.3-4.6) 03/20/24 19:26 Urine Color Yellow (Yellow) 03/20/24 18:49 Urine Appearance Cloudy (CLEAR) A 03/20/24 18:49 Urine pH 7.0 (5-7) 03/20/24 18:49 Ur Specific [place] 1.024 (1.005-1.030) 03/20/24 18:49 Urine Protein Negative (Negative) 03/20/24 18:49 Urine Glucose (UA) Negative (Normal) 03/20/24 18:49 Urine Ketones Negative (Negative) 03/20/24 18:49 Urine Blood Negative (Negative) 03/20/24 18:49 Urine Nitrate Negative (Negative) 03/20/24 18:49 Urine Bilirubin Negative (Negative) 03/20/24 18:49 Urine Urobilinogen 1.0 mg/dL (Negative) 03/20/24 18:49 Ur Leukocyte Esterase Negative (Negative) 03/20/24 18:49 Urine RBC 0-2 /hpf (0-2) 03/20/24 18:49 Urine WBC 0-5 /hpf (0-5) 03/20/24 18:49 Ur Squamous Epith Cells 0-5 /hpf (0-5) 03/20/24 18:49 Amorphous Sediment Not Reportable 03/20/24 18:49 Urine Bacteria None seen /hpf (NONE) 03/20/24 18:49 Hyaline Casts 0.40 /lpf 03/20/24 18:49 Coronavirus (PCR) Negative (Negative) 03/20/24 18:49 Influenza A (PCR) Negative (Negative) 03/20/24 18:49 Influenza Type B (PCR) Negative (Negative) 03/20/24 18:49 RSV (PCR) Negative (Negative) 03/20/24 18:49 No radiology studies performed this visit Discharge Plan Discharge Patient Disposition: Home Clinical Impression: Malaise, Headache, Medication reaction Condition: Stable Prescriptions: No Action albuterol sulfate 90 mcg/actuation HFA aerosol inhaler 2 inh inhalation Q4H PRN (Reason: shortness of breath or wheezing) Qty: 6.7 0RF propranolol 20 mg tablet 20 mg PO BID PRN (Reason: anxiety) Qty: 60 1RF Rx Instructions: Take one tablet twice a day, if needed, for anxiety (DME) medial inspector and unloader brace See Rx Instructions .Route .MEDSUPPLY Qty: 1 0RF Rx Instructions: As directed oxybutynin chloride 10 mg tablet extended release 24hr 10 mg PO DAILY Qty: 30 5RF sumatriptan succinate 25 mg tablet See Rx Instructions PO .COMPLEX Qty: 10 0RF Rx Instructions: take 1 tab at onset of headache; if no relief may repeat 1 tab after at least 2 hrs; max = 4 tabs/24 hr PO mupirocin 2 % ointment 1 applic topical BID 3 Days Qty: 15 0RF (DME) left knee medial inspector and unloader brace See Rx Instructions .Route .MEDSUPPLY Qty: 1 0RF Rx Instructions: As directed duloxetine 30 mg capsule,delayed release(DR/EC) 30 mg PO .q am Qty: 30 1RF Rx Instructions: Take one capsule by mouth every morning; stop 40 mg dose acetaminophen 325 mg capsule 325 mg PO Q4H PRN (Reason: fever or pain) Qty: 60 0RF Hold Instructions: Resume on 09/10/23. Discharge Orders: Discharge ED (Routine); Ordered 03/20/24 Ordered By: Cassy Clayton Referrals: Selvin Conrad MD [Primary Care Provider] - Discharge Diet: Usual diet Discharge Activity: Increase activity as tolerated Activity Restrictions/Additional Instructions: Thank you for choosing [facility] for your healthcare needs today. Please realize this is an emergency room and that we are providing you with a medical screening exam and this may not be complete and all inclusive of all the testing and or work up that you may need to determine your ailment or severity of your illness. You have been screened and evaluated and felt safe for discharge. Health conditions do change or evolve sometimes and as such it is important that you follow up with your Primary Doctor to be re checked, 3-5 days is a general good time frame for follow up. You are always welcome to return to the ED for re assessment if your symptoms are worsening or you have new concerns Coding Level of Care Code ED Ux Manager for Rai Domingo
[2024-03-20 19:00] VITALS: BP 171/85; PULSE 84; O2SAT 98
[2024-03-20 19:09] LABS: Bilirubin Urine Negative (Negative); Blood Urine Negative (Negative); Glucose Urine UA Negative (Normal); Ketones Urine Negative (Negative); Leukocyte Esterase Urine Negative (Negative); Nitrate Urine Negative (Negative); Protein Urine Negative (Negative); Specific Gravity, Urine 1.024 (1.005-1.030); Urine Appearance Cloudy (CLEAR); Urine Color Yellow (Yellow)
[2024-03-20 19:14] LABS: Bacteria Urine None Seen /hpf; RBC Urine 0-2 /hpf (0-2); Squamous Epithelial Cell Urine 0-5 /hpf (0-5); WBC Urine 0-5 /hpf (0-5)
[2024-03-20 19:39] LABS: Basophils # 0.1 10^3/uL (0.0-0.1); Basophils % 0.6 %; Eosinophils # 0.2 10^3/uL (0.0-0.8); Eosinophils % 1.6 %; Lymphocytes # 3.7 10^3/uL (0.8-4.8); Lymphocytes % 28.8 %; Mean Corpuscular HGB Conc 30.8 g/dL (30-55); Mean Corpuscular Hemoglobin 25.4 pg (27-33); Mean Corpuscular Volume 82.6 fl (85-98); Mean Platelet Volume 10.5 fL (7.4-10.4); Monocytes % 8.2 %; Neutrophils # 7.65 10^3/uL (1.8-7.7); Neutrophils % 60.1 %; Nucleated Red Blood Cells % 0 %; Platelet Count 330 10^3/cmm (157-399); Red Blood Count 4.72 10^6/uL (3.85-5.65); Red Cell Distribution Width 15.4 % (12.1-15.1); White Blood Count 12.71 10^3/uL (3.29-11.43)
[2024-03-20 19:45] LABS: Covid PCR NEGATIVE (Negative); Influenza A NEGATIVE (Negative); Influenza B NEGATIVE (Negative); Respiratory Syncytial Virus Ce NEGATIVE (Negative)
[2024-03-20 20:00] VITALS: BP 182/102; O2SAT 98
[2024-03-20 20:02] LABS: Alanine Aminotransferase 27 U/L (0-33); Albumin Level 3.7 g/dL (3.5-5.2); Alkaline Phosphatase 112 U/L (35-105); Aspartate Amino Transferase 17 U/L (0-32); Blood Urea Nitrogen 11 mg/dL (6-20); Calcium 8.5 mg/dL (8.5-10.5); Carbon Dioxide 24 mmol/L (22-29); Chloride 104 mmol/L (98-107); Creatinine Clr Calc Pharmacy 154.0626; Globulin 3.3 g/dL (1.3-4.6); Glomerular Filtration Rate 93.2 mL/min (90-130); Glucose 95 mg/dL (65-115); Osmolality Calculated 279 mOsm/kg (285-295); Sodium 135 mmol/L (136-145); Total Bilirubin 0.2 mg/dL (0.15-1.2)
[2024-03-20 20:33] VITALS: BP 182/109; PULSE 78; O2SAT 97
== END 2024-03-20 20:37 | disposition home or self-care (01) ==
PROVIDERS: Emergency Provider Emergency Medicine; PCP Family Medicine Adult Medicine
DX: R53.81 Other malaise (principal); R51.9 Headache, unspecified; R42 Dizziness and giddiness; T43.205A Adverse effect of unspecified antidepressants, initial encounter; Z11.52 Encounter for screening for COVID-19
CPT/HCPCS: 0241U; 80053; 81001; 85025; 99283

== ENCOUNTER 2024-04-08 14:26 | Outpatient (CLI) | payer BC, SELFPAY ==
[2024-03-22 10:02] VITALS: BP 156/92; BMI 45.2
--- NOTE | 2024-04-08 14:32 | XRR_ITS ---
PROCEDURE INFORMATION: Exam: XR Left Knee Exam date and time: 04/08/2024 2:38 PM Age: 39 years old Clinical indication: Pain; Knee; Bilateral; Additional info: Joint pain TECHNIQUE: Imaging protocol: Radiologic exam of the left knee. Views: 3 views. COMPARISON: No relevant prior studies available. FINDINGS: Bones/joints: Mild tricompartment narrowing, moderate tricompartment spurring. No fracture or dislocation. No acute osseous or joint abnormality. Soft tissues: Normal. XR/XR knee LT 3V* [id number] IMPRESSION: Moderate degenerative changes.
--- NOTE | 2024-04-08 14:32 | XRR_ITS ---
PROCEDURE INFORMATION: Exam: XR Right Hip Exam date and time: 04/08/2024 2:38 PM Age: 39 years old Clinical indication: Hip pain; Right hip; Additional info: Joint pain TECHNIQUE: Imaging protocol: Radiologic exam of the right hip. Views: 1 view hip with pelvis when performed. COMPARISON: CT abdomen pelvis w con* [id number] 04/27/2023 8:11 PM FINDINGS: Bones/joints: Unremarkable. No acute fracture. No significant arthritic changes. Soft tissues: Unremarkable. XR/XR hip RT 2-3V wo/w pel* [id number] IMPRESSION: No acute findings.
--- NOTE | 2024-04-08 14:32 | XRR_ITS ---
PROCEDURE INFORMATION: Exam: XR Left Hip Exam date and time: 04/08/2024 2:38 PM Age: 39 years old Clinical indication: Hip pain; Left hip; Additional info: Joint pain TECHNIQUE: Imaging protocol: Radiologic exam of the left hip. Views: 2 or 3 views hip with pelvis when performed. COMPARISON: CT abdomen pelvis w con* [id number] 04/27/2023 8:11 PM FINDINGS: Bones/joints: Unremarkable. No acute fracture. No lytic or sclerotic bone lesion. No significant arthritic changes. Soft tissues: Unremarkable. XR/XR hip LT 2-3V wo/w pel* [id number] IMPRESSION: No acute findings.
--- NOTE | 2024-04-08 14:32 | XRR_ITS ---
PROCEDURE INFORMATION: Exam: XR Right Knee Exam date and time: 04/08/2024 2:38 PM Age: 39 years old Clinical indication: Pain; Knee; Bilateral; Additional info: Joint pain TECHNIQUE: Imaging protocol: Radiologic exam of the right knee. Views: 3 views. COMPARISON: No relevant prior studies available. FINDINGS: Bones/joints: Mild/moderate marginal spurring, no significant narrowing. No fracture or dislocation. No acute osseous or joint abnormality. Soft tissues: Normal. XR/XR knee RT 3V* [id number] IMPRESSION: Degenerative changes.
== END 2024-04-08 14:27 | disposition home or self-care (01) ==
LOC: RAD 14:28
PROVIDERS: PCP Family Medicine Adult Medicine; Visit Provider Pediatrics
DX: M17.0 Bilateral primary osteoarthritis of knee (principal); M25.559 Pain in unspecified hip; M25.761 Osteophyte, right knee; M25.762 Osteophyte, left knee
CPT/HCPCS: 73502; 73562

== ENCOUNTER → 2024-05-03 08:51 | Outpatient (BNVA) | payer BC, SELFPAY ==
[2024-03-22 10:02] VITALS: BP 156/92; BMI 45.2
== END ==
PROVIDERS: PCP Family Medicine Adult Medicine
DX: J02.9 Acute pharyngitis, unspecified (principal)
CPT/HCPCS: 87071; 87880

== ENCOUNTER 2024-06-18 09:33 | Outpatient (CLI) | payer BC, MEDICAID, SELFPAY ==
[2024-03-22 10:02] VITALS: BP 156/92; BMI 45.2
--- NOTE | 2024-06-18 09:40 | XRR_ITS ---
PROCEDURE INFORMATION: Exam: XR Thoracic Spine Exam date and time: 06/18/2024 10:07 AM Age: 39 years old Clinical indication: Pain in thoracic spine; Patient HX: No known injury, pain in lower back around level of crests that does not radiate, ; additional info: Back pain TECHNIQUE: Imaging protocol: Radiologic exam of the thoracic spine. Views: 3 views. AP Lateral Swimmer's COMPARISON: CR XR lumbar spine 2-3V* [id number] 06/18/2024 10:07 AM FINDINGS: Tubes, catheters and devices: None. Bones/joints: Twelve thoracic vertebra identified with bilateral paired ribs. Normal alignment of the vertebra without dislocation or spondylolisthesis. No visualized evidence for acute bony fracture or dislocation. Minimal disc disease with endplate osteophytes. Bony structures appear otherwise unremarkable. Soft tissues: Unremarkable. Lungs: Lung volumes are decreased. The lungs appear otherwise clear. Incomplete visualization of the lungs. Notes: If there is further concern or neurological abnormalities on clinical exam, recommend CT or MRI of the thoracic spine for complete assessment. XR/XR thoracic spine 3V* [id number] IMPRESSION: 1. No acute bony abnormality. 2. Minimal degenerative disc disease. 3. Decreased lung volumes.
--- NOTE | 2024-06-18 09:40 | XRR_ITS ---
PROCEDURE INFORMATION: Exam: XR Lumbosacral Spine Exam date and time: 06/18/2024 10:07 AM Age: 39 years old Clinical indication: Low back pain; Patient HX: No known injury, pain in lower back around level of crests that does not radiate, TECHNIQUE: Imaging protocol: Radiologic exam of the lumbosacral spine. Views: 2 or 3 views. AP Lateral and Con[place] down lateral COMPARISON: CR XR hip LT 2-3V wo/w pel* [id number] 04/08/2024 2:38 PM FINDINGS: Tubes, catheters and devices: None. Bones/joints: 5 [id number] lumbar-type vertebra are demonstrated. Normal alignment of the vertebra without dislocation or spondylolisthesis. No visualized evidence for acute bony fracture or dislocation. Bony structures appear otherwise unremarkable. Soft tissues: Unremarkable. Lungs: Visualized aspects of the chest appear grossly unremarkable. Notes: If there is further concern or neurological abnormalities on clinical exam, CT or MRI of the lumbar spine may be performed for complete assessment. XR/XR lumbar spine 2-3V* [id number] IMPRESSION: No acute abnormality identified.
== END 2024-06-18 09:34 | disposition home or self-care (01) ==
DX: M51.34 Other intervertebral disc degeneration, thoracic region (principal); M25.78 Osteophyte, vertebrae; Z68.43 Body mass index [BMI] 50.0-59.9, adult; F60.3 Borderline personality disorder; R91.8 Other nonspecific abnormal finding of lung field; M54.50 Low back pain, unspecified
CPT/HCPCS: 72072; 72100; 80053; 80061; 83036; 84439; 84443; 85025

== ENCOUNTER → 2024-07-02 09:55 | Outpatient (BNVA) | payer BC, SELFPAY ==
[2024-06-20 10:24] VITALS: BP 142/95; BMI 51.7
== END ==
PROVIDERS: Visit Provider Student in an Organized Health Care Education/Training Program
DX: M17.0 Bilateral primary osteoarthritis of knee (principal); M25.561 Pain in right knee; M25.562 Pain in left knee; G89.29 Other chronic pain
CPT/HCPCS: 73560; 73565

== ENCOUNTER 2024-07-03 08:16 | Outpatient (CLI) | payer BC, SELFPAY ==
[2024-03-22 10:02] VITALS: BP 156/92; BMI 45.2
[2024-06-20 10:24] VITALS: BP 142/95; BMI 51.7
--- NOTE | 2024-07-03 08:20 | MM_ITS ---
WS: [id number] SCREENING DIGITAL BREAST TOMOSYNTHESIS MAMMOGRAM WITH CAD HISTORY: screening COMPARISON: 02/24/2020, 01/10/2019 Bilateral CC and MLO with tomosynthesis and synthetic mammography submitted. Computer aided detection analyzed. Breast composition: There are scattered areas of fibroglandular density. New round, indistinct and hi gh density mass in the medial LEFT breast towards 9-10 o'clock. Mass is at a middle depth measuring 7 x 7 x 6 mm. No additional mass or abnormality. There are a few small benign calcifications. MM/MM [facility] tomosynthesis [id number] IMPRESSION: BI-RADS: 0 - Incomplete: Need additional imaging evaluation. FOLLOW UP: Need Additional Imaging LEFT breast: Spot compression views (CC and MLO). True ML. Ultrasound to follow if abnormality persists.
== END 2024-07-03 08:17 | disposition home or self-care (01) ==
LOC: RAD 08:17
DX: Z12.31 Encounter for screening mammogram for malignant neoplasm of breast (principal); R92.323 Mammographic fibroglandular density, bilateral breasts; N63.22 Unspecified lump in the left breast, upper inner quadrant; R92.1 Mammographic calcification found on diagnostic imaging of breast
CPT/HCPCS: 77063; 77067

== ENCOUNTER 2024-07-23 07:57 | Outpatient (CLI) | payer BC, MEDICAID, SELFPAY ==
[2024-06-20 10:24] VITALS: BP 142/95; BMI 51.7
--- NOTE | 2024-07-23 08:00 | MM_ITS ---
WS: [id number] ADDITIONAL VIEWS LEFT MAMMOGRAM WITH DIGITAL BREAST TOMOSYNTHESIS. LEFT breast ultrasound, limited HISTORY: abnormal mammo COMPARISON: 07/03/2024, 02/24/2020 Spot compression views LEFT breast in CC, MLO projections and true ML submitted with digital breast tomosynthesis and SM. Breast composition: There are scattered areas of fibroglandular density. Round mass with slight indistinct margins identified in the medial LEFT breast at approximately 9:00 measuring 7 x 6 x 6 mm. This is a high density mass with no calcifications. Margins are not well visualized. Ultrasound to follow. LEFT breast ultrasound, limited In the LEFT breast at 9:00 a complex cyst is identified with a fluid level. Cyst measures 6 x 5 x 6 mm and corresponds to the mammographic abnormality. There is no increased vascularity. No increased vascularity within the solid component or wall. MM/MM diag LT tomosynthesis [id number] IMPRESSION: BI-RADS: 3 - Probably Benign. FOLLOW UP: 6 Month Follow-up Recommendation: LEFT breast ultrasound follow-up of the complex cyst at 9:00.
--- NOTE | 2024-07-23 08:30 | US_ITS ---
WS: [id number] ADDITIONAL VIEWS LEFT MAMMOGRAM WITH DIGITAL BREAST TOMOSYNTHESIS. LEFT breast ultrasound, limited HISTORY: abnormal mammo COMPARISON: 07/03/2024, 02/24/2020 Spot compression views LEFT breast in CC, MLO projections and true ML submitted with digital breast tomosynthesis and SM. Breast composition: There are scattered areas of fibroglandular density. Round mass with slight indistinct margins identified in the medial LEFT breast at approximately 9:00 measuring 7 x 6 x 6 mm. This is a high density mass with no calcifications. Margins are not well visualized. Ultrasound to follow. LEFT breast ultrasound, limited In the LEFT breast at 9:00 a complex cyst is identified with a fluid level. Cyst measures 6 x 5 x 6 mm and corresponds to the mammographic abnormality. There is no increased vascularity. No increased vascularity within the solid component or wall. US/US breast LT limited* [id number] IMPRESSION: BI-RADS: 3 - Probably Benign. FOLLOW UP: 6 Month Follow-up Recommendation: LEFT breast ultrasound follow-up of the complex cyst at 9:00.
== END 2024-07-23 07:58 | disposition home or self-care (01) ==
LOC: RAD 07:57
DX: R92.8 Other abnormal and inconclusive findings on diagnostic imaging of breast (principal); R92.322 Mammographic fibroglandular density, left breast; N63.25 Unspecified lump in the left breast, overlapping quadrants
CPT/HCPCS: 76642; 77061; G0279

== ENCOUNTER → 2024-08-06 15:58 | Outpatient (BNVA) | payer BC, SELFPAY ==
[2024-06-20 10:24] VITALS: BP 142/95; BMI 51.7
== END ==
PROVIDERS: Visit Provider Nurse Practitioner Women's Health
DX: Z12.4 Encounter for screening for malignant neoplasm of cervix (principal)
CPT/HCPCS: 87624

== ENCOUNTER → 2024-08-28 11:28 | Outpatient (BNVA) | payer BC, SELFPAY ==
[2024-06-20 10:24] VITALS: BP 142/95; BMI 51.7
== END ==
PROVIDERS: Visit Provider Obstetrics & Gynecology
DX: N93.9 Abnormal uterine and vaginal bleeding, unspecified (principal)
CPT/HCPCS: 84443; 85025; 88305

== ENCOUNTER → 2024-09-03 12:38 | Outpatient (BNVA) | payer BC, SELFPAY ==
[2024-06-20 10:24] VITALS: BP 142/95; BMI 51.7
== END ==
PROVIDERS: Visit Provider Obstetrics & Gynecology
DX: R87.619 Unspecified abnormal cytological findings in specimens from cervix uteri (principal); N88.8 Other specified noninflammatory disorders of cervix uteri; N83.202 Unspecified ovarian cyst, left side
CPT/HCPCS: 76830

== ENCOUNTER 2024-10-17 11:43 | Outpatient (CLI) | payer MEDICAID, SELFPAY ==
[2024-06-20 10:24] VITALS: BP 142/95; BMI 51.7
--- NOTE | 2024-10-17 11:45 | MR_ITS ---
WS: [id number] MRI LUMBAR SPINE WITH AND WITHOUT CONTRAST HISTORY: lumbar back pain with sciatica COMPARISON: None available. TECHNIQUE: Sagittal and axial multisequence imaging is submitted. Normal lumbar alignment with no compression fractures or marrow edema. L3 hemangioma. Disc spaces and vertebral body heights are well-preserved. Conus terminates normally at L1-2 disc level. L1-L2: Normal. L2-L3: Normal. L3-L4: Broad-based small central disc protrusion with mild deformity of the ventral thecal sac. Very mild encroachment upon the subarticular recesses, LEFT greater than RIGHT. Very slight encroaching upon the traversing LEFT L4 nerve root. L4-L5: Asymmetric annular disc bulging to the LEFT. Deformity of the ventral thecal sac, greater involvement encroachment upon the traversing LEFT L5 nerve root. Mild bilateral subarticular recess stenosis, LEFT greater than RIGHT. Mild LEFT foraminal narrowing. Mild facet disease. L5-S1: Mild facet arthritis. Mild bilateral foraminal narrowing. Paravertebral soft tissues are negative. No discitis or osteomyelitis. No enhancing masses. MR/MR lumbar spine wo/w con [id number] IMPRESSION: 1. No discitis or osteomyelitis. 2. L4-5: Asymmetric disc bulging to the LEFT. Mild disc encroachment of the tr aversing LEFT L5 nerve root. Very minimal bilateral subarticular recess and LEF T foraminal stenosis. 3. L3-4: Broad-based central disc protrusion. Mild disc encroachment upon the subarticular recesses and traversing L4 nerve roots, LEFT greater than RIGHT. 4. L5-S1: Mild bilateral foraminal stenosis.
== END 2024-10-17 11:44 | disposition home or self-care (01) ==
PROVIDERS: Visit Provider Family Medicine
DX: M54.41 Lumbago with sciatica, right side (principal); G89.29 Other chronic pain; M51.369 Other intervertebral disc degeneration, lumbar region without mention of lumbar back pain or lower extremity pain; M51.26 Other intervertebral disc displacement, lumbar region; M48.07 Spinal stenosis, lumbosacral region; M48.061 Spinal stenosis, lumbar region without neurogenic claudication; M47.896 Other spondylosis, lumbar region; M47.897 Other spondylosis, lumbosacral region
CPT/HCPCS: 72158

== ENCOUNTER → 2024-11-21 07:58 | Outpatient (BNVA) | payer MEDICAID, SELFPAY ==
[2024-06-20 10:24] VITALS: BP 142/95; BMI 51.7
== END ==
PROVIDERS: PCP Family Medicine; Visit Provider Physician Assistant
DX: M25.561 Pain in right knee (principal); M25.562 Pain in left knee; G89.29 Other chronic pain
CPT/HCPCS: 73560; 73565

== ENCOUNTER 2024-11-27 16:34 | Outpatient (CLI) | payer MEDICAID, SELFPAY ==
[2024-11-27 08:02] VITALS: BP 142/95; BMI 51.7
== END 2024-11-27 16:35 | disposition home or self-care (01) ==
LOC: LAB 16:38
DX: N92.0 Excessive and frequent menstruation with regular cycle (principal); R22.43 Localized swelling, mass and lump, lower limb, bilateral
CPT/HCPCS: 80053; 83880; 85025; 85379

== ENCOUNTER 2024-12-03 09:20 | Emergency (ER) | payer MEDICAID, SELFPAY ==
[2024-12-03 09:26] VITALS: BP 115/79; PULSE 61; RESP 20; TEMP 36.5; O2SAT 98
[2024-12-03 10:38] LABS: Basophils # 0.1 10^3/uL (0.0-0.1); Basophils % 0.5 %; Eosinophils # 0.1 10^3/uL (0.0-0.8); Eosinophils % 1.2 %; Hematocrit 38.8 % (36-47); Lymphocytes # 2.4 10^3/uL (0.8-4.8); Lymphocytes % 23.6 %; Mean Corpuscular HGB Conc 30.4 g/dL (30-55); Mean Corpuscular Hemoglobin 26.2 pg (27-33); Mean Platelet Volume 9.9 fL (7.4-10.4); Monocytes # 0.7 10^3/uL (0.2-0.9); Monocytes % 7.1 %; Neutrophils # 6.91 10^3/uL (1.8-7.7); Neutrophils % 66.8 %; Nucleated Red Blood Cells % 0 %; Platelet Count 285 10^3/cmm (157-399); Red Blood Count 4.51 10^6/uL (3.85-5.65); Red Cell Distribution Width 18.1 % (12.1-15.1); White Blood Count 10.33 10^3/uL (3.29-11.43)
[2024-12-03 10:53] LABS: Alanine Aminotransferase 16 U/L (0-33); Albumin Level 3.4 g/dL (3.5-5.2); Alkaline Phosphatase 74 U/L (35-105); Anion Gap 15.3 (5-19); Aspartate Amino Transferase 13 U/L (0-32); Blood Urea Nitrogen 10 mg/dL (6-20); Calcium 8.5 mg/dL (8.5-10.5); Carbon Dioxide 24 mmol/L (22-29); Chloride 103 mmol/L (98-107); Creatinine Clr Calc Pharmacy 155.9165; Globulin 3.2 g/dL (1.3-4.6); Glomerular Filtration Rate 93.2 mL/min (90-130); Glucose 93 mg/dL (65-115); Osmolality Calculated 285 mOsm/kg (285-295); Potassium 4.3 mmol/L (3.5-5.1); Sodium 138 mmol/L (136-145); Total Bilirubin 0.2 mg/dL (0.15-1.2); Total Protein 6.6 g/dL (6.6-8.7)
[2024-12-03 11:00] LABS: HCG, Serum Qual Negative (Negative)
--- NOTE | 2024-12-03 11:57 | ED_ITS ---
HPI - Female Genitourinary 2 General: Chief complaint: Vaginal Bleeding Stated complaint: vaginal bleeding for almost 2 months, dizzy Time Seen by Provider: 12/03/24 09:41 Source: patient Mode of arrival: ambulatory Limitations: no limitations History of Present Illness: Patient is a 39-year-old female who presents to the ED with increasing vaginal bleeding with accompanying cramping. She states she has been dealing with heavy bleeding for approximately a month and a half. She went to see Dr. Thomas who put her on an OCP last Monday. Patient states it caused her to bleed more and made her nauseous, so she stopped taking it. She states the bleeding is medium to large clots and that she was going through a pad every 3 hours, so she switched to wearing adult diapers. She had an episode like this in her 20s, and stated that she had to have 2 Depo shots to make the bleeding stopped. She was not regularly on control until she was prescribed it last Monday, and she reports not having regular cycled periods. She has a history of PCOS, and had a tubal ligation approximately 2 years ago. She has an appointment on in [place] to discuss a hysterectomy. She also reports having headaches and getting dizzy when she stands up, and states she has had decreased appetite and has not been hydrating well. She denies any urinary symptoms, syncopal episodes, bleeding disorders, heart conditions, history of molar pregnancies, chance of , history of fibroids. MD elicited complaint: vaginal bleeding Pertinent past history: prior miscarriages and tubal ligation Onset (ago): month(s) Location of symptoms: vaginal Severity: mild Female Urogenital Radiation: Suprapubic Quality of pain: cramping Consistency: intermittent Vaginal bleeding: heavy and clots Exacerbating factors: none Relieving factors: none Associated symptoms: Reports headache(s), nausea and other (Dizziness with postural change); Deny abdominal pain or syncope Treatment prior to arrival: acetaminophen, NSAIDs and other (OCP) Sexual activity: Yes Patient : No Related Data Previous Rx's ?Medication ?Instructions ?Recorded acetaminophen 325 mg capsule 325 mg PO Q4H PRN fever o r pain 04/25/23 Held on 09/05/23. #60 caps Instructions: Resume on 09/10/23. albuterol sulfate 90 mcg/actuation 2 inh inhalation Q4 H PRN shortness 06/17/23 aerosol inhaler of breath or wheezing #6.7 g karina ibuprofen 600 mg tablet 600 mg PO Q8H PRN pain #30 t abs 10/05/24 tramadol 50 mg tablet 50 mg PO Q6H PRN pain 5 days #20 10/05/24 tabs topiramate 25 mg tablet (Topamax) 25 mg PO BID PRN Ner ve pain #60 10/23/24 tabs tizanidine 4 mg tablet 4 mg PO BID PRN muscle spast icity 11/13/24 #60 tabs propranolol 20 mg tablet See Rx Instructions PO .COMP LIZA 11/21/24 anxiety #120 tabs sertraline 50 mg tablet 50 mg PO .q am #30 tabs 11/10 08/06 norethindrone 0.4 mg-ethinyl 1 tab PO DAILY #84 tabs 0 11/27/24 estradiol 35 mcg tablet Allergies Allergy/AdvReac Type Severity Reaction Status Date / Time duloxetine Allergy Intermediate ADR-PALPITA Verified 11/27/24 15:40 TIONS adhesive Allergy ALGY-Bliste Verified 11/27/24 15:40 r SOYBEAN OIL Allergy Severe ANAPHYLAXIS Uncoded 11/27/24 15:40 Review of Systems 2 Const: Reports: change in appetite (Has not been eating/drinking much within the past couple days); Denies: fever(s), chills or body aches Eyes: Denies: change in vision or blurry vision Card: Denies: chest pain, palpitations, irregular heart rhythm, edema, syncope or pre-syncope Resp: Denies: dyspnea or productive cough GI: Reports: nausea; Denies: abdominal pain, vomiting, diarrhea or constipation : Reports: vaginal bleeding, irregular period and pelvic pain (cramping); Denies: flank pain, difficulty voiding, dysuria, urinary urgency or hematuria Neuro: Reports: headache(s) and dizziness; Denies: numbness in extremities, weakness in extremities, sensory changes, lack of coordination or difficulty walking PFSH ED 2 PFSH: Medical History Chronic low back pain with right-sided sciatica Abnormal mammogram of left breast Family history of breast cancer in first degree relative Back pain Stress incontinence in female BMI 50.0-59.9, adult Chronic pain of both knees Migraine Constipation by delayed colonic transit Atypical squamous cell changes of undetermined significance (ASCUS) on cervical cytology with positive high risk human papilloma virus (HPV) Lesion of right upper eyelid Generalized anxiety disorder with panic attacks Psychiatric care Insomnia disorder with non-sleep disorder mental comorbidity Ganglion cyst of dorsum of right wrist Severe obstructive sleep apnea-hypopnea syndrome Night terrors, adult Infertility 04/15/2014-- Discussed that her inability to get was possibly because of an ovulation caused by PCO S.. given that her is 52 years old with medical problems like diabetes I would also recommend a [id number] evaluation to rule out male factor as a cause for her infertility. I would recommend him getting a sperm count as well. Discussed that I would recommend initial regulation of her period for about 6 months and then we can consider ovulation induction with Clomid. Offered her the option of seeing an infertility specialist which she declines at this point. We will reevaluate her infertility in 6 months. PCOS (polycystic ovarian syndrome) 04/12/19--Patient came with irregular bleeding-first, who has a history of oligomenorrhea. Pelvic ultrasound done showed normal uterus and multifolicular ovaries. Bilateral ovaries had several follicles. Discussed that her oligomenorrhea and excess vaginal bleeding when she gets her period as well as increased hair growth noticed on her face were sufficient to give her a diagnosis of PCOS. Post traumatic stress disorder (PTSD) Surgical History Hx of excision of mass Excision of subcutaneous mass of scalp measuring 1.5 cm in greatest diameter- 09/05/23 Dr Cornejo Hx laparoscopic cholecystectomy 07/18/23 Dr. Cornejo H/O bilateral salpingectomy (~04/25/23) Family History Mother Breast cancer dx age Hypertension Grandmother Hypertension MATERNAL AND PATERNAL Diabetes MATERNAL Grandfather Hypertension MATERNAL AND PATERNAL Heart disease MATERNAL AND PATERNAL Family/Other No problems noted. Other Borderline personality disorder Denies family history of Colon cancer Ovarian cancer Hyperlipidemia Uterine cancer Thyroid disease Stroke Social History Smoking and tobacco/nicotine status: former use of tobacco/nicotine Second hand smoke exposure: No Alcohol intake: never Adopted: No Caregiver/support person: No Lives independently: Yes Housing: Other Marital status: Number of children: 1 Highest education level completed: High School Graduate service: No Current occupational status: unemployed Pets and animals: Yes Leisure activites: music Sexually active: Yes Current gender identity: Female Argenis/Yazidism: Other Special argenis needs: No Agree to transfusion: Yes Female Reproductive History: Para: 1 Spontaneous abortions: No Physical Exam 2 Const: COMMON NORMALS: no acute distress, patient oriented x3, no limitations, alert and well nourished GENERAL APPEARANCE: cooperative NUTRITIONAL APPEARANCE: obese morbidly obese ORIENTATION/CONSCIOUSNESS: Yes oriented to person, Yes oriented to place and Yes oriented to time HENMT: COMMON NORMALS: normocephalic HEAD & SCALP: normocephalic Eye: COMMON NORMALS: EOMs intact bilaterally and conjunctivae normal G ENERAL EYE: appearance normal, both eyes and all related structures C ONJUNCTIVA: Yes conjunctivae normal Chest: COMMONS NORMALS: normal inspection of the chest CHEST: Yes Symmetrical chest wall rise Resp: COMMON NORMALS: normal respiratory effort, No retractions and No use of accessory muscles EFFORT & INSPECTION: Yes able to speak in complete sentences and Yes symmetric chest movement Cardio: COMMON NORMALS: regular rate and regular rhythm RATE: regular rate RHYTHM: regular rhythm GI: COMMON NORMALS: Normal to inspection, nondistended, normoactive bowel sounds present, Soft to palpation, non-tender, No hepatosplenomegaly present and no masses INSPECTION: Yes normal to inspection PALPATION: Yes Soft to palpation, No Guarding due to palpation present (GI) and Yes No hepatosplenomegaly present : COMMON NORMALS: Yes no CVA tenderness BLADDER/KIDNEY EXAM: Yes no CVA tenderness Back/Pelvis: COMMON NORMALS: no CVA tenderness Neuro: COMMON NORMALS: patient oriented x3, moves all extremities and no focal motor deficits SENSORIUM/ORIENTATION: Yes alert, Yes oriented to person, Yes oriented to place and Yes oriented to time Skin: COMMON NORMALS: no rashes or lesions noted GENERAL SKIN EXAM: no rashes or lesions noted Course 2 Consultations: Consultation #1: Dr. Thomas-recommended 150mg depo-provera Vital Signs: Vital signs: Vital Signs Temperature 97.7 F 12/03/24 09:26 Pulse Rate 61 12/03/24 09:26 Respiratory Rate 20 H 12/03/24 09:26 Blood Pressure 115/79 12/03/24 09:26 Pulse Oximetry 98 12/03/24 09:26 Oxygen Delivery Me thod Room Air 12/03/24 09:26 MDM - Female Medical Decision Making Patient is hemodynamically stable. Her vital signs are normal. Her H&H is stable. It has only dropped 0.6 over the past week. 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 Medical Records I reviewed the patient's medical records. Lab Data I reviewed the patient's lab results. 12/03/24 10:28 12/03/24 10:28 Laboratory Results WBC 10.33 10^3/uL (3.29-11.43) 12/03/24 10:28 RBC 4.51 10^6/uL (3.85-5.65) 12/03/24 10:28 Hgb 11.80 g/dL (11.27-16.99) 12/03/24 10:28 Hct 38.8 % (36-47) 12/03/24 10:28 MCV 86.0 fl (85-98) 12/03/24 10:28 MCH 26.2 pg (27-33) L 12/03/24 10:28 MCHC 30.4 g/dL (30-55) 12/03/24 10:28 RDW 18.1 % (12.1-15.1) H 12/03/24 10:28 Plt Count 285 10^3/cmm (157-399) 12/03/24 10:28 MPV 9.9 fL (7.4-10.4) 12/03/24 10:28 Neut % (Auto) 66.8 % 12/03/24 10:28 Lymph % (Auto) 23.6 % 12/03/24 10:28 [place] % (Auto) 7.1 % 12/03/24 10:28 Eos % (Auto) 1.2 % 12/03/24 10:28 Baso % (Auto) 0.5 % 12/03/24 10:28 Neut # (Auto) 6.91 10^3/uL (1.8-7.7) 12/03/24 10:28 Lymph # (Auto) 2.4 10^3/uL (0.8-4.8) 12/03/24 10:28 [place] # (Auto) 0.7 10^3/uL (0.2-0.9) 12/03/24 10:28 Eos # (Auto) 0.1 10^3/uL (0.0-0.8) 12/03/24 10:28 Baso # (Auto) 0.1 10^3/uL (0.0-0.1) 12/03/24 10:28 Nucleated RBC % (auto) 0 % 12/03/24 10:28 Nucleated RBCs # 0.0 /100WBC 12/03/24 10:28 Sodium 138 mmol/L (136-145) 12/03/24 10:28 Potassium 4.3 mmol/L (3.5-5.1) 12/03/24 10:28 Chloride 103 mmol/L (98-107) 12/03/24 10:28 Carbon Dioxide 24 mmol/L (22-29) 12/03/24 10:28 Anion Gap 15.3 (5-19) 12/03/24 10:28 BUN 10 mg/dL (6-20) 12/03/24 10:28 Creatinine 0.7 mg/dL (0.5-0.9) 12/03/24 10:28 GFR Calculation 93.2 mL/min (90-130) 12/03/24 10:28 Glucose 93 mg/dL (65-115) 12/03/24 10:28 Calculated Osmolality 285 mOsm/kg (285-295) 12/03/24 10:28 Calcium 8.5 mg/dL (8.5-10.5) 12/03/24 10:28 Total Bilirubin 0.2 mg/dL (0.15-1.2) 12/03/24 10:28 AST 13 U/L (0-32) 12/03/24 10:28 ALT 16 U/L (0-33) 12/03/24 10:28 Alkaline Phosphatase 74 U/L (35-105) 12/03/24 10:28 Total Protein 6.6 g/dL (6.6-8.7) 12/03/24 10:28 Albumin 3.4 g/dL (3.5-5.2) L 12/03/24 10:28 Globulin 3.2 g/dL (1.3-4.6) 12/03/24 10:28 HCG, Qual Negative (Negative) 12/03/24 10:28 No radiology studies performed this visit Discharge Plan Discharge Patient Disposition: Home Clinical Impression: Menometrorrhagia Condition: Stable Prescriptions: No Action albuterol sulfate 90 mcg/actuation HFA aerosol inhaler 2 inh inhalation Q4H PRN (Reason: shortness of breath or wheezing) Qty: 6.7 0RF tramadol 50 mg tablet 50 mg PO Q6H PRN (Reason: pain) 5 Days Qty: 20 0RF ibuprofen 600 mg tablet 600 mg PO Q8H PRN (Reason: pain) Qty: 30 0RF topiramate [Topamax] 25 mg tablet 25 mg PO BID PRN (Reason: Nerve pain) Qty: 60 0RF propranolol 20 mg tablet See Rx Instructions PO .COMPLEX Qty: 120 1RF Rx Instructions: Take one or two tablets up to twice a day, if needed, for anxiety sertraline 50 mg tablet 50 mg PO .q am Qty: 30 1RF Rx Instructions: Take one tablet by mouth every morning norethindrone-ethin estradiol 0.4-35 mg-mcg tablet 1 tab PO DAILY Qty: 84 0RF Rx Instructions: take two tabs daily x 5 days, then one tab daily tizanidine 4 mg tablet 4 mg PO BID PRN (Reason: muscle spasticity) Qty: 60 0RF acetaminophen 325 mg capsule 325 mg PO Q4H PRN (Reason: fever or pain) Qty: 60 0RF Discharge Orders: Discharge ED (Routine); Ordered 12/03/24 Ordered By: Lenore Valdovinos Referrals: Lydia Gonzales NP [Primary Care Provider, Family Practice] Patient Instructions: Patient Portal & Ela Instructions Activity Restrictions/Additional Instructions: As we discussed, you were given a Depo-Provera injection prior to discharge at the request of Dr. Thomas. Please continue plan for follow-up in [place] for evaluation for hysterectomy on as scheduled. You may return to the emergency department at anytime for any further concerns you may have. Print Language: Colombian Coding Level of Care Code ED Labor Training Manager for Rai Domingo
[2024-12-03 12:32] VITALS: BP 132/82; PULSE 54; O2SAT 99
[2024-12-03] MEDS: medroxyprogesterone 150 mg/ml SDV 1 mL IM (12:36)
== END 2024-12-03 12:32 | disposition home or self-care (01) ==
PROVIDERS: Emergency Provider Physician Assistant
DX: N92.1 Excessive and frequent menstruation with irregular cycle (principal); Z87.891 Personal history of nicotine dependence
CPT/HCPCS: 36415; 80053; 84703; 85025; 96372; 99284; J1050

== ENCOUNTER 2025-01-27 11:54 | Outpatient (CLI) | payer MEDICAID, SELFPAY ==
[2024-06-20 10:24] VITALS: BP 142/95; BMI 51.7
--- NOTE | 2025-01-27 12:45 | US_ITS ---
WS: [id number] ULTRASOUND BREAST LEFT TECHNIQUE: Ultrasound left breast focused area of concern. CLINICAL INFORMATION: 6 month f/u of abnormal us COMPARISON: 6-month follow-up. Ultrasound 07/23/2024 FINDINGS: Again seen at the 9 o'clock position LEFT breast retroareolar is a complex cyst with some internal debris. This measures approximately 6 x 6 x 5 mm unchanged compared to previous. This has a benign appearance and recommend return to annual screening mammography. US/US breast LT limited* [id number] IMPRESSION: BI-RADS 2 benign Return to annual screening mammography.
== END 2025-01-27 11:55 | disposition home or self-care (01) ==
LOC: RAD 11:55
PROVIDERS: PCP Family Medicine
DX: R92.8 Other abnormal and inconclusive findings on diagnostic imaging of breast (principal); N60.02 Solitary cyst of left breast
CPT/HCPCS: 76642